=== PATIENT | male | born 1935 | race Caucasian/White ===

== ENCOUNTER → 2017-07-20 15:42 | Outpatient (CLI) | payer MEDICARE, SELFPAY ==
[2017-07-20 17:22] LABS: Hematocrit 43.8 % (40-54); Hemoglobin 13.9 g/dl (13.0-16.5); Mean Corp Hgb Conc 31.7 g/gl (32-36); Mean Corpuscular Hgb 28.8 pg (27.0-32.0); Mean Corpuscular Volume 90.9 fL (80-94); Mean Platelet Vol. 10.6 fl (6.2-12.0); Platelet Count 210 K/mm3 (150-450); RBC Distribution Width CV 18.5 % (11.6-14.6); RBC Distribution Width SD 59.8 fl (35.1-43.9); Red Blood Count 4.82 M/mm3 (4.6-6.2); White Blood Count 6.9 K/mm3 (4.4-11.0)
[2017-07-20 17:27] LABS: Scan Indicated on CBC? Y/N NO
[2017-07-20 17:28] LABS: Iron 32 ug/dL (65-175)
== END ==
PROVIDERS: Family Provider Family Medicine; PCP Family Medicine; Visit Provider Internal Medicine Gastroenterology
DX: D50.9 Iron deficiency anemia, unspecified (principal); K92.2 Gastrointestinal hemorrhage, unspecified
CPT/HCPCS: 36415; 83540; 85027

== ENCOUNTER 2017-07-30 10:55 | Day surgery (SDC) | payer MEDICARE, SELFPAY ==
--- NOTE | 2017-07-24 07:27 | EKG12_ITS ---
Test Reason : PRE-OP Blood Pressure : / mmHG Vent. Rate : 077 BPM Atrial Rate : 077 BPM P-R Int : 186 ms QRS Dur : 112 ms QT Int : 402 ms P-R-T Axes : 021 -12 004 degrees QTc Int : 454 ms Sinus rhythm with Premature atrial complexes Confirmed by THAIS STEPHENS, CHRISTINA ([id number]), editorial specialist ALEX CARPENTER ([id number]) on 07/25/2017 2:28:57 PM Referred By: Memo Rivero Confirmed By:CHRISTINA PLASCENCIA MD
[2017-07-24 08:14] LABS: Hemoglobin 13.9 g/dl (13.0-16.5); Mean Corp Hgb Conc 31.6 g/gl (32-36); Mean Corpuscular Hgb 28.8 pg (27.0-32.0); Mean Corpuscular Volume 91.1 fL (80-94); Mean Platelet Vol. 10.3 fl (6.2-12.0); Platelet Count 201 K/mm3 (150-450); RBC Distribution Width CV 17.8 % (11.6-14.6); RBC Distribution Width SD 59.4 fl (35.1-43.9); Red Blood Count 4.83 M/mm3 (4.6-6.2); Scan Indicated on CBC? Y/N NO
[2017-07-24 08:40] LABS: AST(SGOT) 17 U/L (15-37); Alanine Aminotransfer ALT/SGPT 20 U/L (16-61); Albumin, Serum 3.5 g/dL (3.2-5.0); Alkaline Phosphatase 77 U/L (45-117); Globulin 3.2 g/dL (2.2-4.2); Protein, Total 6.7 g/dL (6.4-8.2)
[2017-07-24 08:54] LABS: International Normalized Ratio 1.1; Prothrombin Time (Protime)PT. 13.6 SECONDS (11.7-14.9)
[2017-07-30] VITALS (8 sets, daily range): BP systolic 124–153; BP diastolic 89–101; PULSE 79–112; RESP 16–18; TEMP 36.3–36.4; O2SAT 98–100; BMI 33.0
--- NOTE | 2017-07-30 | MISC_PTH ---
PATIENT: BAO LUGO LOC: [facility] [place] U#:[id number] AGE/SX: 81/M ROOM: RE07/30/[address]: Dr. Memo Rivero MD : [id number] BED: DIS: 07/30/2017 SPEC #: [id number] RECD: 07/30/17 15:11 STATUS: STONEFalguni KAYLEIGH #: [id number] JANEE: 07/30/17 00:[address]: Memo Rivero DEPT: SURGICAL PATHOLOGY RECD BY: Zeeshan Martínez ENTERED: 07/30/17 15:25 SP TYPE: MISC SEVEN DR: Dr. Pranav Castaneda, DO Tissues: Adipose tissue Procedures: Surgery Specimen Level III HEADER OPERATION: Hernia, inguinal wish mesh PRE-OP DIAGNOSIS: Left inguinal hernia TISSUE SUBMITTED: Preperineal fat MICROSCOPIC DIAGNOSIS Preperineal fat, excision: Mature adipose tissue. AM:matilda 07/31/17 COMMENT The lesion may represent a lipoma. Clinical correlation is suggested. MICROSCOPIC DESCRIPTION Slides are reviewed. GROSS DESCRIPTION Received in fixative is one container labeled with the patient's name and designated preperineal fat. The specimen consists of an irregular fragment of yellow fatty tissue measuring 23 x 11 x 3.5 cm. Sections reveal homogenous yellow cut surfaces without areas of cyst formation, necrosis or myxoid change. [place] sections are submitted in one cassette. / AM:matilda 07/30/17 TC:1 CPT: 71417
[2017-07-30] MEDS: Cefazolin 2 GM in 0.9% Normal Saline 100 ML IV (12:27)
[2017-07-30] MEDS: Bupivacaine 0.25% 30 ML Vial (13:00)
--- NOTE | 2017-07-30 14:10 | PCM.OPRPT ---
Report of Operation Date of Procedure: 07/30/17 Pre-Operative Diagnosis: left inguinal hernia Post-Operative Diagnosis: left inguinal hernia - indirect with large preperitoneal fat Surgery/Procedure Performed:: left inguinal hernia with mesh plug - Large enlisted advisor: Arnold Ag Type of Anesthesia:: Local MAC Anesthesiologist: Mono Gonzalez - ASA2 Specimen's removed: preperitoneal fat Estimated Blood Loss (mL): 20 Fluids Replaced: 1500 Description of Procedure: The patient was brought to the operating suite. Sign in was performed verifying patient, site, procedure, position, and DVT prophylaxis with SCDs. Patient received 2 g Ancef antibiotic prophylaxis. Following induction of IV sedation, the patients left inguinal region was prepped and draped in the usual fashion. Timeout was performed verifying patient, site, position. Local anesthetic was injected at the site of the anterior superior iliac spine for a regional block. The 50-50 mixture of lidocaine and Marcaine was then injected along the planned course of the skin incision. A linear incision was made and dissection carried down to the external oblique aponeurosis. Traversing veins ligated with 3-0 Vicryl ties and divided. Local anesthetic was then injected into the inguinal canal. A clean scalpel blade was used to open the lower canal in the direction of the fibers and a Metzenbaum scissor was used to further dissect and open the canal. Care was taken to avoid injury to the ilioinguinal nerve. Following this, the spermatic cord was surrounded at the level of the pubic tubercle and brought up in the operative field with a [place] drain. a large amount of preperitoneal fat was contained in a very thin sac which continued out the external inguinal ring and into this hemiscrotum. This was reproduced. Dissection was continued up to the internal ring clearing the cremasteric fibers. The patient was noted to have a weak floor but no true direct inguinal hernia. Dissection of the cord was undertaken which demonstrated a large amount of preperitoneal fat and what seemed to be a smaller indirect hernia. Dissection of this large amount of fat with a mushroom shaped area which was not able to be fully reduced, was sequentially dissected, divided and ligated with 3-0 Vicryl ties. At this point. This preperitoneal fat was able to reduced and was felt to be a smaller hernia defect was also reduced. There was no true sac which was opened. This again seen. The preperitoneal and did not seem to enter the abdominal cavity with digital insertion. A large mesh plug was then placed into the internal ring and secured with interrupted 0 Prolene sutures. [place] mesh was secured using a Bard keyhole shaped mesh secured at the level of the pubic tubercle and run from [place]opers ligament transitioning to the ilioinguinal ligament inferiorly using an 0 Prolene suture. Next an 0 Prolene suture was used to secure the mesh to the transversus arch. The tails of the mesh were placed around the spermatic cord to create a new internal ring and the tails closed with a running 0 Prolene suture. The spermatic cord and the ilioinguinal nerve returned to its anatomic position. The external oblique was closed with a running 3-0 Vicryl suture. Subcutaneous fat was closed with interrupted 3-0 Vicryl suture. Skin was closed with a running 4-0 Monocryl subcuticular sutures. Steri-Strips and bandages were applied. The patient was brought to recovery room in stable condition. Grafts/Implants Used: Bard Mesh Perfix Large - [id number] Lot [id number] - exp 12/13/2021 - Admit VTE Documentation VTE Present on Admission: No VTE Mechan Device Prophylaxis: SCD's VTE Pharm Prophylaxis ordered?: No
--- NOTE | 2017-07-30 14:18 | PCM.DC.HER ---
Discharge Diet: Light diet - advance as tolerated Discharge Activity: Return to Normal Activity, May Drive - when you are no longer taking narcotic pain medications., May Shower - with the bandage in place 1-2 days after surgery. Lifting Restrictions: 20 pounds for 8 weeks. Additional Activity Instructions:: Climbing stairs is fine, walking is encouraged. Sitting in bed may be uncomfortable. Sitting up using your lateral muscles (sitting up sideways) is usually more comfortable. Do not drive, work heavy equipment of sign legal documents for 24 hours. If your hernia repair was an ingunial repair, you may have scrotal swelling, an ice pack and/or athletic support can provide more comfort. Pain medications may cause nausea, you should typically eat light foods as you take your pain medications. Pain medications may also cause constipation. If you have difficulty with this, discuss with your doctor. Call your doctor if your incision/area has: Continuous Slow Oozing, Sudden Increased Bleeding, Increased Pain/ Swelling, Increased Redness, Foul Smelling Discharge Call your doctor if you observe: Fever of 101 or Higher Suture Line Care: Avoid Pulling/Pushing, Avoid Pinching/Bending Additional Dressing/Incision Instructions:: Leave the operative bandage on for 2-3 days. When you remove the bandage, leave the steri-strips on place until your follow up appointment or they fall off. Allergies/Adverse Reactions: Allergies iodine Allergy (Verified 07/23/17 14:12) Anaphylaxis shellfish derived Allergy (Verified 07/23/17 14:13) Anaphylaxis Medications to take at Discharge Lovastatin [Mevacor] 40 mg PO QHS 12/30/13 Cholecalciferol (Vitamin D3) [Vitamin D3] 1,000 unit PO QHS 05/28/17 Cyanocobalamin (Vitamin B-12) [Vitamin B12] 1,000 mcg PO QHS 05/28/17 Omeprazole [Prilosec] 20 mg PO QHS 05/28/17 Ascorbic Acid [Vitamin C] 500 mg PO DAILY 07/23/17 Cetirizine HCl [Zyrtec] 10 mg PO DAILY 07/23/17 Fluticasone 0.05% [Flonase Nasal [place]] 1 spray NASAL DAILY 07/23/17 Ferrous Sulfate 325 mg PO DAILY 07/30/17 Oxycodone [Oxyir] 5 mg PO Q6H PRN PRN 7 Days #14 tab 07/30/17 The following prescriptions were given: Oxycodone [Oxyir] 5 mg PO Q6H PRN PRN 7 Days #14 tab PRN Reason: Mod-Severe Pain (-03/27) Primary Care Physician: Pranav Castaneda DO [Primary Care Provider] - Please Follow Up With: Memo Rivero MD - [phone] When: Plan to have a follow up appointment in 7 days. Call to schedule.
== END 2017-07-30 16:00 | disposition home or self-care (01) ==
LOC: SDC 10:56 → AC 10:57
PROVIDERS: Family Provider Family Medicine; PCP Family Medicine; Visit Provider Surgery
PROC: (CPT 49505; principal; 2017-07-30 12:15)
DX: K40.90 Unilateral inguinal hernia, without obstruction or gangrene, not specified as recurrent (principal); K21.9 Gastro-esophageal reflux disease without esophagitis; E78.5 Hyperlipidemia, unspecified; I10 Essential (primary) hypertension; Z85.46 Personal history of malignant neoplasm of prostate; Z86.73 Personal history of transient ischemic attack (TIA), and cerebral infarction without residual deficits; Z87.442 Personal history of urinary calculi; Z79.899 Other long term (current) drug therapy; Z87.891 Personal history of nicotine dependence; Z86.718 Personal history of other venous thrombosis and embolism
CPT/HCPCS: 49505; 36415; 80076; 85027; 85610; 85730; 88304; J7120; C1781; J2405

== ENCOUNTER 2017-08-06 15:46 | Emergency (ER) | payer MEDICARE, SELFPAY ==
[2017-08-06 15:48] VITALS: BP 138/69; PULSE 104; RESP 16; TEMP 36.6; O2SAT 99; BMI 32.8
--- NOTE | 2017-08-06 16:35 | ED.DCSUM_ITS ---
- ER Visit Summary Date of Service: 08/06/17 Chief Complaint: Patient venous duplex positive for gastrocnemius DVT History of Present Illness: The patient is a 81 M who recently had left inguinal hernia repair by Dr. Myers on July 30. He presents because he had an outpatient venous duplex study that reveals a gastrocnemius clot that is 3 cm in length. He was diagnosed with a GI bleed July 20. He was told by Dr. Beatty that he should not take aspirin or any anticoagulant. He denies fever, chills night sweats. He denies shortness of breath, chest discomfort or hemoptysis. He has no other complaints. Past medical history of CVA ?3, diabetes, hypertension, hypercholesterolemia and GERD. He has a remote history of prostate cancer, 20 years ago. He also had stent placed for abdominal aortic aneurysm that measured 4.7 cm. Physical Examination: Signs are unremarkable. Heart rate on my exam was 90. Examination of the left lower extremity reveals pain palpation mid calf. There is no neurovascular compromise. Heart is regular without murmur, gallop or rub. Lungs clear to auscultation. Test Results: Reviewed dictated notes regarding outpatient venous duplex study Emergency Department Course and Treatment: Patient was told that a recent significant GI bleed anticoagulation is contraindicated. Since this clot is below the popliteal patient will have outpatient follow-up ultrasound on August 09, , August 20 and September 03. I did speak with the nurse practitioner who sent him to the emergency room. She was told the plan. Furthermore she was told if the clot propagates into the popliteal or femoral system he will need a Elias filter. Treatment Plan: Serial outpatient venous duplex studies Disposition: Discharge to home with outpatient venous duplex studies Impression: DVT left gastrocnemius pain This note was generated with [employer] dictation software. It may contain incorrect words, spelling, and punctuation that were not noted in review of the chart prior to signing ED Disposition - Plan for ED Patient: Disposition: Home or Assisted Living Chief Complaint: Lower Extremity Injury Instructions: ED DVT Referrals: Pranav Castaneda DO [Primary Care Provider] -
== END 2017-08-06 17:09 | disposition home or self-care (01) ==
PROVIDERS: Emergency Provider Emergency Medicine; Family Provider Family Medicine; PCP Family Medicine
DX: I82.4Z2 Acute embolism and thrombosis of unspecified deep veins of left distal lower extremity (principal); Z98.890 Other specified postprocedural states; Z86.73 Personal history of transient ischemic attack (TIA), and cerebral infarction without residual deficits; Z85.46 Personal history of malignant neoplasm of prostate; Z95.9 Presence of cardiac and vascular implant and graft, unspecified
CPT/HCPCS: 99282

== ENCOUNTER → 2017-08-09 13:12 | Outpatient (CLI) | payer MEDICARE, SELFPAY ==
--- NOTE | 2017-08-09 13:25 | VDLE_ITS ---
RIGHT LEFT CFV is compressible, spontaneous, phasic, GSV is normal. competent and demonstrates normal CFV is compressible, spontaneous, phasic, augmentation. competent, and demonstrates normal Procedure augmentation. Exam performed in department. FV is compressible, spontaneous, phasic, The exam was diagnostic. competent and demonstrates normal A preliminary report was called and/or faxed augmentation. to Dr. Castaneda's office. POP V is compressible, spontaneous, phasic, competent and demonstrates normal augmentation. T/P Trunk is compressible. PTV is compressible. LT PerV is compressible. Gastroc V and Soleus V are dilated and noncompressible. Interpretation Summary Acute deep vein thrombosis is noted in the left gastrocnemius vein. Acute deep vein thrombosis is noted in the left soleus vein. The remainder of the left lower extremity deep venous system is patent and compressible. Valvular competence appears intact within the proximal deep venous system on the left . The left greater saphenous vein appears patent and compressible segmentally. Ordering Physician: Himanshu Garcia Referring Physician: Pranav Castaneda / Dr. Rivero Performed By: Daniel Ramos, RVT
== END ==
PROVIDERS: Family Provider Family Medicine; PCP Family Medicine; Visit Provider Emergency Medicine
DX: I82.4Z2 Acute embolism and thrombosis of unspecified deep veins of left distal lower extremity (principal)
CPT/HCPCS: 93971

== ENCOUNTER → 2017-08-13 10:50 | Outpatient (CLI) | payer MEDICARE, SELFPAY ==
--- NOTE | 2017-08-13 10:56 | VDLE_ITS ---
Reason For Study: F/U LLE DVT RIGHT LEFT CFV is compressible, spontaneous, phasic, GSV is normal. competent and demonstrates normal CFV is compressible, spontaneous, phasic, augmentation. competent, and demonstrates normal Procedure augmentation. Exam performed in department. FV is compressible, spontaneous, phasic, A preliminary report was called and/or faxed competent and demonstrates normal to Dr. Castaneda. augmentation. POP V is compressible, spontaneous, phasic, competent and demonstrates normal augmentation. T/P Trunk is compressible. PTV is compressible. LT PerV is compressible. Gastroc veins and Soleus vein are dilated and non-compressible. No change from previous exam. Interpretation Summary Acute deep vein thrombosis is noted in the left gastrocnemius vein. Acute deep vein thrombosis is noted in the left soleus vein. The remainder of the left lower extremity deep venous system is patent and compressible. Valvular competence appears intact within the proximal deep venous system on the left . The left greater saphenous vein appears patent and compressible segmentally. There has been no change since a prior study on 08/09/2017. Ordering Physician: Himanshu Garcia Referring Physician: Pranav Castaneda Performed By: Angi Esquivel RVT
== END ==
PROVIDERS: Family Provider Family Medicine; PCP Family Medicine; Visit Provider Emergency Medicine
DX: I82.4Z2 Acute embolism and thrombosis of unspecified deep veins of left distal lower extremity (principal)
CPT/HCPCS: 93971

== ENCOUNTER → 2017-08-20 10:58 | Outpatient (CLI) | payer MEDICARE, SELFPAY ==
--- NOTE | 2017-08-20 11:02 | VDLE_ITS ---
Reason For Study: F/U DVT Procedure LEFT Exam performed in department. GSV is normal. The study was technically difficult. FV is compressible, spontaneous, phasic, PT unable to tolerate compressions in left competent and demonstrates normal groin due to left inguinal hernia repair augmentation. (07/30/17). POP V is compressible, spontaneous, phasic, A preliminary report was called and/or faxed competent and demonstrates normal to DR. Castaneda @ 11:40 am. augmentation. T/P Trunk is compressible. PTV is compressible. LT PerV is compressible. CFV is spontaneous, phasic, competent and demonstrates normal augmentation. PT unable to tolerate compression of groin due to recent surgery. Gastrocnemius V & Soleus V are dilated and non compressible, No significant change from previous exam 08/13/17. Interpretation Summary Acute deep vein thrombosis is noted in the left gastrocnemius vein. Acute deep vein thrombosis is noted in the left soleus vein. The remainder of the left lower extremity deep venous system is patent and compressible. Valvular competence appears intact within the proximal deep venous system on the left . The left greater saphenous vein appears patent and compressible segmentally. There has been no significant change since a prior study on 08/13/2017. Ordering Physician: Himanshu Garcia Referring Physician: Pranav Castaneda Performed By: Leanne Trimble, RDCS, RVT
== END ==
PROVIDERS: Family Provider Family Medicine; PCP Family Medicine; Visit Provider Emergency Medicine
DX: I82.4Z2 Acute embolism and thrombosis of unspecified deep veins of left distal lower extremity (principal); R60.0 Localized edema
CPT/HCPCS: 93971

== ENCOUNTER → 2017-09-03 10:46 | Outpatient (CLI) | payer MEDICARE, SELFPAY ==
--- NOTE | 2017-09-03 10:57 | VDLE_ITS ---
Reason For Study: F/U DVT RIGHT LEFT CFV is compressible, spontaneous, phasic, GSV is normal. competent and demonstrates normal CFV is compressible, spontaneous, phasic, augmentation. competent, and demonstrates normal Procedure augmentation. Exam performed in department. FV is compressible, spontaneous, phasic, A preliminary report was called and/or faxed competent and demonstrates normal to Dr. Castaneda. augmentation. POP V is compressible, spontaneous, phasic, competent and demonstrates normal augmentation. T/P Trunk is compressible. PTV is compressible. LT PerV is compressible. Lt GastrocV and Lt SoleusV are dilated and non compressible, no significant change from previous study done on 08/20/2017. Interpretation Summary Acute deep vein thrombosis is noted in the left gastrocnemius vein. Acute deep vein thrombosis is noted in the left soleus vein. The remainder of the left lower extremity deep venous system is patent and compressible. Valvular competence appears intact within the proximal deep venous system on the left . The left greater saphenous vein appears patent and compressible segmentally. There has been no significant change since a prior study on 08/20/2017. Ordering Physician: Himanshu Garcia Referring Physician: Pranav Castaneda Performed By: Dea Foreman RDCS, RVT
== END ==
PROVIDERS: Family Provider Family Medicine; PCP Family Medicine; Visit Provider Emergency Medicine
DX: I82.4Z2 Acute embolism and thrombosis of unspecified deep veins of left distal lower extremity (principal)
CPT/HCPCS: 93971

== ENCOUNTER → 2017-10-01 10:55 | Outpatient (CLI) | payer MEDICARE, SELFPAY ==
--- NOTE | 2017-10-01 10:57 | VDLE_ITS ---
Reason For Study: Follow Up LLE DVT RIGHT LEFT CFV is compressible, spontaneous, phasic, GSV is normal. competent and demonstrates normal CFV is compressible, spontaneous, phasic, augmentation. competent, and demonstrates normal Procedure augmentation. Exam performed in department. FV is compressible, spontaneous, phasic, A preliminary report was called and/or faxed competent and demonstrates normal to Dr. Castaneda. augmentation. POP V is compressible, spontaneous, phasic, competent and demonstrates normal augmentation. T/P Trunk is compressible. PTV is compressible. LT PerV is compressible. Lt GastrocV is partially compressible; improvement from previous study Lt SoleusV is dilated and non compressible; no change from previous study Hypoechoic, non vascular structure noted Lt Pop Fossa measuring 0.84cm x 2.97cm. Interpretation Summary Acute deep vein thrombosis is noted in the left gastrocnemius vein. Acute deep vein thrombosis is noted in the left soleus vein. The remainder of the left lower extremity deep venous system is patent and compressible. Valvular competence appears intact within the proximal deep venous system on the left . The left greater saphenous vein appears patent and compressible segmentally. There has been improvement in the acute deep vein thrombosis in the left gastrocnemius vein, which is now partially compressible. A non-vascular, hypoechoic structure is noted in the left popliteal space, measuring 0.84 cm x 2.97 cm. This probably represents a popliteal cyst. Clinical correlation is advised. Ordering Physician: Pranav Castaneda Referring Physician: Pranav Castaneda Performed By: Dea Foreman, YESI, RVT
== END ==
PROVIDERS: Family Provider Family Medicine; PCP Family Medicine; Visit Provider Family Medicine
DX: I82.492 Acute embolism and thrombosis of other specified deep vein of left lower extremity (principal)
CPT/HCPCS: 93971

== ENCOUNTER → 2018-07-10 08:26 | Outpatient (CLI) | payer MEDICARE, SELFPAY ==
[2017-08-15 08:48] VITALS: BMI 33.0
[2018-07-10 08:46] LABS: Bacteria 0 SEEN /hpf (None Seen); Mucous, Urine 0 SEEN /hpf (<or=2+); Squamous Epithelial Cells - UA 0 SEEN /hpf (0-5)
[2018-07-10 08:56] LABS: Absolute Lymphocyte Count 1.64 X10^3/ul (0.83-4.51); Absolute Neutrophil Count 4.6 X10^3/uL (2.0-7.7); Basophil# 0.04 X10^3/uL; Basophil% 0.6 % (0-1); Eosinophils% 2.9 % (0-5); Hematocrit 46.1 % (40-54); Hemoglobin 15.3 g/dl (13.0-16.5); Lymphocyte # 1.64 X10^3/ul (4.0); Lymphocyte % 23.5 % (19-41); Mean Corp Hgb Conc 33.2 g/gl (32-36); Mean Corpuscular Volume 96.4 fL (80-94); Mean Platelet Vol. 10.2 fl (6.2-12.0); Monocyte# 0.51 X10^3/uL; Monocyte% 7.3 % (0-10); Neutrophil # 4.56 X10^3/uL (2.7-7.7); Neutrophil % 65.4 % (47-70); Platelet Count 214 K/mm3 (150-450); RBC Distribution Width CV 13.7 % (11.6-14.6); RBC Distribution Width SD 47.5 fl (35.1-43.9); Red Blood Count 4.78 M/mm3 (4.6-6.2)
[2018-07-10 08:58] LABS: POSITIVE COUNT NO; POSITIVE DIFFERENTIAL NO; POSITIVE MORPHOLOGY NO
[2018-07-10 09:03] LABS: Color, Urine Yellow (Yellow); Glucose, Dipstick Normal (Normal); Ketone-Dipstick Negative (Negative); Leukocyte Esterase-Dipstick 25 /ul (Negative); Nitrite-Dipstick Negative (Negative); Occult Blood-Urine 150 /ul (Negative); Protein-Dipstick 15 mg/dl (Negative); Specific Gravity, Urine 1.015 (1.002-1.030); Urine Bilirubin Dipstick Negative (Negative); Urine Clarity Clear (Clear); Urine Urobilinogen Normal (Normal)
[2018-07-10 09:15] LABS: ALB/GLOB Ratio 1.1 RATIO (0.9-2.4); AST(SGOT) 15 U/L (15-37); Alanine Aminotransfer ALT/SGPT 23 U/L (16-61); Albumin, Serum 3.7 g/dL (3.2-5.0); Alkaline Phosphatase 76 U/L (45-117); Anion Gap 7 (5-15); BUN 24 mg/dL (7-18); BUN/Creat Ratio 25.2 RATIO (10-20); Calcium,Total 9.1 mg/dL (8.5-10.1); Chloride 111 mmol/L (98-107); Cholesterol 154 mg/dL (200); Creatinine, Serum 0.95 mg/dL (0.70-1.30); EST Glomerular Filtration Rate 81 mL/min (>60); Est Glom Filt Rate - Afr Amer 98 mL/min (>60); Ferritin 45 ng/mL (26-388); Globulin 3.5 g/dL (2.2-4.2); Glucose 90 mg/dL (74-106); High Density Lipoprotein 57 mg/dL; Iron 108 ug/dL (65-175); Potassium 3.9 mmol/L (3.5-5.1); Protein, Total 7.2 g/dL (6.4-8.2); Sodium Level 145 mmol/L (136-145); Triglycerides 94 mg/dL; Very Low Density Lipoprotein 19 mg/dL (5-40)
[2018-07-10 09:17] LABS: Red Blood Cells-Urine 0-5 SEEN /hpf (0-5); White Blood Cells 5-10 SEEN /hpf (0-5)
--- OUTSIDE RECORDS SUMMARY | 2018-09-11 03:08 | XMS RPT_ITS ---
:1935 Author Organization OHIP Support Name Relationship Address Phone JJ LUGO Unavailable [id number] + [place] [address] R Unavailable Unavailable Unavailable PARISH JJ Unavailable [id number] [place] [address] RD + [place] [address] R Unavailable Unavailable Unavailable MARIELENA LUGOCA Unavailable [address] + [place] [address] R Unavailable Unavailable Unavailable PARISH JJ Unavailable [address] + [place] [address] R Unavailable Unavailable Unavailable PARISH JJ Unavailable [address] + [place] [address] R Unavailable Unavailable Unavailable PARISH JJ Unavailable [address] [phone] [place] [address] R Unavailable Unavailable Unavailable PARISH JJ Unavailable [address] [phone] [place] [address] R Unavailable Unavailable Unavailable PARISH JJ Unavailable [address] [phone] [place] [address] R Unavailable Unavailable Unavailable PARISH JJ Unavailable [address] [phone] [place] [address] R Unavailable Unavailable Unavailable MARIELENA LUGOCA Unavailable [address] [phone] [place] [address] R Unavailable Unavailable Unavailable PARISH JJ Unavailable [address] [phone] [place] [address] R Unavailable Unavailable Unavailable PARISH, JJ Unavailable [address] + [place] [address] R Unavailable Unavailable Unavailable PARISH, JJ Unavailable [address] [phone] [place] [address] R Unavailable Unavailable Unavailable Care Team Providers Name Role Phone MEMO RILEY Attending Unavailable RACHEL HICKS ([place]) Attending Unavailable RACHEL HICKS ([place]) Referring Unavailable LeonelPranav Attending Unavailable Leonel, Pranav Referring Unavailable Leonel, Pranav Primary Care Unavailable Jeff Beatty Attending Unavailable Jeff Beatty Referring Unavailable Leonel, Pranav Primary Care Unavailable Memo Riley Attending Unavailable Leonel, Pranav Primary Care Unavailable Memo Riley Referring Unavailable Leonel, Pranav Primary Care Unavailable Garcia, Himanshu Attending Unavailable Garcia, Himanshu Attending Unavailable Garcia, Himanshu Referring Unavailable Leonel, Pranav Primary Care Unavailable Garcia, Himanshu Attending Unavailable Garcia, Himanshu Referring Unavailable Leonel, Pranav Primary Care Unavailable Memo Riley Consulting Unavailable Sammi Chin Attending Unavailable Sammi Chin Attending Unavailable Tristin, John Attending Unavailable Leonel, Pranav Referring Unavailable Leonel, Pranav Primary Care Unavailable Garcia, Himanshu Attending Unavailable Garcia, Himanshu Referring Unavailable Leonel, Pranav Primary Care Unavailable Garcia, Himanshu Attending Unavailable Garcia, Himanshu Referring Unavailable Leonel, Pranav Primary Care Unavailable Gareth Plascencia Attending Unavailable Memo Riley Referring Unavailable Pranav Castaneda Attending Unavailable Leonel, Pranav Referring Unavailable Leonel, Pranav Primary Care Unavailable PROBLEMS PROBLEMS DATE TYPE CONDITION / CODE ATTENDING STATUS SOURCE 08/15/2017 Unknown I34.0 - [place], [place] Active [facility] (valve) [facility] insufficiency / Repository I34.0(ICD-10) 08/15/2017 Unknown I36.1 - [place], [place] Active [place] [facility] tricuspid (valve) Hospital insufficiency / Repository I36.1(ICD-10) 08/15/2017 Unknown I10 - Essential Tristin, John Active [place] (primary) Community hypertension / Hospital I10(ICD-10) Repository 08/15/2017 Unknown I82.4Z2 - Acute Tristin, John Active [facility] embolism and Community thrombosis of Hospital unspecified deep Repository veins of left distal lower extremity / I82.4Z2(ICD-10) 08/06/2017 Active Other specified NA Active [facility] soft tissue [place] disorders / Repository M79.89(ICD-10) 08/06/2017 Active Personal history of NA Active [facility] other venous [place] thrombosis and Repository embolism / Z86.718(ICD-10) 07/31/2017 Unknown K40.90 - Unilateral Mat, Active [facility] inguinal hernia, Memo Community without obstruction Hospital or gangrene, not Repository specified as recurrent / K40.90(ICD-10) PROCEDURES PROCEDURES No Procedure Records FoundRESULTS RESULTS CBC W/DIFF, AUTOMATED Collected: 07/10/2018 Status: F Source: [place] 8:40 AM [facility] REPOSITORY TYPE CODE TESTS RESULT OUT OF RANGE REFERENCE UNITS LAB L100.1000 4.4-11.0 K/mm3 Normal WBC 7.0 LAB L100.1200 4.6-6.2 M/mm3 Normal RBC 4.78 LAB L100.1300 13.0-16.5 g/dl Normal HGB 15.3 LAB L100.1400 40-54 % Normal HCT 46.1 LAB L100.1500 80-94 fL High MCV 96.4 LAB L100.1600 27.0-32.0 pg Normal MCH 32.0 LAB L100.1700 32-36 g/gl Normal MCHC 33.2 LAB L100.1810 11.6-14.6 % Normal RDW CV 13.7 LAB L100.1820 35.1-43.9 fl High RDW SD 47.5 LAB L100.1900 150-450 K/mm3 Normal PLT 214 LAB L100.2000 6.2-12.0 fl Normal MPV 10.2 LAB L100.2100 47-70 % Normal NEUT% 65.4 LAB L100.2200 19-41 % Normal LY% 23.5 LAB L100.2300 0-10 % Normal MONO% 7.3 LAB L100.2400 0-5 % Normal EO% 2.9 LAB L100.2500 0-1 % Normal BASO% 0.6 LAB L100.2550 0.0-0.9 % Normal IM GRAN % 0.300 Result Comment: IG% - Immature Granulocytes (promyelocytes, myelocytes and metamyelocytes) > 1% indicates that a LEFT SHIFT is Present. LAB L100.2620 2.0-7.7 X10 3/uL Normal Absolute Neut 4.6 LAB L100.2720 0.83-4.51 X10 3/ul Normal Absolute Lymph 1.64 Performed By: #### L100.0100 #### [facility] [address] [place], [address] URINALYSIS, COMPLETE Collected: 07/10/2018 Status: F Source: [place] 8:40 AM [facility] REPOSITORY Order Comment: REFLEX TO CULTURE IF NEEDED PER ORDER How was Urine Obtained? CLEAN CATCH TYPE CODE TESTS RESULT OUT OF RANGE REFERENCE UNITS LAB L400.3000 Yellow COLOR Normal Yellow LAB L400.3050 Clear Normal CLARITY Clear LAB L400.3200 Normal mg/dl Normal GLUCOSE, UR Normal LAB L400.3300 Negative mg/dL Normal BILIRUBIN URINE Negative LAB L400.3400 Negative mg/dl Normal KETONE UR Negative LAB L400.3465 1.002-1.030 Normal SP.GR. DIPSTX 1.015 LAB L400.3550 5.0 - 8.0 pH UR Normal 5.0 LAB L400.3600 Negative mg/dl High PROT 15 DIPSTX LAB L400.3700 Normal mg/dl Normal UROBILI Normal LAB L400.3750 Negative Normal NITRITE UR Negative LAB L400.3780 Negative /ul High OCCULT BLOOD-UR 150 LAB L400.3800 Negative /ul High LEUK 25 ESTERASE LAB L400.4050 0-5 /hpf WBC Normal 5-10 SEEN LAB L400.4100 0-5 /hpf Normal RBC-UA 0-5 SEEN LAB L400.4150 0-5 /hpf SQUAM 0 Normal EPI SEEN LAB L400.4300 None Seen /hpf 0 Normal BACTERIA SEEN LAB L400.4350 <or=2+ /hpf 0 Normal MUCUS, URINE SEEN Performed By: #### L400.0001 #### [facility] [address] [place], [place], [address] COMPREHENSIVE METABOLIC Collected: 07/10/2018 Status: F Source: [facility] 8:40 AM [facility] REPOSITORY TYPE CODE TESTS RESULT OUT OF RANGE REFERENCE UNITS LAB L501.0100 74-106 mg/dL Normal GLU 90 Result Comment: Please note revised GLUCOSE reference range effective 2017. LAB L501.1000 7-18 mg/dL High BUN 24 LAB L501.1100 0.70-1.30 mg/dL Normal CREAT,SERUM 0.95 Result Comment: The validity of the calculated GFR AND GFRAA in patients over 70 years has not been determined. Clinical correlation is essential. LAB L501.1110 >60 mL/min Normal EST GFR 81 Result Comment: Non- GFR Calc LAB L501.1115 >60 mL/min Normal EST GFR - AA 98 Result Comment: GFR Calc LAB L501.1300 10-20 RATIO High BUN/CRE 25.2 LAB L501.1500 6.4-8.2 g/dL T Normal PROT 7.2 LAB L501.1800 3.2-5.0 g/dL Normal ALB 3.7 LAB L501.1950 2.2-4.2 g/dL Normal GLOB 3.5 LAB L501.2000 0.9-2.4 RATIO Normal A/G 1.1 LAB L501.2200 8.5-10.1 mg/dL CA Normal 9.1 LAB L501.4100 15-37 U/L Normal AST 15 LAB L501.4305 45-117 U/L Normal ALK P 76 LAB L501.4405 16-61 U/L Normal ALT 23 LAB L501.4600 0.20-1.00 mg/dL T Normal BILI 0.60 LAB L501.5300 136-145 mmol/L NA Normal 145 LAB L501.5600 3.5-5.1 mmol/L K Normal 3.9 LAB L501.5900 98-107 mmol/L High CL 111 LAB L501.6100 21.0-32.0 mmol/L Normal CO2 27.0 LAB L501.6200 5-15 Normal GAP 7 Performed By: #### L500.4050, L500.4100, L503.6150, L503.6550 #### [facility] [address] [place], [address] LIPID PROFILE Collected: 07/10/2018 Status: F Source: [place] 8:40 AM [facility] REPOSITORY TYPE CODE TESTS RESULT OUT OF RANGE REFERENCE UNITS LAB L501.4900 200 mg/dL Normal CHOL 154 Result Comment: <200 mg/dL Desirable 200-240 mg/dL Borderline >240 mg/dL High Risk LAB L501.5000 mg/dL Normal TRIG 94 Result Comment: The drugs N-Acetylcysteine and Metamizole may falsely depress this assay. Serum Triglycerides Reference Interval Normal <150 mg/dL Borderline high 150 - 199 mg/dL High 200 - 499 mg/dL Very High > or = 500 mg/dL LAB L501.6400 mg/dL Normal HDL 57 Result Comment: The drugs N-Acetylcysteine and Metamizole may falsely depress this assay. Reference Range HDL <40 mg/dL Low HDL Cholesterol HDL >or= 60 mg/dL High HDL Cholesterol LAB L501.6500 0-130 mg/dL Normal LDL 78 LAB L501.6600 5-40 mg/dL Normal VLDL 19 Performed By: #### L500.4050, L500.4100, L503.6150, L503.6550 #### [facility] [address] [place], [place], [address] IRON Collected: 07/10/2018 Status: F Source: [place] 8:40 AM [facility] REPOSITORY TYPE CODE TESTS RESULT OUT OF RANGE REFERENCE UNITS LAB L503.6150 65-175 ug/dL Normal IRON 108 Performed By: #### L500.4050, L500.4100, L503.6150, L503.6550 #### [facility] [address] [place], [place], [address] FERRITIN Collected: 07/10/2018 Status: F Source: [place] 8:40 AM [facility] [place] REPOSITORY TYPE CODE TESTS RESULT OUT OF RANGE REFERENCE UNITS LAB L503.6550 26-388 ng/mL Normal FERRITIN 45 Performed By: #### L500.4050, L500.4100, L503.6150, L503.6550 #### [facility] [address] [place], [place], [address] Observed: 07/10/2018 Status: F Source: [place] CULTURE, URINE 8:40 AM [facility] REPOSITORY Urine Culture Below infection level. ORGANISM 1: Streptococcus group B Tate Count <1000 Performed By: #### M100.0650 #### [facility] [address] [place], [address] VENOUS DUPLEX LOWER Observed: 10/01/2017 Status: F Source: [place] EXTREMITY 6:27 PM [facility] REPOSITORY [facility] Cardiovascular Services [address] [place] [address] Venous Duplex US, Unilateral 10/01/17 1059 MR#: [id number] Acct: [id number] Name: BAO LUGO Rep #: [id number] : 1935 81 From: Alberto Lewis MD Attending Dr: Pranav Castaneda DO Status: REG CLI Ordering Dr: Pranav Castaneda DO Date: 10/01/17 Location: [facility] Sex: M C Admitted: Reason For Study: Follow Up LLE DVT RIGHT LEFT CFV is compressible, spontaneous, phasic, GSV is normal. competent and demonstrates normal CFV is compressible, spontaneous, phasic, augmentation. competent, and demonstrates normal Procedure augmentation. Exam performed in department. FV is compressible, spontaneous, phasic, A preliminary report was called and/or faxed competent and demonstrates normal to Dr. Castaneda. augmentation. POP V is compressible, spontaneous, phasic, competent and demonstrates normal augmentation. T/P Trunk is compressible. PTV is compressible. LT PerV is compressible. Lt GastrocV is partially compressible; improvement from previous study Lt SoleusV is dilated and non compressible; no change from previous study Hypoechoic, non vascular structure noted Lt Pop Fossa measuring 0.84cm x 2.97cm. Interpretation Summary Acute deep vein thrombosis is noted in the left gastrocnemius vein. Acute deep vein thrombosis is noted in the left soleus vein. The remainder of the left lower extremity deep venous system is patent and compressible. Valvular competence appears intact within the proximal deep venous system on the left . The left greater saphenous vein appears patent and compressible segmentally. There has been improvement in the acute deep vein thrombosis in the left gastrocnemius vein, which is now partially compressible. A non-vascular, hypoechoic structure is noted in the left popliteal space, measuring 0.84 cm x 2.97 cm. This probably represents a popliteal cyst. Clinical correlation is advised. Ordering Physician: Pranav Castaneda Referring Physician: Pranav Castaneda Performed By: Dea Foreman, RDCS, RVT 10/01/171826 Date Alberto Lewis MD CC: Pranav Castaneda DO Date Dictated: 10/01/17 1059 Date Transcribed: 10/01/171826 Bell Cleaner: Signed VENOUS DUPLEX LOWER Observed: 09/03/2017 Status: F Source: [facility] 5:35 PM [facility] [place] REPOSITORY [facility] Cardiovascular Services [address] [place] [address] Venous Duplex US, Unilateral 09/03/17 105 MR#: [id number] Acct: [id number] Name: BAO LUGO Rep #: [id number] : 1935 81 From: Alberto Lewis MD Attending Dr: Himanshu Garcai MD Status: REG CLI Ordering Dr: Himanshu Garcia MD Date: 09/03/17 Location: [facility] Sex: M C Admitted: Reason For Study: F/U DVT RIGHT LEFT CFV is compressible, spontaneous, phasic, GSV is normal. competent and demonstrates normal CFV is compressible, spontaneous, phasic, augmentation. competent, and demonstrates normal Procedure augmentation. Exam performed in department. FV is compressible, spontaneous, phasic, A preliminary report was called and/or faxed competent and demonstrates normal to Dr. Castaneda. augmentation. POP V is compressible, spontaneous, phasic, competent and demonstrates normal augmentation. T/P Trunk is compressible. PTV is compressible. LT PerV is compressible. Lt GastrocV and Lt SoleusV are dilated and non compressible, no significant change from previous study done on 08/20/2017. Interpretation Summary Acute deep vein thrombosis is noted in the left gastrocnemius vein. Acute deep vein thrombosis is noted in the left soleus vein. The remainder of the left lower extremity deep venous system is patent and compressible. Valvular competence appears intact within the proximal deep venous system on the left . The left greater saphenous vein appears patent and compressible segmentally. There has been no significant change since a prior study on 08/20/2017. Ordering Physician: Himanshu Garcia Referring Physician: Pranav Castaneda Performed By: Dea Foreman, YESI, RVT 09/03/17 173 Date Alberto Lewis MD CC: Pranav Castaneda DO; Himanshu Garcia MD Date Dictated: 09/03/17 1059 Date Transcribed: 09/03/171734 Bell Cleaner: Signed VENOUS DUPLEX LOWER Observed: 08/20/2017 Status: F Source: [place] EXTREMITY 9:07 PM [facility] [place] REPOSITORY [facility] Cardiovascular Services [address] [place] [address] Venous Duplex US, Unilateral 08/20/17 1107 MR#: [id number] Acct: [id number] Name: BAO LUGO Rep #: [id number] : 1935 81 From: Alberto Lewis MD Attending Dr: Himanshu Garcia MD Status: REG CLI Ordering Dr: Himanshu Garcia MD Date: 08/20/17 Location: [facility] Sex: M C Admitted: Reason For Study: F/U DVT Procedure LEFT Exam performed in department. GSV is normal. The study was technically difficult. FV is compressible, spontaneous, phasic, PT unable to tolerate compressions in left competent and demonstrates normal groin due to left inguinal hernia repair augmentation. (07/30/17). POP V is compressible, spontaneous, phasic, A preliminary report was called and/or faxed competent and demonstrates normal to DR. Castaneda @ 11:40 am. augmentation. T/P Trunk is compressible. PTV is compressible. LT PerV is compressible. CFV is spontaneous, phasic, competent and demonstrates normal augmentation. PT unable to tolerate compression of groin due to recent surgery. Gastrocnemius V AND Soleus V are dilated and non compressible, No significant change from previous exam 08/13/17. Interpretation Summary Acute deep vein thrombosis is noted in the left gastrocnemius vein. Acute deep vein thrombosis is noted in the left soleus vein. The remainder of the left lower extremity deep venous system is patent and compressible. Valvular competence appears intact within the proximal deep venous system on the left . The left greater saphenous vein appears patent and compressible segmentally. There has been no significant change since a prior study on 08/13/2017. Ordering Physician: Himanshu Garcia Referring Physician: Pranav Castaneda Performed By: Leanne Trimble, YESI, RVT 08/20/17 2107 Date Alberto Lewis MD CC: Pranav Castaneda DO; Himanshu Garcia MD Date Dictated: 08/20/17 1107 Date Transcribed: 08/20/172106 Bell Cleaner: Signed CARDIOLOGY VISIT Observed: 08/15/2017 Status: F Source: [place] REPORT 9:31 AM [facility] REPOSITORY [facility] [address] [place] [address] OFFICE VISIT Date of Service: 08/15/17 MR#: [id number] Acct: [id number] Name: BAO LUGO Rep #: [id number] : 1935 Provider: John Crow MD Age/Sex: 81/M Location: [facility] [place] [facility] Status: Signed HPI HPI Chief Complaint: Initial visit. Details: BAO LUGO, is a 81 M who presents to the office today for an initial visit. He is a gentleman with no previously documented coronary artery disease but a history of hypertension hyperlipidemia and abdominal aortic aneurysm endovascular graft repair remotely. He recently was diagnosed with an upper GI bleed when he was on aspirin and NSAIDs and he did receive 2 units of packed red blood cells. He had been short of breath at that time was noted to have a cardiac murmur. He thinks that he may have had a whole emesis heart long ago. He has not had any undue shortness of breath he has had some dizziness but no verónica syncopal episodes. He did undergo an inguinal hernia repair in July 2017 and subsequently developed an acute deep vein thrombosis. It appears that this is below knee. He is not on anticoagulation due to his recent GI bleed. He says that this chronic dizziness has been going on for over 45 years. He previously was noted to be hypertensive on antihypertensive medications but he was taken off this. He otherwise continues to do well he has had no neck arm or jaw discomfort suggest angina and no claudication. He has had no pedal edema. His physical exam today demonstrates clear lung mo regular rate and rhythm a 3/6 holosystolic murmur noted at the apex radiating to the axilla. Intake Vital Signs08/15/17 Height 6 ft 3 in Intake Visit Reasons: Tricuspid/Mitral insufficiency, ref'd by PCP Allergies iodine Allergy (Verified 08/15/17 08:48) Anaphylaxis shellfish derived Allergy (Verified 08/15/17 08:48) Anaphylaxis Medications Lovastatin [Mevacor] 40 mg PO QHS 12/30/13 [History Confirmed 08/15/17] Cholecalciferol (Vitamin D3) [Vitamin D3] 1,000 unit PO QHS 05/28/17 [History Confirmed 08/15/17] Cyanocobalamin (Vitamin B-12) [Vitamin B12] 1,000 mcg PO QHS 05/28/17 [History Confirmed 08/15/17] Omeprazole [Prilosec] 20 mg PO QHS 05/28/17 [History Confirmed 08/15/17] Ascorbic Acid [Vitamin C] 500 mg PO DAILY 07/23/17 [History Confirmed 08/15/17] Cetirizine HCl [Zyrtec] 10 mg PO DAILY 07/23/17 [History Confirmed 08/15/17] Fluticasone 0.05% [Flonase Nasal [place]] 1 spray NASAL DAILY 07/23/17 [History Confirmed 08/15/17] Ferrous Sulfate 325 mg PO DAILY 07/30/17 [History Confirmed 08/15/17] ramipril 5 mg capsule 5 mg PO QDAY #90 cap 08/15/17 [Rx Confirmed 08/15/17] [facility] Medical History CVA (cerebral vascular accident) (Chronic) Deep vein thrombosis (DVT) of left lower extremity (Acute 08/13/17) GI bleed (Chronic) Nonrheumatic mitral (valve) insufficiency (Chronic) Non-rheumatic tricuspid valve insufficiency (Chronic) Hyperlipidemia (Chronic) Hypertension (Chronic) Dizziness (Chronic) GERD (gastroesophageal reflux disease) (Chronic) Obesity (Chronic) Prostate CA (Chronic) Right nephrolithiasis (Chronic) Surgical History H/O lithotripsy (Chronic 2013) Hx of cholecystectomy (Chronic) H/O left inguinal hernia repair (Resolved 07/30/17) History of AAA (abdominal aortic aneurysm) repair (Resolved 2009) Family History Mother CAD (coronary artery disease) Father Colon cancer Social History Smoking Status: Former smoker ROS Const Const: Positive for other (C/O chronic dizziness); negative for fatigue, weakness, difficulty sleeping, frequent falls, headache(s) or excessive sweating Eyes Eyes: Positive for blurry vision; negative for loss of peripheral vision, transient loss of vision or double vision ENT ENT: Positive for dizziness; negative for headache(s), Nosebleed/epistaxis or balance problems Cardio Chest Pain: No Edema: Left Muscle aches with walking: None Resp Respiratory: Positive for SOB with activity (Climbing stairs); negative for SOB at rest, SOB orthopnea\SOB lying down or paroxysmal nocturnal dyspnea GI GI: Positive for other; negative nausea, heartburn or black,tarry stools : Negative for hematuria Musc Musc: Negative for muscle aches/ myalgia, muscle weakness, joint pain or balance problems Skin Skin: Negative non-healing lesions, unusual bruising or rash Neuro Neuro: Positive for blurry vision, dizziness, lightheadedness and other (Chronic bilateral hand numbness and facial numbness); negative for weakness, frequent falls, headache(s), orthostatic symptoms or double vision [place] Hematologic/Lymphatic: Negative for easy bruising Endo Endo: Negative for fatigue, excessive sweating or increased thirst/drinking Psych Psych: Negative for anxiety or depression Allergy Allergy/Immunology: Negative for hives, Negative for rash Cardiology Exam Const Appearance: cooperative, healthy appearing, well developed, well groomed and no acute distress Nutritional Appearance: well nourished and average body habitus Orientation: alert, awake and oriented x3 Head Head: normal to inspection, normocephalic and atraumatic Ears: hearing grossly normal bilaterally and external ears normal Nose: external nose normal, nasal mucous membranes and turbinates normal, nares normal, septum normal, no nasal discharge Face and Sinus: face symmetric Mouth: oral mucosae normal, tongue normal, oropharynx normal and moist mucous membranes Teeth and gingiva: dentition normal Throat: posterior oropharynx normal, tonsils normal and uvula midline Eyes General: appearance normal, both eyes and all related structures Eyelids: eyelids normal Conjunctivae: conjunctivae normal Pupils: PERRL, normal by confrontation and accommodation normal EOM: EOM intact bilaterally Neck Neck: normal visual inspection, trachea midline and no JVD JVD: +5 Carotids: normal carotid upstroke and bounding pulses Chest Chest inspection: normal inspection of the chest, symmetric chest movement and normal respiratory effort Auscultation: Bilateral: Clear to Auscultation Cardio Palpation: normal PMI Rate: regular rate Rhythm: regular rhythm Heart sounds: S1 normal and S2 normal Murmur: Grade 3/6, loud, holosystolic, apex and axilla GI GI: normal to inspection, soft, no hepatosplenomegaly and bowel sounds present Neuro General: alert, awake, oriented x3, no focal sensory deficit, gait normal and moves all extremities Skin Skin: no rashes or lesions noted Extremities Pulses: Normal: Right Femoral Pulse, Left Femoral Pulse, Right Dorsalis Pedis Pulse, Left Dorsalis Pedis Pulse, Right Posterior Tibial Pulse, Left Posterior Tibial Pulse, Right Radial Pulse, Left Radial Pulse Lower Extremity Edema: None: Bilateral Musculoskel Musculoskeletal: No joint tenderness Psych Psychological: normal affect Assessment AND Plan 1. Nonrheumatic mitral (valve) insufficiency I34.0 Plan He does have a cardiac murmur consistent with mitral regurgitation as echocardiographic findings which are corroborating the above. He has 2+ echo mitral regurgitation on his echocardiogram with preserved ejection fraction and 2+ tricuspid regurgitation. His pulmonary artery systolic pressures approximately 38 mmHg. At this time I will suggest that we continue to observe him. He may need an JUANA inhibitor when he is more stable from the GI standpoint. I would recommend serial yearly echoes to evaluate the above. Certainly if he gets more short of breath or dizzy he should not hesitate to let us know. 2. Non-rheumatic tricuspid valve insufficiency I36.1 Plan He does have evidence of mild tricuspid regurgitation with mildly elevated pulmonary pressures. I would not recommend any diuretics at this time as he is minimally symptomatic and will continue to observe him. 3. Essential hypertension I10 Plan He does have a previous diagnosis of hypertension but his blood pressure here appears to be [facility] minimally elevated only. I may recommend us to start low-dose JUANA inhibitor for his blood pressure. I would like to start him on ramipril 5 mg once a day. 4. Acute deep vein thrombosis (DVT) of distal vein of left lower extremity I82.4Z2 Plan He does have a history of deep vein thrombosis but to my understanding it is being managed conservatively due to his previous GI bleed and you are following up on the above. Thank you for allowing me to participate in his care. 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) Coding Level of Care Code Off vis,new,level 4 Diagnoses Nonrheumatic mitral (valve) insufficiency I34.0 Non-rheumatic tricuspid valve insufficiency I36.1 Essential hypertension I10 Hypertension type: essential hypertension Acute deep vein thrombosis (DVT) of distal vein of left lower extremity I82.4Z2 Affected thrombotic vein of extremity: unspecified lower extremity distal vein Chronicity: acute Coding Level of Care Code Off vis,new,level 4 Diagnoses Nonrheumatic mitral (valve) insufficiency I34.0 Non-rheumatic tricuspid valve insufficiency I36.1 Essential hypertension I10 Hypertension type: essential hypertension Acute deep vein thrombosis (DVT) of distal vein of left lower extremity I82.4Z2 Affected thrombotic vein of extremity: unspecified lower extremity distal vein Chronicity: acute 08/15/17 0931 <Electronically signed by John Crow MD> Date John Crow MD Cosigner Signature: Date (if applicable) CC: Pranav Castaneda DO VENOUS DUPLEX LOWER Observed: 08/13/2017 Status: F Source: [place] 10:52 PM [facility] [place] REPOSITORY [facility] Cardiovascular Services [address] [place] [address] Venous Duplex US, Unilateral 08/13/17 1058 MR#: [id number] Acct: [id number] Name: BAO LUGO Rep #: [id number] : 1935 81 From: Alberto Lewis MD Attending Dr: Himanshu Garcia MD Status: REG CLI Ordering Dr: Himanshu Garcia MD Date: 08/13/17 Location: CVS Sex: M C Admitted: Reason For Study: F/U LLE DVT RIGHT LEFT CFV is compressible, spontaneous, phasic, GSV is normal. competent and demonstrates normal CFV is compressible, spontaneous, phasic, augmentation. competent, and demonstrates normal Procedure augmentation. Exam performed in department. FV is compressible, spontaneous, phasic, A preliminary report was called and/or faxed competent and demonstrates normal to Dr. Castaneda. augmentation. POP V is compressible, spontaneous, phasic, competent and demonstrates normal augmentation. T/P Trunk is compressible. PTV is compressible. LT PerV is compressible. Gastroc veins and Soleus vein are dilated and non-compressible. No change from previous exam. Interpretation Summary Acute deep vein thrombosis is noted in the left gastrocnemius vein. Acute deep vein thrombosis is noted in the left soleus vein. The remainder of the left lower extremity deep venous system is patent and compressible. Valvular competence appears intact within the proximal deep venous system on the left . The left greater saphenous vein appears patent and compressible segmentally. There has been no change since a prior study on 08/09/2017. Ordering Physician: Himanshu Garcia Referring Physician: Pranav Castaneda Performed By: Angi Esquivel RVT 08/13/172 Date Alberto Lewis MD CC: Pranav Castaneda DO; Himanshu Garcia MD Date Dictated: 08/13/17 1058 Date Transcribed: 08/13/172251 Bell Cleaner: Signed VENOUS DUPLEX LOWER Observed: 08/09/2017 Status: F Source: [place] 9:46 PM [facility] [place] REPOSITORY [facility] Cardiovascular Services [address] [place] [address] Venous Duplex US, Unilateral 08/09/17 1330 MR#: [id number] Acct: [id number] Name: BAO LUGO Rep #: [id number] : 1935 81 From: Alberto Lewis MD Attending Dr: Himanshu Garcia MD Status: REG CLI Ordering Dr: Himanshu Garcia MD Date: 08/09/17 Location: CVS Sex: M C Admitted: RIGHT LEFT CFV is compressible, spontaneous, phasic, GSV is normal. competent and demonstrates normal CFV is compressible, spontaneous, phasic, augmentation. competent, and demonstrates normal Procedure augmentation. Exam performed in department. FV is compressible, spontaneous, phasic, The exam was diagnostic. competent and demonstrates normal A preliminary report was called and/or faxed augmentation. to Dr. Castaneda's office. POP V is compressible, spontaneous, phasic, competent and demonstrates normal augmentation. T/P Trunk is compressible. PTV is compressible. LT PerV is compressible. Gastroc V and Soleus V are dilated and noncompressible. Interpretation Summary Acute deep vein thrombosis is noted in the left gastrocnemius vein. Acute deep vein thrombosis is noted in the left soleus vein. The remainder of the left lower extremity deep venous system is patent and compressible. Valvular competence appears intact within the proximal deep venous system on the left . The left greater saphenous vein appears patent and compressible segmentally. Ordering Physician: Himanshu Garcia Referring Physician: Pranav Castaneda / Dr. Riley Performed By: Daniel Ramos, RVT 08/09/172145 Date Alberto Lewis MD CC: Pranav Castaneda DO; Himanshu Garcia MD Date Dictated: 08/09/17 1330 Date Transcribed: 08/09/172145 Bell Cleaner: Signed PROGRESS Observed: 08/09/2017 Status: COMPLETED Source: [place] 4:51 PM [facility] HNO ID: [id number] Author: Rachel Hicks (Pa) Service: (none) Author Type: Physician Reconsignment Clerk Type: Progress Notes Filed: 08/10/2017 10:50 AM Note Text: FOLLOW UP VISIT - HERNIA NAME: Bao Lugo [facility] NO.: [id number] DATE OF SERVICE: 08/06/2017 : 1935 REFERRING PHYSICIAN: Pranav Castaneda DO Bao is a patient I am following with Dr. Riley for a left inguinal hernia. Dr. Riley performed an open left inguinal hernia repair with mesh on 07/30/17. The patient currently notes no problems. His appetite has been good. He denies fever, chills or abdominal pain. He does note some mild incisional discomfort. He notes no bulges at the operative site. Patient's concerned as she has noted some swelling of patient's legs since surgery. She notes patient has had a DVT in the past. Patient denies any calf pain or other complaints and states he has not really noticed the swelling himself. Upon further questioning patient's notes that when patient had DVT in the past he had no pain, only some mild foot swelling at that time. VITALS: There were no vitals taken for this visit. On examination, the abdomen is benign. The incision is healing well without signs of infection or inflammation. There are no signs of recurrent hernia formation. +mild bilateral pitting edema, more pronounced on left lower extremity than right. Negative Vero's sign, no calf pain or palpable cords Assessment IMPRESSION: status post open left inguinal hernia repair with mesh. Leg swelling, history of DVT PLAN: If the patient notes any problems, he should contact me immediately. he may return to his regular activities as tolerated, with the exception of no lifting greater than 20 pounds for the next 7 weeks. Due to patient's history of DVT and new leg swelling reported following surgery, stat lower extremity doppler was ordered with the following results: Lower Extremity Venous Duplex Bilateral/Complete Date of service/time: 08/06/2017 2:44:46 PM Name: MR. BAO LUGO Date of : 1935 Age: 81 years Gender: M ? Clinical Indication Lower extremity swelling and post surgical procedure. ? TECHNIQUE -------- A venous duplex ultrasound examination was performed, including grayscale imaging with compression maneuvers and color Doppler and spectral Doppler examination with ?augmentation maneuvers and response to respiration of the below mentioned veins. ? FINDINGS -------- RIGHT SIDE Distal external iliac vein Doppler: normal flow. Compression: normal. Common femoral vein Doppler: normal flow. Compression: normal. Femoral vein Doppler: normal flow. Compression: normal. Popliteal vein Doppler: normal flow. Compression: normal. Posterior tibial veins Compression: normal. Peroneal veins Compression: normal. Great saphenous vein Compression: normal. Small saphenous vein Compression: normal. LEFT SIDE Distal external iliac vein Doppler: normal flow. Compression: normal. Common femoral vein Doppler: normal flow. Compression: normal. Femoral vein Doppler: normal flow. Compression: normal. Popliteal vein Doppler: normal flow. Compression: normal. Posterior tibial veins Compression: normal. Peroneal veins Compression: normal. Great saphenous vein Compression: normal. Small saphenous vein Compression: normal. Gastrocnemius vein Compression: abnormal. ? IMPRESSION Rachel Hicks's office notified at 15:00 on 08/06/2017 ? RIGHT SIDE - DEEP VEINS Negative for acute deep vein thrombosis. ? RIGHT SIDE - SUPERFICIAL VEINS Negative for superficial thrombophlebitis in the great saphenous vein and small saphenous vein. ? LEFT SIDE - DEEP VEINS Acute calf deep vein thrombosis in the gastrocnemius veins from proximal to mid. Positive for thrombus in two sets of gastroc veins which is approximately 3cm from ?the popliteal junction. ? LEFT SIDE - SUPERFICIAL VEINS Negative for superficial thrombophlebitis in the small saphenous vein and great saphenous vein. ? Technologist: Shama Valdez BA, RVT Ordering physician: Rachel Hicks (Pa) ? Interpreting physician: Laci Vasquez MD, RVT ? The patient was informed of the results. His notes patient had a relatively recent GI bleed and was treated by Dr. Beatty for this, records not available for review. Patient was sent to ED for management of acute DVT, ED notified. Dr. Garcia called from ED after evaluating patient in emergency department, was able to review records of GI bleed which was significant and anticoagulation contraindicated at this time. Based upon patient's history and location of clot, Dr. Garcia recommended monitoring with serial ultrasounds at day 3,7,14 and 28. If any propagation of clot noted on imaging would plan for admission for IVC filter placement. Patient aware of plan and has ultrasounds scheduled. Diagnoses: (M79.89) Leg swelling (primary encounter diagnosis) (Z86.718) History of blood clots (I82.402) Deep vein thrombosis (DVT) of left lower extremity, unspecified chronicity, unspecified vein (HCC) Rachel Hicks PA-C EMERGENCY DEPARTMENT Observed: 08/06/2017 Status: F Source: [place] 4:35 PM [facility] [place] REPOSITORY [facility] Medical Records Department [address] [place] [address] Emergency Department Summary 08/06/17 1629 MR#: [id number] Acct: [id number] Name: BAO LUGO Rep #: [id number] : 1935 81 From: Himanshu Garcia MD PCP: Pranav Castaneda DO Status: REG ER - ER Visit Summary Date of Service: 08/06/17 Chief Complaint: Patient venous duplex positive for gastrocnemius DVT History of Present Illness: The patient is a 81 M who recently had left inguinal hernia repair by Dr. Myers on July 30. He presents because he had an outpatient venous duplex study that reveals a gastrocnemius clot that is 3 cm in length. He was diagnosed with a GI bleed July 20. He was told by Dr. Beatty that he should not take aspirin or any anticoagulant. He denies fever, chills night sweats. He denies shortness of breath, chest discomfort or hemoptysis. He has no other complaints. Past medical history of CVA 3, diabetes, hypertension, hypercholesterolemia and GERD. He has a remote history of prostate cancer, 20 years ago. He also had stent placed for abdominal aortic aneurysm that measured 4.7 cm. Physical Examination: Signs are unremarkable. Heart rate on my exam was 90. Examination of the left lower extremity reveals pain palpation mid calf. There is no neurovascular compromise. Heart is regular without murmur, gallop or rub. Lungs clear to auscultation. Test Results: Reviewed dictated notes regarding outpatient venous duplex study Emergency Department Course and Treatment: Patient was told that a recent significant GI bleed anticoagulation is contraindicated. Since this clot is below the popliteal patient will have outpatient follow-up ultrasound on August 09, , August 20 and September 03. I did speak with the nurse practitioner who sent him to the emergency room. She was told the plan. Furthermore she was told if the clot propagates into the popliteal or femoral system he will need a Eastern filter. Treatment Plan: Serial outpatient venous duplex studies Disposition: Discharge to home with outpatient venous duplex studies Impression: DVT left gastrocnemius pain This note was generated with [employer] dictation software. It may contain incorrect words, spelling, and punctuation that were not noted in review of the chart prior to signing ED Disposition - Plan for ED Patient: Disposition: Home or Assisted Living Chief Complaint: Lower Extremity Injury Instructions: ED DVT Referrals: Pranav Castaneda DO [Primary Care Provider] - What to do if you have Problems For any increased pain, shortness of breath, bleeding, nausea or vomiting, chest pain, or any unexpected problems, contact your Primary Care Provider. Call [facility] ([phone]) or report to the closest Emergency Room. Call 911 if necessary. 08/06/17 3915 <Electronically signed by Himanshu Garcia MD> Date Himanshu Garcia MD Cosigner Signature (If Indicated): Date CC: Pranav Castaneda DO; Memo Riley MD PROGRESS Observed: 08/02/2017 Status: COMPLETED Source: [place] 9:01 PM [facility] REPOSITORY O ID: [id number] Author: Memo Riley Service: (none) Author Type: Physician Type: Progress Notes Filed: 08/02/2017 9:04 PM Note Text: OPERATIVE NOTATION FOR [facility] SURGICAL PROCEDURE. July 30, 2017 Bao Lugo 1935 [id number] male PROCEDURE: open left inguinal hernia repair with mesh - 88285-106 SURGEON: Enrique Riley M.D. FACS RENTAL REPRESENTATIVE: None DEPT: WQ PROVIDER: [id number] Riley MD POS: [id number] DIAGNOSIS: (K40.90) Left inguinal hernia (primary encounter diagnosis) ASA CLASS: 2 - mild FINDINGS: COMPLICATIONS: None PMHx - PAST MEDICAL HISTORY Diagnosis Date - Acid reflux - DM (diabetes mellitus) (HCC) - Hernia of unspecified site of abdominal cavity without mention of obstruction or gangrene - Hyperlipidemia - Hypertension - Kidney stones - PMH - PAST MEDICAL HISTORY OF Aortic anurysm 4.7. - Prostate CA (HCC) - Stroke (HCC) x3 mild, two induced during heart cath. COMORBIDITIES - None Post Op Occurrences - None Wound Classification - Clean Operative note dictated in the [facility] dictation system. Memo Riley MD OPERATIVE REPORT Observed: 07/30/2017 Status: F Source: [place] 7:52 PM [facility] [place] REPOSITORY [facility] Medical Records Department [address] [place] [address] Operative Report 07/30/17 1410 MR#: [id number] Acct: [id number] Name: BAO LUGO Rep #: [id number] : 1935 81 From: Memo Riley MD PCP: Pranav Castaneda DO Status: [facility] Location: [facility] Report of Operation Date of Procedure: 07/30/17 Pre-Operative Diagnosis: left inguinal hernia Post-Operative Diagnosis: left inguinal hernia - indirect with large preperitoneal fat Surgery/Procedure Performed:: left inguinal hernia with mesh plug - Large director sports: Arnold Ag Type of Anesthesia:: Local MAC Anesthesiologist: Mono Gonzalez - ASA2 Specimen's removed: preperitoneal fat Estimated Blood Loss (mL): 20 Fluids Replaced: 1500 Description of Procedure: The patient was brought to the operating suite. Sign in was performed verifying patient, site, procedure, position, and DVT prophylaxis with SCDs. Patient received 2 g Ancef antibiotic prophylaxis. Following induction of IV sedation, the patient s left inguinal region was prepped and draped in the usual fashion. Timeout was performed verifying patient, site, position. Local anesthetic was injected at the site of the anterior superior iliac spine for a regional block. The 50-50 mixture of lidocaine and Marcaine was then injected along the planned course of the skin incision. A linear incision was made and dissection carried down to the external oblique aponeurosis. Traversing veins ligated with 3-0 Vicryl ties and divided. Local anesthetic was then injected into the inguinal canal. A clean scalpel blade was used to open the lower canal in the direction of the fibers and a Metzenbaum scissor was used to further dissect and open the canal. Care was taken to avoid injury to the ilioinguinal nerve. Following this, the spermatic cord was surrounded at the level of the pubic tubercle and brought up in the operative field with a Carol drain. a large amount of preperitoneal fat was contained in a very thin sac which continued out the external inguinal ring and into this hemiscrotum. This was reproduced. Dissection was continued up to the internal ring clearing the cremasteric fibers. The patient was noted to have a weak floor but no true direct inguinal hernia. Dissection of the cord was undertaken which demonstrated a large amount of preperitoneal fat and what seemed to be a smaller indirect hernia. Dissection of this large amount of fat with a mushroom shaped area which was not able to be fully reduced, was sequentially dissected, divided and ligated with 3-0 Vicryl ties. At this point. This preperitoneal fat was able to reduced and was felt to be a smaller hernia defect was also reduced. There was no true sac which was opened. This again seen. The preperitoneal and did not seem to enter the abdominal cavity with digital insertion. A large mesh plug was then placed into the internal ring and secured with interrupted 0 Prolene sutures. Onlay mesh was secured using a Bard keyhole shaped mesh secured at the level of the pubic tubercle and run from Gustavo s ligament transitioning to the ilioinguinal ligament inferiorly using an 0 Prolene suture. Next an 0 Prolene suture was used to secure the mesh to the transversus arch. The tails of the mesh were placed around the spermatic cord to create a new internal ring and the tails closed with a running 0 Prolene suture. The spermatic cord and the ilioinguinal nerve returned to its anatomic position. The external oblique was closed with a running 3-0 Vicryl suture. Subcutaneous fat was closed with interrupted 3-0 Vicryl suture. Skin was closed with a running 4-0 Monocryl subcuticular sutures. Steri-Strips and bandages were applied. The patient was brought to recovery room in stable condition. Grafts/Implants Used: Bard Mesh Perfix Large - [id number] - exp 12/13/2021 - Admit VTE Documentation VTE Present on Admission: No VTE Mechan Device Prophylaxis: SCD's VTE Pharm Prophylaxis ordered?: No 07/30/171951 <Electronically signed by Memo Riley MD> Date Memo Riley MD CC: Pranav Castaneda DO; Memo Riley MD Signed DISCHARGE INSTRUCTION Observed: 07/30/2017 Status: F Source: [place] 2:18 PM [facility] [place] REPOSITORY [facility] Medical Records Department [address] [place] [address] Instructions for Home/Discharge Instructions 07/30/17 1418 MR#: [id number] Acct: [id number] Name: BAO LUGO Rep #: [id number] : 1935 81 From: Memo Riley MD PCP: Pranav Castaneda DO Status: REG UTC Discharge Diet: Light diet - advance as tolerated Discharge Activity: Return to Normal Activity, May Drive - when you are no longer taking narcotic pain medications., May Shower - with the bandage in place 1-2 days after surgery. Lifting Restrictions: 20 pounds for 8 weeks. Additional Activity Instructions:: Climbing stairs is fine, walking is encouraged. Sitting in bed may be uncomfortable. Sitting up using your lateral muscles (sitting up sideways) is usually more comfortable. Do not drive, work heavy equipment of sign legal documents for 24 hours. If your hernia repair was an ingunial repair, you may have scrotal swelling, an ice pack and/or athletic support can provide more comfort. Pain medications may cause nausea, you should typically eat light foods as you take your pain medications. Pain medications may also cause constipation. If you have difficulty with this, discuss with your doctor. Call your doctor if your incision/area has: Continuous Slow Oozing, Sudden Increased Bleeding, Increased Pain/ Swelling, Increased Redness, Foul Smelling Discharge Call your doctor if you observe: Fever of 101 or Higher Suture Line Care: Avoid Pulling/Pushing, Avoid Pinching/Bending Additional Dressing/Incision Instructions:: Leave the operative bandage on for 2-3 days. When you remove the bandage, leave the steri-strips on place until your follow up appointment or they fall off. Allergies/Adverse Reactions: Allergies iodine Allergy (Verified 07/23/17 14:12) Anaphylaxis shellfish derived Allergy (Verified 07/23/17 14:13) Anaphylaxis Medications to take at Discharge Lovastatin [Mevacor] 40 mg PO QHS 12/30/13 Cholecalciferol (Vitamin D3) [Vitamin D3] 1,000 unit PO QHS 05/28/17 Cyanocobalamin (Vitamin B-12) [Vitamin B12] 1,000 mcg PO QHS 05/28/17 Omeprazole [Prilosec] 20 mg PO QHS 05/28/17 Ascorbic Acid [Vitamin C] 500 mg PO DAILY 07/23/17 Cetirizine HCl [Zyrtec] 10 mg PO DAILY 07/23/17 Fluticasone 0.05% [Flonase Nasal [place]] 1 spray NASAL DAILY 07/23/17 Ferrous Sulfate 325 mg PO DAILY 07/30/17 Oxycodone [Oxyir] 5 mg PO Q6H PRN PRN 7 Days #14 tab 07/30/17 The following prescriptions were given: Oxycodone [Oxyir] 5 mg PO Q6H PRN PRN 7 Days #14 tab PRN Reason: Mod-Severe Pain (4-10) Primary Care Physician: Pranav Castaneda DO [Primary Care Provider] - Please Follow Up With: Memo Riley MD - [phone] When: Plan to have a follow up appointment in 7 days. Call to schedule. 07/30/17 2649 <Electronically signed by Memo Riley MD> Date Memo Riley MD CC: Pranav Castaneda CNOP Observed: 07/30/2017 Status: COMPLETED Source: [place] 12:00 AM [facility] REPOSITORY Operative Note (Enc) (GENSWS) Progress Notes: Memo Riley MD 08/02/2017 9:04 PM Signed OPERATIVE NOTATION FOR [facility] SURGICAL PROCEDURE. July 30, 2017 Bao Lugo 1935 [id number] male PROCEDURE: open left inguinal hernia repair with mesh - 87120-613 SURGEON: Enrique Riley M.D. FACS RENTAL REPRESENTATIVE: None DEPT: PROVIDER: [id number] Riley MD POS: [id number] DIAGNOSIS: (K40.90) Left inguinal hernia (primary encounter diagnosis) ASA CLASS: 2 - mild FINDINGS: COMPLICATIONS: None PMHx - PAST MEDICAL HISTORY Diagnosis Date - Acid reflux - DM (diabetes mellitus) (HCC) - Hernia of unspecified site of abdominal cavity without mention of obstruction or gangrene - Hyperlipidemia - Hypertension - Kidney stones - PMH - PAST MEDICAL HISTORY OF Aortic anurysm 4.7. - Prostate CA (HCC) - Stroke (HCC) x3 mild, two induced during heart cath. COMORBIDITIES - None Post Op Occurrences - None Wound Classification - Clean Operative note dictated in the [facility] dictation system. Memo Riley MD Encounter Status:Closed by MEMO RILEY MD on 08/02/17 MISCELLANEOUS SPECIMEN Observed: 07/30/2017 Status: F Source: [place] 12:00 [facility] Patient: BAO LUGO : 1935 (81/M) Acct Num: [id number] Phys: Memo Riley MD Unit Num: [id number] Loc: [facility] Specimen: [id number] Received: 07/30/171510 Spec Type: MISC TISSUES TISSUES: Adipose tissue COMMENT The lesion may represent a lipoma. Clinical correlation is suggested. GROSS DESCRIPTION Received in fixative is one container labeled with the patient's name and designated preperineal fat. The specimen consists of an irregular fragment of yellow fatty tissue measuring 23 x 11 x 3.5 cm. Sections reveal homogenous yellow cut surfaces without areas of cyst formation, necrosis or myxoid change. Director Of Convention Services sections are submitted in one cassette. / AM:matilda 07/30/17 TC:1 CPT: 67408 HEADER OPERATION: Hernia, inguinal wish mesh PRE-OP DIAGNOSIS: Left inguinal hernia TISSUE SUBMITTED: Preperineal fat MICROSCOPIC DESCRIPTION Slides are reviewed. MICROSCOPIC DIAGNOSIS Preperineal fat, excision: Mature adipose tissue. AM:matilda 07/31/17 Signed Devin Rony 07/31/17 <signature on file> Performed By: #### PMISC #### [facility] [address] [place], [address] 12 LEAD ELECTROCARDIOGRAM Observed: 07/25/2017 Status: F Source: BATH 2:29 PM [facility] REPOSITORY [facility] Cardiovascular Services [address] [place] [address] 12 Lead EKG 07/24/17 0737 MR#: [id number] Acct: [id number] Name: BAO LUGO Rep #: [id number] : 1935 81 From: Gareth Plascencia MD Attending Dr: Memo Riley MD Status: PRE [facility] Ordering Dr: Memo Riley MD Date: 07/24/17 Location: [facility] Sex: M C Admitted: Test Reason : PRE-OP Blood Pressure : / mmHG Vent. Rate : 077 BPM Atrial Rate : 077 BPM P-R Int : 186 ms QRS Dur : 112 ms QT Int : 402 ms P-R-T Axes : 021 -12 004 degrees QTc Int : 454 ms Sinus rhythm with Premature atrial complexes Confirmed by THAIS STEPHENS, GARETH ([id number]), health editor ALEX CARPENTER ([id number]) on 07/25/2017 2:28:57 PM Referred By: Memo Riley Confirmed By:GARETH PLASCENCIA MD 07/25/17 142 Date Gareth Plascencia MD CC: Pranav VarmaLeoneltarik ZAYAS; Memo Riley MD Signed CBC-COMPLETE BLOOD CNT Collected: 07/24/2017 Status: F Source: [place] NO DIFF 7:20 AM [facility] REPOSITORY TYPE CODE TESTS RESULT OUT OF RANGE REFERENCE UNITS LAB L100.1000 4.4-11.0 K/mm3 Normal WBC 7.0 LAB L100.1200 4.6-6.2 M/mm3 Normal RBC 4.83 LAB L100.1300 13.0-16.5 g/dl Normal HGB 13.9 LAB L100.1400 40-54 % Normal HCT 44.0 LAB L100.1500 80-94 fL Normal MCV 91.1 LAB L100.1600 27.0-32.0 pg Normal MCH 28.8 LAB L100.1700 32-36 g/gl Low MCHC 31.6 LAB L100.1810 11.6-14.6 % High RDW CV 17.8 LAB L100.1820 35.1-43.9 fl High RDW SD 59.4 LAB L100.1900 150-450 K/mm3 Normal PLT 201 LAB L100.2000 6.2-12.0 fl Normal MPV 10.3 Performed By: #### L100.0500 #### [facility] [address], [place], [address] LIVER PROFILE Collected: 07/24/2017 Status: F Source: [place] 7:20 AM [facility] REPOSITORY TYPE CODE TESTS RESULT OUT OF RANGE REFERENCE UNITS LAB L501.1500 6.4-8.2 g/dL Normal T PROT 6.7 LAB L501.1800 3.2-5.0 g/dL Normal ALB 3.5 LAB L501.1950 2.2-4.2 g/dL Normal GLOB 3.2 LAB L501.4100 15-37 U/L Normal AST 17 LAB L501.4305 45-117 U/L Normal ALK P 77 LAB L501.4405 16-61 U/L Normal ALT 20 Result Comment: Please note revised ALT reference range effective 2017. LAB L501.4600 0.20-1.00 mg/dL Normal T BILI 0.50 LAB L501.4700 0.00-0.30 mg/dL Normal D BILI 0.10 Performed By: #### L500.3400 #### [facility] [address] [place], [address] PROTHROMBIN TIME W/INR Collected: 07/24/2017 Status: F Source: BATH 7:20 AM [facility] REPOSITORY TYPE CODE TESTS RESULT OUT OF RANGE REFERENCE UNITS LAB L300.4150 11.7-14.9 SECONDS Normal PROTIME 13.6 LAB L300.4200 Normal INR 1.1 Performed By: #### L300.3900, L300.4310 #### [facility] [address] [place], [address] PARTIAL THROMBOPLAST Collected: 07/24/2017 Status: F Source: BATH TIME 7:20 AM [facility] REPOSITORY TYPE CODE TESTS RESULT OUT OF RANGE REFERENCE UNITS LAB L300.4310 24.1-36.2 Seconds Normal PTT 29.0 Performed By: #### L300.3900, L300.4310 #### [facility] [address] [place], [address] PROGRESS Observed: 07/21/2017 Status: COMPLETED Source: [place] 9:08 AM [facility] REPOSITORY HNO ID: [id number] Author: Memo Riley Service: (none) Author Type: Physician Type: Progress Notes Filed: 07/21/2017 9:15 AM Note Text: HISTORY AND PHYSICAL Bao Lugo 1935 REFERRING PHYSICIAN: Self CHIEF COMPLAINT: Consult (Consult Hernia) - Left inguinal hernia HPI: Bao is a 81 year old male with a complaint of a bulge and discomfort in his left inguinal region. The patient notes discomfort in this area with lifting, coughing and moving. The symptoms have increased, over the past few years. The patient notes no symptoms of bowel obstruction and denies nausea or vomiting. He had been seen in the past by Dr. Valadez for consideration of left inguinal hernia repair in 2009 The patient was requesting a laparoscopic repair. The patient undergone a previous laparoscopic cholecystectomy, which was complicated by a bile duct leak. Patient also has a history of prostate cancer. He has had an endovascular repair of an abdominal aortic aneurysm in 2011 He was admitted to [facility] in February 2017 with syncopal issues. He is currently referred to Dr. Crow at [facility] for evaluation and workup of these syncopal type issues. His office visit is scheduled for August 15. Bao presents for evaluation and treatment. PAST MEDICAL HISTORY Diagnosis Date - Acid reflux - DM (diabetes mellitus) (HCC) - Hernia of unspecified site of abdominal cavity without mention of obstruction or gangrene - Hyperlipidemia - Hypertension - Kidney stones - PMH - PAST MEDICAL HISTORY OF Aortic anurysm 4.7. - Prostate CA (HCC) - Stroke (HCC) x3 mild, two induced during heart cath. PAST SURGICAL HISTORY Procedure Laterality Date - LAPAROSCOPIC CHOLEYCYSTECTOMY Cholecystectomy, lap (5 years ago) - PAST SURGICAL HISTORY OF AAA stent - REPAIR ING HERNIA,5+Y/O,REDUCIBL Hernia repair, inguinal(12 years ago) Current Outpatient Prescriptions: ferrous sulfate 325 mg (65 mg iron) tablet omeprazole (PRILOSEC) 20 mg capsule cyanocobalamin (VITAMIN B-12) 1,000 mcg tab Take 1,000 mcg by mouth once daily. ascorbic acid, vitamin C, (VITAMIN C) 500 mg tablet Take 500 mg by mouth once daily. cholecalciferol (VITAMIN D) 1,000 unit tab tablet Take 1,000 Units by mouth once daily. fluticasone (FLONASE) 50 mcg/actuation nasal spray Use 1 [place] in each nostril once daily. Lovastatin 40 mg ORAL tablet Take 40 mg by mouth every morning. VITAMIN E, DL,TOCOPHERYL ACET, (VITAMIN E, DL, ACETATE,) 1,000 unit cap Take 1,000 Units by mouth every evening. cetirizine HCl 10 mg chewable tablet Take 10 mg by mouth once daily. No current facility-administered medications for this visit. ALLERGIES: Iodine [Contrast Dye]; Shellfish Derived PERSONAL HISTORY: Social History Marital status: Spouse name: Years of education: Number of children: Social History Main Topics Smoking status: Former Smoker Packs/day: 1.50 Years: 40.00 Types: Cigarettes Quit date: 06/18/1997 Smokeless status: Never Used Alcohol use: No Drug use: No Sexual activity: No FAMILY HISTORY: FAMILY HISTORY Problem Relation Age of Onset - Colon Cancer Father polyps - AAA [OTHER] Father - Cancer Maternal Grandmother unknown - Other [OTHER] Daughter HICUM REVIEW OF SYMPTOMS: The review of systems data was entered by the nurse and reviewed by me Nursing Notes: Brandon Willingham LPN 07/19/2017 3:14 PM Signed REVIEW OF SYSTEMS: General: The patient NOTES fatigue, denies weight loss, denies weight gain, denies feeling hot, and denies feelings of cold. Eyes: The patient denies glaucoma, denies eye injury/surgery, wears glasses or contacts. Ear/Nose/Throat: The patient denies allergies, denies hayfever, denies ear infections, and denies bloody noses. Cardiovascular: The patient denies chest pain, denies heart disease, NOTES high blood pressure,denies cardiac stent, denies prior heart attack, denies irregular heart beat, denies high cholesterol, denies poor circulation, denies heart failure, other cardiac issues, denies claudication, denies cold feet, denies peripheral arterial stent. Respiratory: The patient denies tuberculosis, denies pneumonia, denies frequent cough, denies pulmonary embolism, NOTES shortness of breath, and denies coughing up blood. Gastrointestinal: The patient denies difficulty swallowing, NOTES acid reflux, denies ulcers, denies vomiting, denies jaundice/hepatitis, NOTES gallbladder problems, NOTES black or tarry stools, NOTES hemorrhoids, denies bleeding from rectum, denies diverticulitis, denies constipation, denies diarrhea, denies loss of stool control, and NOTES hernias. Kidney/Bladder: The patient NOTES kidney stones, denies urine infections, and denies bloody urine. Skin: The patient denies a history of skin cancer, denies bleeding/changing moles, and denies a history of skin rash. Neurologic: The patient denies a history of epilepsy/convulsions, denies headaches, denies head/spinal injuries, and NOTES stroke/TIA. Psychiatric: The patient denies psychiatric medications, denies depression, and denies voices, denies substance abuse. Endocrine: The patient denies thyroid disorders, denies diabetes, and denies hormonal problems. Hematologic: The patient denies a history of bruising, denies bleeding, and denies anemia, denies blood clots. Infections: The patient NOTES a history of measles and mumps, denies rheumatic fever, and NOTES sexually transmitted diseases. Musculoskeletal: The patient NOTES back pain/injury, denies back problems, NOTES sciatica, denies knee/foot trouble, denies arthritis, or denies gout. When was patient's last Mammogram screening? N/A Last Colonoscopy: 2012 [facility] PHYSICAL EXAMINATION: General: The patient is 81 year old male, well nourished, well hydrated in no acute distress. The patient is oriented to time, place, and person. VITALS: There were no vitals taken for this visit. There is no height or weight on file to calculate BMI. HEENT: Normal cephalic, ataumatic, pupils are equally round, sclera are anicteric, mucous membranes are moist, oropharynx is clear. Neck has no masses, asymmetry or lymphadenopathy. Thyroid is unremarkable. Respiratory: Clear to auscultation and percussion. Normal respiratory excursion and pattern. Cardiac: Examination is regular rate and rhythm. Abdominal exam: Soft, nontender, with no palpable masses. No hepatosplenomegaly. A moderate reducible left inguinal hernia, no right inguinal or umbilical hernias are noted Rectal exam: exam deferred Extremities: no clubbing, cyanosis or edema. No adenopathy. Other: LABORATORY VALUES: As Noted RADIOLOGIC STUDIES: As Noted Assessment IMPRESSION: left inguinal hernia PLAN: My plan is to perform a open left inguinal hernia repair with mesh. The planned surgical procedure was discussed extensively with the patient. The risks, benefits, anticipated outcomes and possible complications were mentioned. Bao hong that all hernia repair surgery has a chance of recurrence and/or chronic post operative pain. My staff has also explained the procedure in understandable terms and the patient was given the option to take printed material concerning the planned procedure. The patient had the opportunity to ask questions concerning the planned procedure. The patient freely consents to the planned procedure. We will attempt to see if he can be evaluated by Dr. Crwo earlier this month as he would like to proceed with his hernia surgery relatively promptly so he can be active by the start of Golf season. A letter was sent to Dr. Pranav Castaneda DO indicating the above finding for this patient. Diagnoses: (K40.90) Left inguinal hernia (primary encounter diagnosis) Anticipated CPT Code: open left inguinal hernia repair with mesh - 70430-629 Anticipated Anesthetic: MAC with local Patient weight: There were no vitals taken for this visit. BMI: There is no height or weight on file to calculate BMI. 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 Memo Riley MD CBC-COMPLETE BLOOD CNT Collected: 07/20/2017 Status: F Source: BATH NO DIFF 3:48 PM [facility] REPOSITORY TYPE CODE TESTS RESULT OUT OF RANGE REFERENCE UNITS LAB L100.1000 4.4-11.0 K/mm3 Normal WBC 6.9 LAB L100.1200 4.6-6.2 M/mm3 Normal RBC 4.82 LAB L100.1300 13.0-16.5 g/dl Normal HGB 13.9 LAB L100.1400 40-54 % Normal HCT 43.8 LAB L100.1500 80-94 fL Normal MCV 90.9 LAB L100.1600 27.0-32.0 pg Normal MCH 28.8 LAB L100.1700 32-36 g/gl Low MCHC 31.7 LAB L100.1810 11.6-14.6 % High RDW CV 18.5 LAB L100.1820 35.1-43.9 fl High RDW SD 59.8 LAB L100.1900 150-450 K/mm3 Normal PLT 210 LAB L100.2000 6.2-12.0 fl Normal MPV 10.6 Performed By: #### L100.0500 #### [facility] [address] [place], [place], [address] IRON Collected: 07/20/2017 Status: F Source: [place] 3:48 PM [facility] REPOSITORY TYPE CODE TESTS RESULT OUT OF RANGE REFERENCE UNITS LAB L503.6150 65-175 ug/dL Low IRON 32 Performed By: #### L503.6150 #### [facility] [address] [place], [address] ALLERGIES ALLERGIES DATE TYPE / CODE NAME / CODE REACTION SEVERITY SOURCE 08/15/2017 Drug iodine/[id number] Anaphylaxis Unknown [place] Allergy/416 2(RXNORM) Community 325177([facility] ED CT) Repository 08/15/2017 Drug shellfish Anaphylaxis Unknown [place] Allergy/416 derived/[id number] Community 616946([place] [address] Repository 02/26/2017 DRUG SHELLFISH SHORTNESS OF [facility] INGREDI/419 DERIV[address] [place] 867756(SN Repository ED CT) 09/04/2011 DRUG CONTRAST DYE SHORTNESS OF High [facility] INGREDI/419 [address] [place] 806675([facility] Repository ED CT) ENCOUNTERS ENCOUNTERS ADMIT/DISCHARGE ACCOUNT ADMITTING ENCOUNTER LOCATION SOURCE NUMBER CLASS 07/10/2018 [id number] Ambulatory [facility] ing:LAB Repository 10/01/2017 [id number] Ambulatory [facility] Hospital ing:CVS Repository 09/03/2017 [id number] Ambulatory [facility] Hospital ing:CVS Repository 08/20/2017 [id number] Ambulatory [facility] Hospital ing:CVS Repository 08/15/2017/08/15/19 [id number] Ambulatory BMSBuilding:B [place] [address] [place] [address] Repository 08/14/2017 [id number] Ambulatory BMSBuilding:B [place] [facility] Repository 08/14/2017 [id number] Ambulatory BMSBuilding:B [place] Repository 08/13/2017 [id number] Ambulatory [facility] Hospital ing:CVS Repository 08/09/2017 [id number] Ambulatory [facility] Hospital ing:CVS Repository 08/06/2017/08/06/19 [id number] Emergency [address] ing:ED Repository 08/06/2017/08/08/19 [id number] Ambulatory [address] Repository 08/06/2017/08/10/19 [id number] Ambulatory [address] Repository 07/30/2017/07/30/19 [id number] Ambulatory [address] ing:SDC Repository 07/24/2017 [id number] Ambulatory BMSBuilding:W [facility] Repository 07/20/2017 [id number] Ambulatory [facility] ing:MTLAB Repository 07/19/2017/07/19/19 [id number] Ambulatory [address] Repository PAYERS PAYERS ENCOUNTER GUARANTOR PAYER SUBSCRIBER SOURCE 07/10/2018 BAO Hernandez Primary BAO Fields [id number] W Insurance:PRABHA HERSHEYDOB: [id number] Number: Repository manny BRODY [id number]: (330) Date:0504-13-32SO [phone] ([place]) [address], [place] [address]XI: 07/10/2018 Secondary NOT GIVENUNK [place] Insurance:SELF PAY [facility] Number: Effective Repository Date:2018-07-10 10/01/2017 BAO Hernandez Primary BAO Fields [id number] W Insurance:PRABHA HERSHEYDOB: [facility] [id number] [facility] Number: Repository manny BRODY [id number]: Date:6012-57-77YI [phone] [address], [place] ([place]) [address]RF: 10/01/2017 Secondary NOT GIVENUNK [place] Insurance:SELF PAY [facility] Number: Effective Repository Date:2017-09-13 09/03/2017 BAO Hernandez Primary BAO Fields [id number] W Insurance:PRABHA HERSYDOB: [facility] [id number] [facility] Number: Repository RDWELZBIETA [place] [id number]: Date:0123-85-68FD [phone] [address], [place] ([place]) [address]GA: 09/03/2017 Secondary NOT GIVENUNK [place] Insurance:SELF PAY [facility] Number: Effective Repository Date:2017-08-09 08/20/2017 BAO Hernandez Primary BAO [id number] W Insurance:[facility]HA [facility] [id number] Eye Institute Number: Repository [place] [id number]: Date:2259-72-16RT [phone] [address], [place] ([place]) [address]WB: 08/20/2017 Secondary NOT GIVENUNK [place] Insurance:SELF PAY [facility] Number: Effective Repository Date:2017-08-09 08/15/2017 BAO [id number] W Insurance:PRABHA [facility] [id number] Eye Institute Number: Repository RDWELZBIETA sc [id number]: Date:2302-11-41ZA [phone] [address], [place] ([place]) [phone]: 08/15/2017 Secondary NOT GIVENUNK [place] Insurance:SELF PAY [facility] Number: Effective Repository Date:2017-07-19 08/14/2017 Bao Henrandez Primary Bao Fields [id number] W Insurance:PRABHA HersyDOB: [facility] [id number] Eye Institute Number: Repository RDWOORUDDY sc [id number]: Date:3852-85-19UC [phone] [address], [place] ([place]) [address]FS: 08/14/2017 Secondary NOT GIVENUNK [place] Insurance:SELF PAY [facility] Number: Effective Repository Date:2017-08-14 08/14/2017 Bao Hernandez Primary Bao [id number] Insurance:PRABHA HersyDOB: [facility] [id number] Eye Institute Number: Repository RDDIAMOND [place] [id number]: Date:5954-42-10ZY [phone] [address], [place] ([place]) [address]HE: 08/14/2017 Secondary NOT GIVENUNK [place] Insurance:SELF PAY [facility] Number: Effective Repository Date:2017-08-14 08/13/2017 Bao Hernandez Primary Bao Fields [id number] W Insurance:PRABHA HersyDOB: [facility] [id number] Eye Institute Number: Repository RDDIAMOND [place] [id number]: Date:9249-44-80DD [phone] [address], [place] () [address]XK: 08/13/2017 Secondary NOT GIVENUNK [place] Insurance:SELF PAY [facility] Number: Effective Repository Date:2017-08-09 08/09/2017 Bao Hernandez Primary Bao Fields [id number] W Insurance:PRABHA HersyDOB: [facility] [id number] Eye Institute Number: Repository RADHAWELZBIETA sc [id number]: Date:4325-08-94WR [phone] [address], [place] ([place]) [address]RS: 08/09/2017 Secondary NOT GIVENUNK [place] Insurance:SELF PAY [facility] Number: Effective Repository Date:2017-08-07 08/06/2017 Bao Hernandez Primary Bao [id number] [address] Insurance:PRABHA HersheyDOB: [facility] [id number] Eye Institute Number: Repository RDDIAM[place] [id number]: Date:5989-75-94FG [phone] [address], [place] ([place]) [address]XE: 08/06/2017 Secondary NOT GIVENUNK [place] Insurance:SELF PAY [facility] Number: Effective Repository Date:2017-08-06 07/30/2017 Bao Hernandez Primary Bao [id number] W Insurance:PRABHA HersyDOB: [facility] [id number] Eye Institute Number: Repository [place] [id number]: Date:0150-30-70XF [phone] [address], [place] ([place]) [address]OJ: 07/30/2017 Secondary NOT GIVENUNK [place] Insurance:SELF PAY [facility] Number: Effective Repository Date:2017-07-19 07/24/2017 BAO Hernandez Primary BAO Fields [id number] W Insurance:PRABHA HERSHEYDOB: [facility] [id number] Eye Institute Number: Repository manny BRODY [id number]: Date:6293-40-33DX [phone] [address], [place] ([place]) [address]OR: 07/24/2017 Secondary NOT GIVENUNK [place] Insurance:SELF PAY [facility] Number: Effective Repository Date:2017-07-24 07/20/2017 Bao L Primary Bao Fields [id number] W Insurance:PRABHA HersheyDOB: [facility] [id number] Eye Institute Number: Repository [place] [id number]: Date:1450-61-15QM [phone] [address], [place] ([place]) [address]DK: 07/20/2017 Secondary NOT GIVENUNK [place] Insurance:SELF PAY [facility] Number: Effective Repository Date:2017-07-20
== END ==
PROVIDERS: Family Provider Family Medicine; PCP Family Medicine; Referring Provider Family Medicine; Visit Provider Family Medicine
DX: I10 Essential (primary) hypertension (principal); D50.9 Iron deficiency anemia, unspecified; R30.0 Dysuria; E78.5 Hyperlipidemia, unspecified
CPT/HCPCS: 36415; 80053; 80061; 81001; 82728; 83540; 85025; 87086; 87088

== ENCOUNTER → 2018-07-26 07:52 | Outpatient (CLI) | payer MEDICARE, SELFPAY ==
--- NOTE | 2018-07-26 07:58 | CDU_ITS ---
Reason For Study: Bruit Rt. Velocities/BP Lt. Velocities/BP Prox CCA 86.7/21.0 cm/sec. Prox CCA 86.8/15.8 cm/sec. Mid CCA 104.0/21.1 cm/sec. Mid CCA 75.6/18.8 cm/sec. Dist CCA 75.0/18.2 cm/sec. Dist CCA 63.3/17.0 cm/sec. Prox ICA 47.5/17.6 cm/sec. Prox ICA 52.8/19.9 cm/sec. Mid ICA 65.7/24.6 cm/sec. Mid ICA 50.9/19.9 cm/sec. Dist ICA 51.7/18.6 cm/sec. Dist ICA 47.9/16.2 cm/sec. Rt. ICA/CCA = .63. Lt. ICA/CCA = .70. Prox ECA 93.2/18.8 cm/sec. Prox ECA 62.7/12.3 cm/sec. Rt. Vert. 42.8/14.1 cm/sec. Lt. Vert. 42.8/13.5 cm/sec. Right Extracranial There is intimal thickening but no significant atherosclerotic plaque noted in the right common carotid artery. There is heterogeneous, irregular atherosclerotic plaque noted in the right internal carotid artery. There is heterogeneous, irregular atherosclerotic plaque noted in the right external carotid artery. Antegrade flow is noted in the right vertebral artery. Left Extracranial There is intimal thickening but no significant atherosclerotic plaque noted in the left common carotid artery. There is heterogeneous, irregular atherosclerotic plaque noted in the left internal carotid artery. There is no significant atherosclerotic plaque noted in the left external carotid artery. Antegrade flow is noted in the left vertebral artery. Procedure Carotid Duplex [id number]. Exam performed in department. Interpretation Summary Mild (<50%) stenosis right extracranial internal carotid. Mild (<50%) stenosis left extracranial internal carotid. Flow within the vertebral arteries is antegrade bilaterally. Ordering Physician: Pranav Castaneda Referring Physician: Pranav Castaneda Performed By: Angi Esquivel RVT
== END ==
PROVIDERS: Family Provider Family Medicine; PCP Family Medicine; Referring Provider Family Medicine; Visit Provider Family Medicine
DX: R42 Dizziness and giddiness (principal); I10 Essential (primary) hypertension; E78.5 Hyperlipidemia, unspecified; R09.89 Other specified symptoms and signs involving the circulatory and respiratory systems
CPT/HCPCS: 93880

== ENCOUNTER → 2019-07-29 08:09 | Outpatient (CLI) | payer MEDICARE, SELFPAY ==
[2019-07-29 13:04] LABS: Absolute Lymphocyte Count 2.08 X10^3/uL (0.83-4.51); Absolute Neutrophil Count 4.1 X10^3/uL (2.0-7.7); Basophil# 0.05 X10^3/uL; Basophil% 0.7 % (0-1); Eosinophil# 0.24 X10^3/uL; Eosinophils% 3.4 % (0-5); Hematocrit 43.8 % (40-54); Hemoglobin 13.8 g/dL (13.0-16.5); Lymphocyte # 2.08 X10^3/ul (4.0); Lymphocyte % 29.6 % (19-41); Mean Corp Hgb Conc 31.5 g/dL (32-36); Mean Corpuscular Hgb 30.9 pg (27.0-32.0); Mean Corpuscular Volume 98.2 fL (80-94); Mean Platelet Vol. 10.4 fl (6.2-12.0); Monocyte# 0.55 X10^3/uL; Monocyte% 7.8 % (0-10); NRBC Flagged by Analyzer 0 % (0-5); Neutrophil # 4.07 X10^3/uL (2.7-7.7); Neutrophil % 57.9 % (47-70); Platelet Count 287 K/mm3 (150-450); RBC Distribution Width CV 13.5 % (11.6-14.6); RBC Distribution Width SD 47.8 fl (35.1-43.9); Red Blood Count 4.46 M/mm3 (4.6-6.2)
[2019-07-29 13:37] LABS: ALB/GLOB Ratio 0.9 RATIO (0.9-2.4); AST(SGOT) 21 U/L (15-37); Alanine Aminotransfer ALT/SGPT 19 U/L (16-61); Albumin, Serum 3.3 g/dL (3.2-5.0); Alkaline Phosphatase 74 U/L (45-117); Anion Gap 6 (5-15); BUN 23 mg/dL (7-18); BUN/Creat Ratio 23.2 RATIO (10-20); Calcium,Total 9.1 mg/dL (8.5-10.1); Chloride 111 mmol/L (98-107); Cholesterol 146 mg/dL (200); Creatinine, Serum 0.99 mg/dL (0.70-1.30); EST Glomerular Filtration Rate 77 mL/min (>60); Est Glom Filt Rate - Afr Amer 93 mL/min (>60); Ferritin 59 ng/mL (26-388); Globulin 3.8 g/dL (2.2-4.2); Glucose 75 mg/dL (74-106); High Density Lipoprotein 47 mg/dL; Iron 111 ug/dL (65-175); Potassium 4.5 mmol/L (3.5-5.1); Protein, Total 7.1 g/dL (6.4-8.2); Sodium Level 141 mmol/L (136-145); Triglycerides 120 mg/dL; Very Low Density Lipoprotein 24 mg/dL (5-40)
== END ==
LOC: LAB.FUTURE 08:09 → BFHLAB 08:50
PROVIDERS: PCP Family Medicine; Visit Provider Family Medicine
DX: I10 Essential (primary) hypertension (principal); E78.5 Hyperlipidemia, unspecified; D50.9 Iron deficiency anemia, unspecified
CPT/HCPCS: 36415; 80053; 80061; 82728; 83540; 85025

== ENCOUNTER → 2019-08-19 14:04 | Outpatient (CLI) | payer MEDICARE, SELFPAY ==
--- NOTE | 2019-08-19 | TISS_PTH ---
PATIENT: BAO LUGO LOC: [facility] U#:[id number] AGE/SX: 89/M ROOM: RE08/19/[address]: Dr. Pranav Castaneda DO : 1935 BED: DIS: SPEC #: [id number] RECD: 08/19/19 17:18 STATUS: CARLITO KAYLEIGH #: [id number] JANEE: 08/19/19 00:[address]: Pranav Castaneda DEPT: SURGICAL PATHOLOGY RECD BY: Tracey Patel Tissues: Skin of upper extremity and shoulder Procedures: Surgery Specimen Level IV HEADER OPERATION: Punch biopsy left shoulder PRE-OP DIAGNOSIS: Rule out melanoma, ? varicocele TISSUE SUBMITTED: 4 mm punch biopsy left upper arm MICROSCOPIC DIAGNOSIS Left upper arm, punch biopsy: Consistent with malignant melanoma in situ. See comment. CHANDLER:matilda 08/21/19 COMMENT Invasive melanoma is not seen in the submitted specimen. Excision of the lesion is suggested for definite diagnosis of invasive malignant melanoma. Dermal melanophages are also noted. Immunohistochemistry ([id number]) supports the above diagnosis. MICROSCOPIC DESCRIPTION Slides are reviewed. GROSS DESCRIPTION Received is one container labeled with the patient's name and not further designated. The specimen consists of a punch biopsy of valle-brown skin measuring 0.4 cm in diameter and 0.2 cm in length. The entire specimen is submitted in one cassette. / SJ:matilda 08/19/29 TC:0 CPT: 28160 ADDENDUM ADDENDUM ADDENDUM ADDENDUM ADDENDUM ADDENDUM 09/15/2019 10:01 ADDENDUM 09/15/2019 10:01 ADDENDUM 09/15/2019 10:01 ADDENDUM 09/15/2019 10:01 ADDENDUM 09/15/2019 10:01 Left upper arm punch biopsy: Malignant melanoma in situ. The specimen was sent to [facility] for expert opinion and reviewed by Dr. Grayson and [place] diagnosis is rendered. The complete report is viewable in patient's EMR.
--- NOTE | 2019-08-19 | IMM_PTH ---
PATIENT: BAO LUGO LOC: [facility] U#:[id number] AGE/SX: 89/M ROOM: RE08/19/[address]: Dr. Pranav Castaneda DO : 1935 BED: DIS: SPEC #: [id number] RECD: 08/21/19 12:31 STATUS: CARLITO REZheng #: [id number] JANEE: 08/19/19 00:[address]: Pranav Castaneda DEPT: IMMUNOHISTOCHEMISTRY RECD BY: Brooke Swift Tissues: Skin of upper extremity and shoulder Procedures: CK8 (add) MART1 (add) Pankeratin (add) Vimentin (initial) S-100 (add) PHYSICIAN & INSTITUTION [place] [id number] SPECIMEN INFORMATION: Tissue Source: Left upper arm Clinical Info: Rule out melanoma, ? varicocele Specimen Number: [id number] CPT code: 28268, 66138 x4 METHODOLOGY: Deparaffinized sections of prefer/formalin-fixed tissue or PAP/DQ stained slides are incubated with monoclonal/polyclonal antibodies/oligonucleotide probes. Localization is made via biotin free immunoperoxidase method. Appropriate controls are performed and reacted as expected. Results on target cell population are indicated in the following table: RESULTS: ANTIBODY / CLONE RESULT Vimentin (V9) positive S-100 (4C4.9) positive AE1-3 (AE1/AE3/PCK26) negative CK8 ([id number]) negative MART-1 (A-103) positive These tests were developed and their performance characteristics determined by [facility]. They may not have been cleared or approved by the U.S. Food and Drug Administration. The FDA has determined that such clearance or approval is not necessary. The above immunohistochemical/dualISH markers are ordered and reviewed by the Pathologist. INTERPRETATION: Left upper arm, punch biopsy: Consistent with malignant melanoma in situ. SJ:matilda 08/21/19
== END ==
PROVIDERS: PCP Family Medicine; Visit Provider Family Medicine
DX: I86.1 Scrotal varices (principal)
CPT/HCPCS: 88305; 88341; 88342

== ENCOUNTER 2019-09-01 09:42 | Day surgery (SDC) | payer MEDICARE, SELFPAY ==
[2019-08-29 13:52] VITALS: BMI 32.1
--- NOTE | 2019-08-31 23:12 | HP.PCM_ITS ---
History and Physical Date of Admission: 09/01/19 HISTORY OF PRESENT ILLNESS 83 year old man presents with an enlarging pigmented lesion left lateral arm that was punch biopsied on 08/21/19. It showed a melanoma in situ. He also has concerns about a lesion on his right upper sternum by neck and right arm because they are discolored. He denies fever. He denies trauma. He denies recent infection. He denies any bleeding. He has a history of prostate cancer that was treated with radiation therapy 20 years ago. He presents at this time for further evaluation and treatment. 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 CVA (cerebral vascular accident) Deep vein thrombosis (DVT) of left lower extremity GI bleed Nonrheumatic mitral (valve) insufficiency Non-rheumatic tricuspid valve insufficiency Hyperlipidemia Hypertension Back problem Bone fracture Diabetes Hepatitis Hives Kidney stones Dizziness GERD (gastroesophageal reflux disease) Obesity Prostate CA Right nephrolithiasis PAST SURGICAL HISTORY lithotripsy cholecystectomy left inguinal hernia repair AAA (abdominal aortic aneurysm) repair ALLERGIES iodine shellfish MEDICATIONS Lovastatin [Mevacor] Cholecalciferol (Vitamin D3) [Vitamin D3] Cyanocobalamin (Vitamin B-12) [Vitamin B12] Omeprazole [Prilosec] Ascorbic Acid [Vitamin C] Cetirizine HCl [Zyrtec] Fluticasone 0.05% [Flonase Nasal [place]] Ferrous Sulfate ramipril FAMILY HISTORY Mother - CAD (coronary artery disease), Arthritis Father - Colon cancer SOCIAL HISTORY Smoking Status: Former smoker alcohol intake: never substance use type: does not use REVIEW OF SYSTEMS General - Denies fever, fatigue, and weight loss. Eyes - Denies cataracts and glaucoma. ENT - Denies nasal congestion and sore throat. Endocrine - Denies excessive thirst and urination. Skin - Has pigmented lesion left lateral arm that was punch biopsied on 08/21/19 and it showed a melanoma in situ. He has discolored lesions right upper sternum by neck and right arm. Has family history of skin cancer. Musculoskeletal - Denies joint pain, joint stiffness, weakness of muscles and joints, and arthritis. Has back pain. Neuro - Denies headaches. Has lightheadedness. Cardiovascular - Denies chest pain, fatigue, and shortness of breath with exertion. Psych - Denies anxiety and depression. Respiratory - Denies chronic cough and shortness of breath. Gastrointestinal - Denies nausea, vomiting, diarrhea, and constipation. Hematologic - Denies abnormal bruising and bleeding. Genitourinary - Denies hematuria and urinary frequency. Has history of prostate cancer treated with radiation therapy. PHYSICAL EXAMINATION General - Alert and Oriented. HEENT - PERRL. EOMI. Throat is clear. No suspicious lesions noted. Neck - Supple and nontender. No cervical adenopathy. No suspicious lesions noted. Chest wall - On the right upper sternum by neck is a lesion that measures 6 mm. It has darkened color and is clinically consistent with a benign keratosis. Has regular borders. No ulceration. Lesion is nontender. Lungs - Clear to auscultation. Heart - Regular rate and rhythm. Abdomen - Soft and nondistended. Extremities - FROM. No axillary adenopathy. Radial pulses are palpable. On the left lateral arm is a pigmented lesion that measures 1.1 cm. Has irregular borders. There is a healing scar in the central aspect where the punch biopsy was done. No ulceration. Lesion is nontender. On the right arm is a small erythematous lesion that is consistent with a hemangioma. Measures 3 mm. Has regular borders. No ulceration. Lesion is nontender. No history of bleeding. Neuro - CN II-XII grossly intact. Psych - Normal mood and affect. ASSESSMENT 1. 1.1 cm melanoma in situ left lateral arm, punch biopsied. 2. 6 mm benign keratosis right upper sternum by neck. 3. 3 mm hemangioma right arm. 4. Family history of skin cancer. 5. Former smoker. PLAN Pathology report reviewed. The biopsy was a punch biopsy in the central aspect. Will need to proceed with a completion excision into the subcutaneous tissue in order to make sure there is not a deeper focus of melanoma present that would affect the definitive treatment. The definitive treatment involves wide excision down to the muscular fascia with a margin in all directions. A melanoma in situ needs a 5 mm margin. A thin melanoma which has a thickness less than 1 mm needs a 1 cm margin. An intermediate thickness melanoma which has a thickness between 1 and 4 mm needs a 2 cm margin. Intermediate thickness melanomas also need to address the lymph nodes with a sentinel lymph node biopsy. A thick melanoma which has a thickness greater than 4 mm needs a 2-3 cm margin. A melanoma in situ does have a propensity to spread horizontally. So peripheral margins are important. Additional excision may be necessary if there is positive margins peripherally. Can proceed with a completion excision next week which can be done on an outpat ient basis under local anesthesia and IV sedation. Will excise into the superficial subcutaneous tissue. The wound would be left open and Silver dressing applied. Will instruct the patient and family how to do the Silver dressing changes daily or every other day until the final pathology is available at which time a second procedure would be done on an outpatient basis under general anesthesia which is wide excision of the melanoma down to muscular fascia with skin flap or skin graft reconstruction. Patient was informed of the risks and complications of the procedure including alternatives to surgery. These were discussed with the patient personally. Patient voices understanding and wishes to proceed. Some of the risks and complications were included in a form from the [employer] [place] [employer]. After treatment of the melanoma, he will need TBSE every 3-6 months. He states his PCP may do the TBSE. Once a year he will need a CXR as well as lab work with LFT's which includes LDH and fractionation of Alkaline Phosphatase.
[2019-09-01] VITALS (7 sets, daily range): BP systolic 124–144; BP diastolic 74–99; PULSE 68–95; RESP 16–18; TEMP 36.7–36.9; O2SAT 96–100; BMI 31.8
--- NOTE | 2019-09-01 | IMM_PTH ---
PATIENT: BAO LUGO LOC: [facility] [place] U#:[id number] AGE/SX: 83/M ROOM: RE09/01/[address]: Dr. Elmo Nava MD : 1935 BED: DIS: 09/01/2019 SPEC #: [id number] RECD: 09/02/19 10:36 STATUS: CARLITO REQ #: [id number] JANEE: 09/01/19 00:[address]: Elmo Nava DEPT: IMMUNOHISTOCHEMISTRY RECD BY: Brooke Swift ENTERED: 09/02/19 10:37 SP TYPE: IMMUNO OTHR DR: Dr. Pranav Castaneda DO Tissues: Skin of arm Procedures: [place]-1 (initial) S-100 (add) PHYSICIAN & [place] [id number] SPECIMEN INFORMATION: Tissue Source: Melanoma in situ left lateral arm Clinical Info: Melanoma in situ left lateral arm Specimen Number: [id number] CPT code: 26189, 16177 METHODOLOGY: Deparaffinized sections of prefer/formalin-fixed tissue or PAP/DQ stained slides are incubated with monoclonal/polyclonal antibodies/oligonucleotide probes. Localization is made via biotin free immunoperoxidase method. Appropriate controls are performed and reacted as expected. Results on target cell population are indicated in the following table: RESULTS: ANTIBODY / CLONE RESULT S-100 (4C4.9) positive MART-1 (A-103) positive These tests were developed and their performance characteristics determined by [facility]. They may not have been cleared or approved by the U.S. Food and Drug Administration. The FDA has determined that such clearance or approval is not necessary. The above immunohistochemical/dualISH markers are ordered and reviewed by the Pathologist. INTERPRETATION: Melanoma in situ left lateral arm, excision: Invasive malignant melanoma. SJ:matilda 09/15/19 This case is sent to [facility] for expert opinion and reviewed by Dr. Grayson and above diagnosis is rendered. Case has been reviewed in consultation with Dr. Uribe who concurs with the above diagnosis. IDC:AM
--- NOTE | 2019-09-01 | LES_PTH ---
PATIENT: BAO LUGO LOC: [facility] [place] U#:[id number] AGE/SX: 83/M ROOM: RE09/01/[address]: Dr. Elmo Nava MD : 1935 BED: DIS: 09/01/2019 SPEC #: [id number] RECD: 09/01/19 13:16 STATUS: CARLITO KAYLEIGH #: [id number] JANEE: 09/01/19 00:[address]: Elmo Nava DEPT: SURGICAL PATHOLOGY RECD BY: Zeeshan Martínez ENTERED: 09/01/19 13:17 SP TYPE: Lesion OTHR DR: Dr. Pranav Castaneda, DO Tissues: Skin of arm Procedures: Surgery Specimen Level IV HEADER OPERATION: Completion excision melanoma in situ, lateral arm PRE-OP DIAGNOSIS: Melanoma in situ left lateral arm TISSUE SUBMITTED: Melanoma in situ left lateral arm MICROSCOPIC DIAGNOSIS Left lateral arm, excisional biopsy: Invasive malignant melanoma. See cancer summary below. See comment. Histologic Type: Superficial spreading type Level of Invasion: Jamey level III Tumor Thickness: 1.0 mm Mitotic Rate: No mitoses identified Ulceration: Not identified Regression: Not identified Tumor Infiltrating Lymphocytes: Present, non-brisk Lymphovascular Invasion: Not identified Perineural Invasion: Not Identified Microsatellitosis: Not identified Peripheral Margin: Negative Deep Margin (base of specimen): Negative Primary Tumor / Pathologic Stage (Pt): Pt1a (1.0 mm or less, no ulceration) CHANDLER:matilda 09/15/19 COMMENT Immunohistochemistry ([id number]) supports the above diagnosis. The specimen was sent to [facility] for expert opinion and reviewed by Dr. Grayson and above diagnosis is rendered. SOX-10, Melan-A immunostains and multiple level sections have been examined. The provided MART-1 and S100 stains are reviewed. The complete report is viewable in patient's EMR. Please make reference to previous specimen ([id number]) left upper arm, punch biopsy with diagnosis of consistent with malignant melanoma in situ. Case has been reviewed in consultation with Dr. Uribe who concurs with the above diagnosis. IDC:AM MICROSCOPIC DESCRIPTION Slides are reviewed. GROSS DESCRIPTION Received in fixative is one container labeled with the patient's name and designated melanoma in situ left arm, suture at 12 o'clock. The specimen consists of an ovoid piece of valle-white skin with underlying tissue measuring 1.5 x 1.1 cm and up to 0.4 cm in thickness. The specimen is inked as follows: 12 to 3 o'clock - black, 3 to 6 o'clock - blue, 6 to 9 o'clock - green and 9 to 12 o'clock - yellow. The specimen is serially sectioned and submitted entirely in one cassette. / SJ:matilda 09/01/19 TC:0 CPT: 09191
[2019-09-01] MEDS: Lactated Ringers 1,000 ML 100 ML IV (10:43)
[2019-09-01] MEDS: Cefazolin 2 GM in 0.9% Normal Saline 100 ML IV (11:32)
--- NOTE | 2019-09-01 11:49 | OP.PCM_ITS ---
Report of Operation Date of Procedure: 09/01/19 Pre-Operative Diagnosis: 1. 1.1 cm melanoma in situ left lateral arm, punch biopsied. 2. Family history of skin cancer. 3. Former smoker. Post-Operative Diagnosis: Same. Surgery/Procedure Performed:: Completion excision 1.1 cm melanoma in situ left lateral arm. Description of Surgical Findings:: 83 year old man presents with an enlarging pigmented lesion left lateral arm that was punch biopsied on 08/21/19. It showed a melanoma in situ. He also has concerns about a lesion on his right upper sternum by neck and right arm because they are discolored. He denies fever. He denies trauma. He denies recent infection. He denies any bleeding. He has a history of prostate cancer that was treated with radiation therapy 20 years ago. Patient was informed of the risks and complications of the procedure including alternatives to surgery. These were discussed with the patient personally. Patient voices understanding and wishes to proceed. Some of the risks and complications were included in a form from the [place] [employer]. Size of defect left lateral arm - 1.5 x 1.9 x 0.4 cm. thermal cutter helper: None Type of Anesthesia:: Local MAC - xylocaine with epinephrine and IV sedation. Specimen's removed: Melanoma in situ left lateral arm to Pathology. Drains: None. Estimated Blood Loss (mL): 2 ml. Description of Procedure: Patient was taken to OR in supine position and was given IV sedation. His left arm was prepped and draped in the usual fashion. SCD's were placed for DVT prophylaxis. Perioperative antibiotics were given intravenously. The melanoma in situ lesion on the left lateral arm was infiltrated with xylocaine and epinephrine. After waiting 5 minutes for the anesthetic to take effect, the melanoma in situ lesion left lateral arm was excised in a circular fashion into the superficial subcutaneous tissue for a completion excision to establish a diagnosis. The lesion was excised with a 2 mm margin in all directions thus making it a 1.5 cm excision. A suture was marked at 12 oclock position for pathology orientation. The lesion was sent to Pathology for analysis to rule out any residual melanoma. Hemostasis was obtained with electrocautery. The size of the defect after completion excision of the melanoma in situ was 1.5 x 1.9 x 0.4 cm. The wound was then packed with Silver dressing followed by a 4-0 Nylon tie over stent suture dressing followed by 4x4 gauze and a compression keyana wrap. Patient tolerated the procedure well and was sent to PACU in satisfactory condition. Patient will be sent home on antibiotics and pain medication. He will keep his right arm elevated during the initial postoperative period. Patient will followup in a couple of days for removal of the Silver dressings and a wound check and for discussion of the pathology report, if available. Once the pathology report is available, will then need definitive wide excision of the melanoma in situ lesion with a margin down to the muscular fascia followed by skin graft or skin flap reconstruction. Grafts/Implants Used: None. - Complications None. - Admit VTE Documentation VTE Present on Admission: No VTE Mechan Device Prophylaxis: SCD's VTE Pharm Prophylaxis ordered?: No Surgery Charges CPT - 27186 ICD-10 - D03.62, Z80.8, Z87.891
--- NOTE | 2019-09-01 11:59 | DCINST_ITS ---
You will use the following diet at home:: No restrictions, Other - encourage nutritional supplementation with protein to help the healing process. Discharge Activity: May Shower - wear plastic bag over left arm when showering., - - keep left arm elevated. no heavy lifting. May shower in (days): 1 - wear plastic bag over left arm when showering. May resume sexual activity in: No Restrictions Weight Bearing Status: Weight bearing as tolerated Lifting Restrictions: 20 lbs. Keep extremity elevated above heart level: Left Arm Call your doctor if your incision/area has: Continuous Slow Oozing, Sudden Increased Bleeding, Increased Pain/ Swelling, Increased Redness, Foul Smelling Discharge, Swelling at the incision site Call your doctor if you observe: Fever of 101 or Higher, Coldness, Increased Pain, Shortness of breath, Chest pain, Calf discomfort, Uncontrolled pain Suture Line Care: - - after operative dressing removed in office, then daily Silver dressing changes. Change Dressing in (Days):: 2 - will remove dressing in office. Cleanse incision/area with: - - wear plastic bag over left arm when showering. Allergies/Adverse Reactions: Allergies iodine Allergy (Verified 08/29/19 13:51) Anaphylaxis shellfish derived Allergy (Verified 08/29/19 13:51) Anaphylaxis Medications to take at Discharge Lovastatin [Mevacor] 40 mg PO QHS 12/30/13 Omeprazole [Prilosec] 20 mg PO QHS 05/28/17 Cetirizine HCl [Zyrtec] 10 mg PO DAILY 07/23/17 Fluticasone 0.05% [Flonase Nasal [place]] 1 spray NASAL DAILY 07/23/17 Ferrous Sulfate 325 mg PO DAILY 07/30/17 ramipril 5 mg capsule 5 mg PO QDAY #90 cap 08/15/17 Cefadroxil [Duricef] 500 mg PO BID #10 cap 09/01/19 Lactobacillus Acidophilus/Fos [Acidophilus Probiotic Tablet] 1 ea PO BID #10 tab 09/01/19 Oxycodone HCl/Acetaminophen [Percocet 5/325] 1 tab PO Q6H PRN PRN 7 Days #28 tab 09/01/19 The following prescriptions were given: Lactobacillus Acidophilus/Fos [Acidophilus Probiotic Tablet] 1 ea PO BID #10 tab Transmission Status: Sent to [facility] Cefadroxil [Duricef] 500 mg PO BID #10 cap Transmission Status: Sent to [facility] Oxycodone HCl/Acetaminophen [Percocet 5/325] 1 tab PO Q6H PRN PRN 7 Days #28 tab PRN Reason: Pain Score 4-5/10 Transmission Status: Sent to [facility] Primary Care Physician: Pranav Castaneda DO [Primary Care Provider] - Test Results: Test results from this visit will be discussed in further detail at your follow- up appointment, if applicable. Please Follow Up With: Elmo Nava MD When: sunday09/02/19. call [phone] for appt. Proposed Discharge Date: 09/01/19
== END 2019-09-01 12:51 | disposition home or self-care (01) ==
LOC: SDC 09:46 → AC 10:03
PROVIDERS: PCP Family Medicine; Referring Provider Surgery; Visit Provider Surgery
PROC: (CPT 11602; principal; 2019-09-01 11:15)
DX: D03.62 Melanoma in situ of left upper limb, including shoulder (principal); E78.5 Hyperlipidemia, unspecified; I10 Essential (primary) hypertension; K21.9 Gastro-esophageal reflux disease without esophagitis; E11.9 Type 2 diabetes mellitus without complications; E66.9 Obesity, unspecified; Z68.31 Body mass index [BMI] 31.0-31.9, adult; Z85.46 Personal history of malignant neoplasm of prostate; Z80.8 Family history of malignant neoplasm of other organs or systems; Z87.891 Personal history of nicotine dependence; Z86.718 Personal history of other venous thrombosis and embolism; Z86.19 Personal history of other infectious and parasitic diseases; Z79.899 Other long term (current) drug therapy; Z79.51 Long term (current) use of inhaled steroids; Z92.3 Personal history of irradiation
CPT/HCPCS: 11602; 88305; 88341; 88342; J7120

== ENCOUNTER 2019-09-22 05:53 | Day surgery (SDC) | payer MEDICARE, SELFPAY ==
[2019-09-12 09:03] VITALS: BMI 31.8
[2019-09-19 09:03] VITALS: BMI 31.8
--- NOTE | 2019-09-21 18:25 | PCM.HP.BLA ---
History and Physical Date of Admission: 09/22/19 History and Physical Date of Admission: 09/01/19 HISTORY OF PRESENT ILLNESS 83 year old man presents with an enlarging pigmented lesion left lateral arm that was punch biopsied on 08/21/19. It showed a melanoma in situ. He also has concerns about a lesion on his right upper sternum by neck and right arm because they are discolored. He denies fever. He denies trauma. He denies recent infection. He denies any bleeding. He has a history of prostate cancer that was treated with radiation therapy 20 years ago. He presents at this time for further evaluation and treatment. 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 CVA (cerebral vascular accident) Deep vein thrombosis (DVT) of left lower extremity GI bleed Nonrheumatic mitral (valve) insufficiency Non-rheumatic tricuspid valve insufficiency Hyperlipidemia Hypertension Back problem Bone fracture Diabetes Hepatitis Hives Kidney stones Dizziness GERD (gastroesophageal reflux disease) Obesity Prostate CA Right nephrolithiasis PAST SURGICAL HISTORY lithotripsy cholecystectomy left inguinal hernia repair AAA (abdominal aortic aneurysm) repair ALLERGIES iodine shellfish MEDICATIONS Lovastatin [Mevacor] Cholecalciferol (Vitamin D3) [Vitamin D3] Cyanocobalamin (Vitamin B-12) [Vitamin B12] Omeprazole [Prilosec] Ascorbic Acid [Vitamin C] Cetirizine HCl [Zyrtec] Fluticasone 0.05% [Flonase Nasal [place]] Ferrous Sulfate ramipril FAMILY HISTORY Mother - CAD (coronary artery disease), Arthritis Father - Colon cancer SOCIAL HISTORY Smoking Status: Former smoker alcohol intake: never substance use type: does not use REVIEW OF SYSTEMS General - Denies fever, fatigue, and weight loss. Eyes - Denies cataracts and glaucoma. ENT - Denies nasal congestion and sore throat. Endocrine - Denies excessive thirst and urination. Skin - Has pigmented lesion left lateral arm that was punch biopsied on 08/21/19 and it showed a melanoma in situ. He has discolored lesions right upper sternum by neck and right arm. Has family history of skin cancer. Musculoskeletal - Denies joint pain, joint stiffness, weakness of muscles and joints, and arthritis. Has back pain. Neuro - Denies headaches. Has lightheadedness. Cardiovascular - Denies chest pain, fatigue, and shortness of breath with exertion. Psych - Denies anxiety and depression. Respiratory - Denies chronic cough and shortness of breath. Gastrointestinal - Denies nausea, vomiting, diarrhea, and constipation. Hematologic - Denies abnormal bruising and bleeding. Genitourinary - Denies hematuria and urinary frequency. Has history of prostate cancer treated with radiation therapy. PHYSICAL EXAMINATION General - Alert and Oriented. HEENT - PERRL. EOMI. Throat is clear. No suspicious lesions noted. Neck - Supple and nontender. No cervical adenopathy. No suspicious lesions noted. Chest wall - On the right upper sternum by neck is a lesion that measures 6 mm. It has darkened color and is clinically consistent with a benign keratosis. Has regular borders. No ulceration. Lesion is nontender. Lungs - Clear to auscultation. Heart - Regular rate and rhythm. Abdomen - Soft and nondistended. Extremities - FROM. No axillary adenopathy. Radial pulses are palpable. On the left lateral arm is a pigmented lesion that measures 1.1 cm. Has irregular borders. There is a healing scar in the central aspect where the punch biopsy was done. No ulceration. Lesion is nontender. On the right arm is a small erythematous lesion that is consistent with a hemangioma. Measures 3 mm. Has regular borders. No ulceration. Lesion is nontender. No history of bleeding. Neuro - CN II-XII grossly intact. Psych - Normal mood and affect. ASSESSMENT 1. 1.1 cm melanoma in situ left lateral arm, punch biopsied. 2. 6 mm benign keratosis right upper sternum by neck. 3. 3 mm hemangioma right arm. 4. Family history of skin cancer. 5. Former smoker. PLAN Pathology report reviewed. The biopsy was a punch biopsy in the central aspect. Will need to proceed with a completion excision into the subcutaneous tissue in order to make sure there is not a deeper focus of melanoma present that would affect the definitive treatment. The definitive treatment involves wide excision down to the muscular fascia with a margin in all directions. A melanoma in situ needs a 5 mm margin. A thin melanoma which has a thickness less than 1 mm needs a 1 cm margin. An intermediate thickness melanoma which has a thickness between 1 and 4 mm needs a 2 cm margin. Intermediate thickness melanomas also need to address the lymph nodes with a sentinel lymph node biopsy. A thick melanoma which has a thickness greater than 4 mm needs a 2-3 cm margin. A melanoma in situ does have a propensity to spread horizontally. So peripheral margins are important. Additional excision may be necessary if there is positive margins peripherally. Can proceed with a completion excision next week which can be done on an outpatient basis under local anesthesia and IV sedation. Will excise into the superficial subcutaneous tissue. The wound would be left open and Silver dressing applied. Will instruct the patient and family how to do the Silver dressing changes daily or every other day until the final pathology is available at which time a second procedure would be done on an outpatient basis under general anesthesia which is wide excision of the melanoma down to muscular fascia with skin flap or skin graft reconstruction. Patient was informed of the risks and complications of the procedure including alternatives to surgery. These were discussed with the patient personally. Patient voices understanding and wishes to proceed. Some of the risks and complications were included in a form from the [employer]. After treatment of the melanoma, he will need TBSE every 3-6 months. He states his PCP may do the TBSE. Once a year he will need a CXR as well as lab work with LFT's which includes LDH and fractionation of Alkaline Phosphatase. Essential Procedure Criteria Procedure Essential: Yes Criteria Note: On 09/02/2019 the [place] Department of Health ([facility]) Public Order signed by [facility] Director Jenny Shahid M.D., regarding the Management of Non-Essential Surgeries and Procedures for the purpose of preserving Personal Protective Equipment (PPE) and critical hospital capacity and resources within [place] went into effect as of 09/03/2019 at 5:00PM. According to the [facility] Public Order: This action will remain in full force and effect until the State of Emergency declared by the Governor no longer exists or the Director of the [facility] rescinds or modifies this Order.. This [facility] order stated all non-essential or elective surgeries and procedures that utilize PPE should be delayed unless there is undue risk to the current or future health of a patient. After reviewing the aforementioned [facility] Public Order and the patients clinical case, I have determined that the scheduled procedure meets the criteria to go forward. Risk to Patient if Procedure Delayed: Risk of metastasis or progression of staging - Has superfical spreading melanoma left lateral arm.
--- NOTE | 2019-09-22 | IMM_PTH ---
PATIENT: BAO LUGO LOC: [facility] [place] U#:[id number] AGE/SX: 83/M ROOM: RE09/22/[address]: Dr. Elmo Nava MD : 1935 BED: DIS: 09/22/2019 SPEC #: [id number] RECD: 09/25/19 10:59 STATUS: CARLITO REQ #: [id number] JANEE: 09/22/19 00:[address]: Elmo Nava DEPT: IMMUNOHISTOCHEMISTRY RECD BY: Brooke Swift ENTERED: 09/25/19 11:01 SP TYPE: IMMUNO OTHR DR: Dr. 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 Localization is made via biotin free immunoperoxidase method. Appropriate controls are performed and reacted as expected. Results on target cell population are indicated in the following table: RESULTS: ANTIBODY / CLONE RESULT Block 2 S-100 (4C4.9) negative Melan A (A103) negative Macro (HAM-56) positive Block 3 S-100 (4C4.9) negative Melan A (A103) positive, focal Macro (HAM-56) positive Block 4 S-100 (4C4.9) negative Melan A (A103) negative Macro (HAM-56) positive Block 5 S-100 (4C4.9) negative Melan A (A103) negative Macro (HAM-56) positive Block 6 S-100 4C4.9) negative Melan A (A103) negative Macro (HAM-56) positive Block 7 S-100 (4C4.9) negative Melan A (A103) negative Macro (HAM-56) positive Block 8 S-100 (4C4.9) negative Melan A (A103) negative Macro (HAM-56) positive Block 9 S-100 (4C4.9) negative Melan A (A103) negative Macro (HAM-56) positive These tests were developed and their performance characteristics determined by [facility]. They may not have been cleared or approved by the U.S. Food and Drug Administration. The FDA has determined that such clearance or approval is not necessary. The above immunohistochemical/dualISH markers are ordered and reviewed by the Pathologist. INTERPRETATION: Skin and soft tissue of left lateral arm, re-excision: Focal mild melanocytic hyperplasia. No evidence of residual melanoma. AM:matilda 09/26/19 Case has been reviewed in consultation with Dr. Power who concurs with the above diagnosis. IDC:SJ
[2019-09-22 06:11] VITALS: BP 136/79; PULSE 68; RESP 16; TEMP 36.5; O2SAT 95; BMI 31.9
[2019-09-22] MEDS: Lactated Ringers 1,000 ML 100 ML IV (06:21)
--- NOTE | 2019-09-22 07:30 | LES_PTH ---
PATIENT: BAO LUOG LOC: [facility] [place] U#:[id number] AGE/SX: 83/M ROOM: RE09/22/[address]: Dr. Elmo Nava MD : 1935 BED: DIS: 09/22/2019 SPEC #: [id number] RECD: 09/23/19 08:00 STATUS: CARLITO REZheng #: [id number] JANEE: 09/22/19 07:[address]: Elmo Nava DEPT: SURGICAL PATHOLOGY RECD BY: Zeeshan Martínez ENTERED: 09/23/19 10:19 SP TYPE: Lesion OTHR DR: Dr. 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 Cicatrix and changes of previous biopsy. Focal mild melanocytic hyperplasia. No evidence of residual melanoma. See comment. AM:matilda 09/25/19 COMMENT Immunohistochemistry ([id number]) supports the above diagnosis. Reference is made to the patient's left upper arm, punch biopsy from 08/21/19 ([id number]) in which malignant melanoma in situ was identified. Case has been reviewed in consultation with Dr. Power who concurs with the above diagnosis. IDC:SJ MICROSCOPIC DESCRIPTION Slides are reviewed. GROSS DESCRIPTION Received in fixative is one container labeled with the patient's name and designated left lateral arm melanoma, suture at 12 o'clock. The specimen consists of a piece of skin with underlying tissue measuring 4.5 x 3 cm and up to 2.2 cm in thickness. The specimen is oriented by a suture at 12 o'clock. The specimen is inked as follows: 12 to 3 o'clock - black, 3 to 6 o'clock - blue, 6 to 9 o'clock - green, 9 to 12 o'clock - yellow and deep resection margin - red. The skin surface shows a focal area of ulceration measuring 1 x 1 cm consistent with previous biopsy site. Mail Handler Sorter sections are submitted in nine cassettes as follows: 1-4 - resection margin including 12, 3, 6 and 9 o'clock margin, 5-7 - ulcerated area, entirely submitted, 8 & 9 - area adjacent to the ulcerated area. Sections are submitted after overnight fixation. / CHANDLER:matilda 09/23/19 TC:2 CPT: 61398
[2019-09-22] MEDS: Cefazolin 2 GM in 0.9% Normal Saline 100 ML IV (07:32)
[2019-09-22] MEDS: Mupirocin Ointment 22gm Tube 1 APPLIC (08:56)
[2019-09-22 09:21] VITALS: BP 136/79; BP 98/76; PULSE 77; RESP 16; TEMP 36.2; O2SAT 100
--- NOTE | 2019-09-22 09:21 | OP.PCM_ITS ---
Report of Operation Date of Procedure: 09/22/19 Pre-Operative Diagnosis: 1. 1.5 cm surgical superficial spreading melanoma wound (thickness 1 mm) left lateral arm. 2. Melanoma in situ left lateral arm. 3. Family history of skin cancer. 4. Former smoker. Post-Operative Diagnosis: Same. Surgery/Procedure Performed:: Wide excision 1.5 cm surgical superficial spreading melanoma wound (thickness 1 mm) left lateral arm with STSG reconstruction from left flank (12.25 cm2) and placement AmnioFill placental connective tissue graft (250 mg). Description of Surgical Findings:: Patient went to surgery on 09/01/19 where he underwent completion excision 1.1 cm melanoma in situ left lateral arm. Postop wound care was done with Silver dressing changes daily. Pathology report showed an additional invasive superficial spreading melanoma with a thickness on 1 mm. There was no ulceration. The mitotic index showed no mitoses seen. This is a thin melanoma as it is less than or equal to 1 mm. If there were ulceration or mitoses present, then evaluation of the lymph nodes with a sentinel node biopsy would be needed. The next stage is wide excision of the melanoma with a 1 cm margin in all directions down to the muscular fascia. Reconstruction will be with a skin flap or a skin graft. Surgery will be done under general anesthesia on an outpatient basis. Patient was informed of the risks and complications of the procedure including alternatives to surgery. These were discussed with the patient personally. Patient voices understanding and wishes to proceed. Some of the risks and complications were included in a form from the [employer] [employer]. Size of skin graft left lateral arm - 3.5 x 3.5 cm. I used AmnioFill Placental Connective Tissue Graft, (250 mg). Catalog Number - [id number]. Lot Number - [id number]. Expiration - February. sales clerk food: Radha Sheth. Type of Anesthesia:: Local MAC - xylocaine with epinephrine and IV sedation. Specimen's removed: Superficial spreading melanoma wound left lateral arm to Pathology. Drains: None. Estimated Blood Loss (mL): 20 ml. Description of Procedure: Patient was taken to OR in supine position and was given IV sedation. The melanoma wound left lateral arm and the left flank area were prepped and draped in the usual fashion. SCD's were placed for DVT prophylaxis. Perioperative antibiotics were given intravenously. The melanoma wound left lateral arm and the left flank area were infiltrated with xylocaine and epinephrine. After waiting 5 minutes for the anesthetic to take effect, an elliptical incision was made in the left flank into the subcutaneous tissue. The subcutaneous tissue and the deeper dermis were removed thus fashioning a thick split thickness skin graft. The skin graft was placed on stretch and meshed with a size 15 scalpel. The skin graft was placed in saline. Excess subcutaneous tissue was excised to aid in wound closure. Hemostasis was obtained with electrocautery. The donor incision was closed in multiple layers with 2-0 Vicryl interrupted sutures for Jasmin's fascia. The deep dermis and subcutaneous tissue was approximated with 3-0 Monocryl interrupted sutures. The skin was approximated with 3-0 V lock unidirectional barbed running subcuticular suture. This was followed by Histoacryl skin tissue adhesive and Kerlix gauze dressing. I then proceeded with a wide excision of the superficial spreading melanoma wound left lateral arm with a thickness of 1 mm. The wide excision involved a 1 cm margin in all directions down to the muscular fascia thus making it a 3.5 cm excision. A suture was placed at 12 oclock position for pathology orientation. The lesion was sent to Pathology for analysis to rule out carcinoma at the margins. The size of the defect after the wide excision was 3.5 x 3.5 cm or 12.25 cm2. Prior to placement of the skin graft, I placed AmnioFill placental connective tissue powder on the wound bed to aid in healing of the skin graft. I used 250 mg. The split thickness skin graft was placed on the wound defect and secured to the wound edges with 4-0 Chromic simple interrupted sutures. 4-0 Chromic sutures were also used for central quilting stabilization. Antibiotic ointment was applied to the skin graft followed by Xeroform gauze and cotton balls soaked in saline and secured to the skin edge with 3-0 Nylon tie over stent suture dressing. Dry gauze was applied over the stent suture dressing. A compression JUANA wrap was not done because of a rash from his previous surgery. Patient tolerated the procedure well and was sent to PACU in satisfactory condition. Patient will be sent home on antibiotics. He stated he had enough pain medication at home. He will keep his left arm elevated during the initial postoperative period. Patient will followup in the office later this week on 09/26/19, for takedown of the skin graft dressing and wound check and for discussion of the pathology report. Grafts/Implants Used: AmnioFill Placental Connective Tissue Powder. - Complications None. - Admit VTE Documentation VTE Present on Admission: No VTE Mechan Device Prophylaxis: SCD's VTE Pharm Prophylaxis ordered?: No Surgery Charges CPT - 45150-90 ICD-10 - C43.62, D03.62, S41.102A, Z80.8, Z87.891 81924 C43.62, D03.62, S41.102A, Z80.8, Z87.891
[2019-09-22 09:26] VITALS: BP 127/89; PULSE 75; RESP 16; O2SAT 100
[2019-09-22 09:31] VITALS: BP 138/99; PULSE 75; RESP 16; O2SAT 100
--- NOTE | 2019-09-22 09:33 | PCM.DC ---
You will use the following diet at home:: No restrictions Discharge Activity: May Shower - in two days. place plastic bag over left arm when showering., - - elevate left arm. no heavy lifting., May shower in (days): 2 - wear plastic bag over left arm when showering. May resume sexual activity in: No Restrictions Weight Bearing Status: Weight bearing as tolerated Lifting Restrictions: 20 lbs. Keep extremity elevated above heart level: Left Arm Call your doctor if your incision/area has: Continuous Slow Oozing, Sudden Increased Bleeding, Increased Pain/ Swelling, Increased Redness, Foul Smelling Discharge, Swelling at the incision site Call your doctor if you observe: Fever of 101 or Higher, Coldness, Increased Pain, Shortness of breath, Chest pain, Calf discomfort, Uncontrolled pain Remove Dressing in (days):: 2 - left flank incision only. Cleanse incision/area with: - - may get the left flank incision wet in the shower in two days. place plastic bag over left arm when showering. Allergies/Adverse Reactions: Allergies iodine Allergy (Verified 09/22/19 06:11) Anaphylaxis shellfish derived Allergy (Verified 09/22/19 06:11) Anaphylaxis Medications to take at Discharge Lovastatin [Mevacor] 40 mg PO QHS 12/30/13 Omeprazole [Prilosec] 20 mg PO QHS 05/28/17 Ferrous Sulfate 325 mg PO DAILY 07/30/17 ramipril 5 mg capsule 5 mg PO QDAY #90 cap 08/15/17 Cefadroxil [Duricef] 500 mg PO BID #10 cap 09/22/19 Lactobacillus Acidophilus/Fos [Acidophilus Probiotic Tablet] 1 ea PO BID #15 tab 09/22/19 The following prescriptions were given: Lactobacillus Acidophilus/Fos [Acidophilus Probiotic Tablet] 1 ea PO BID #15 tab Transmission Status: Pending to [facility]30 Cefadroxil [Duricef] 500 mg PO BID #10 cap Transmission Status: Pending to [facility] Primary Care Physician: Pranav Castaneda DO [Primary Care Provider] - Test Results: Test results from this visit will be discussed in further detail at your follow-up appointment, if applicable. Please Follow Up With: Elmo Nava MD When: sunday09/26/19. call [phone] for appt. Proposed Discharge Date: 09/22/19
[2019-09-22 09:36] VITALS: BP 136/79; BP 151/89; PULSE 76; RESP 16; TEMP 37.3; O2SAT 99
[2019-09-22 10:01] VITALS: BP 136/79
== END 2019-09-22 10:09 | disposition home or self-care (01) ==
LOC: SDC 05:53 → AC 05:54
PROVIDERS: PCP Family Medicine; Referring Provider Surgery; Visit Provider Surgery
PROC: (CPT 11604; principal; 2019-09-22 07:15)
DX: C43.62 Malignant melanoma of left upper limb, including shoulder (principal); E78.5 Hyperlipidemia, unspecified; K21.9 Gastro-esophageal reflux disease without esophagitis; I10 Essential (primary) hypertension; E66.9 Obesity, unspecified; L57.0 Actinic keratosis; Z80.8 Family history of malignant neoplasm of other organs or systems; Z87.891 Personal history of nicotine dependence; Z92.3 Personal history of irradiation; Z85.46 Personal history of malignant neoplasm of prostate; Z86.718 Personal history of other venous thrombosis and embolism; Z79.899 Other long term (current) drug therapy
CPT/HCPCS: 11604; 15100; 88305; 88341; 88342; J7120; J2405

== ENCOUNTER → 2019-10-23 14:48 | Outpatient (CLI) | payer MEDICARE, SELFPAY ==
[2019-10-23 09:02] VITALS: BMI 31.9
== END ==
PROVIDERS: PCP Family Medicine; Referring Provider Surgery; Visit Provider Surgery
DX: C43.62 Malignant melanoma of left upper limb, including shoulder (principal); T86.828 Other complications of skin graft (allograft) (autograft); Z80.8 Family history of malignant neoplasm of other organs or systems
CPT/HCPCS: 87070; 87075; 87205

== ENCOUNTER → 2019-10-30 15:54 | Outpatient (CLI) | payer MEDICARE, SELFPAY ==
[2019-10-30 09:28] VITALS: BMI 31.9
[2019-10-30 18:12] LABS: Absolute Lymphocyte Count 1.86 X10^3/uL (0.83-4.51); Absolute Neutrophil Count 4.5 X10^3/uL (2.0-7.7); Basophil# 0.04 X10^3/uL; Basophil% 0.6 % (0-1); Eosinophil# 0.22 X10^3/uL; Hematocrit 41.7 % (40-54); Hemoglobin 13.8 g/dL (13.0-16.5); Lymphocyte # 1.86 X10^3/ul (4.0); Lymphocyte % 25.7 % (19-41); Mean Corp Hgb Conc 33.1 g/dL (32-36); Mean Corpuscular Hgb 31.4 pg (27.0-32.0); Mean Platelet Vol. 10.7 fl (6.2-12.0); Monocyte# 0.62 X10^3/uL; Monocyte% 8.6 % (0-10); NRBC Flagged by Analyzer 0 % (0-5); Neutrophil # 4.49 X10^3/uL (2.7-7.7); Neutrophil % 61.8 % (47-70); Platelet Count 191 K/mm3 (150-450); RBC Distribution Width CV 14.1 % (11.6-14.6); RBC Distribution Width SD 47.6 fl (35.1-43.9); Red Blood Count 4.39 M/mm3 (4.6-6.2); White Blood Count 7.3 K/mm3 (4.4-11.0)
[2019-10-30 18:32] LABS: ALB/GLOB Ratio 1.1 RATIO (0.9-2.4); AST(SGOT) 17 U/L (15-37); Alanine Aminotransfer ALT/SGPT 24 U/L (16-61); Albumin, Serum 3.4 g/dL (3.2-5.0); Alkaline Phosphatase 71 U/L (45-117); Anion Gap 7 (5-15); BUN 24 mg/dL (7-18); BUN/Creat Ratio 24.2 RATIO (10-20); CRP < 2.90 mg/L (0.0-3.0); Calcium,Total 9.1 mg/dL (8.5-10.1); Chloride 112 mmol/L (98-107); Creatinine, Serum 0.99 mg/dL (0.70-1.30); EST Glomerular Filtration Rate 77 mL/min (>60); Est Glom Filt Rate - Afr Amer 93 mL/min (>60); Ferritin 45 ng/mL (26-388); Globulin 3.2 g/dL (2.2-4.2); Glucose 106 mg/dL (74-106); Iron 39 ug/dL (65-175); Potassium 4.2 mmol/L (3.5-5.1); Protein, Total 6.6 g/dL (6.4-8.2); Sodium Level 144 mmol/L (136-145)
== END ==
PROVIDERS: PCP Family Medicine; Visit Provider Family Medicine
DX: R53.83 Other fatigue (principal); R42 Dizziness and giddiness; D50.9 Iron deficiency anemia, unspecified
CPT/HCPCS: 36415; 80053; 82728; 83540; 85025; 86140

== ENCOUNTER → 2020-08-05 09:29 | Outpatient (CLI) | payer MEDICARE, SELFPAY ==
[2019-11-27 09:42] VITALS: BMI 31.9
[2020-08-05 12:14] LABS: Absolute Lymphocyte Count 1.83 X10^3/uL (0.83-4.51); Absolute Neutrophil Count 4.8 X10^3/uL (2.0-7.7); Basophil# 0.04 X10^3/uL; Basophil% 0.5 % (0-1); Eosinophil# 0.28 X10^3/uL; Eosinophils% 3.7 % (0-5); Hematocrit 46.3 % (40-54); Hemoglobin 14.6 g/dL (13.0-16.5); Lymphocyte # 1.83 X10^3/ul (4.0); Mean Corp Hgb Conc 31.5 g/dL (32-36); Mean Corpuscular Hgb 29.3 pg (27.0-32.0); Monocyte# 0.59 X10^3/uL; Monocyte% 7.8 % (0-10); NRBC Flagged by Analyzer 0 % (0-5); Neutrophil # 4.84 X10^3/uL (2.7-7.7); Neutrophil % 63.6 % (47-70); Platelet Count 228 K/mm3 (150-450); RBC Distribution Width CV 13.8 % (11.6-14.6); RBC Distribution Width SD 46.8 fl (35.1-43.9); Red Blood Count 4.98 M/mm3 (4.6-6.2); White Blood Count 7.6 K/mm3 (4.4-11.0)
[2020-08-05 12:41] LABS: ALB/GLOB Ratio 0.9 RATIO (0.9-2.4); AST(SGOT) 13 U/L (15-37); Alanine Aminotransfer ALT/SGPT 20 U/L (16-61); Albumin, Serum 3.5 g/dL (3.2-5.0); Alkaline Phosphatase 95 U/L (45-117); Anion Gap 3 (5-15); BUN 19 mg/dL (7-18); BUN/Creat Ratio 18.8 RATIO (10-20); Calcium,Total 9.5 mg/dL (8.5-10.1); Chloride 108 mmol/L (98-107); Cholesterol 165 mg/dL (200); Creatinine, Serum 1.01 mg/dL (0.70-1.30); EST Glomerular Filtration Rate 75 mL/min (>60); Est Glom Filt Rate - Afr Amer 91 mL/min (>60); Ferritin 52 ng/mL (26-388); Globulin 3.9 g/dL (2.2-4.2); Glucose 82 mg/dL (74-106); High Density Lipoprotein 54 mg/dL; Iron 86 ug/dL (65-175); PSA,Total - Annual Screen 1.67 ng/mL (0.00-4.00); Potassium 4.2 mmol/L (3.5-5.1); Protein, Total 7.4 g/dL (6.4-8.2); Sodium Level 142 mmol/L (136-145); Triglycerides 82 mg/dL; Very Low Density Lipoprotein 16 mg/dL (5-40)
== END ==
PROVIDERS: PCP Family Medicine; Visit Provider Family Medicine
DX: I10 Essential (primary) hypertension (principal); E78.5 Hyperlipidemia, unspecified; D50.9 Iron deficiency anemia, unspecified; Z12.5 Encounter for screening for malignant neoplasm of prostate
CPT/HCPCS: 36415; 80053; 80061; 82728; 83540; 84153; 85025; G0103

== ENCOUNTER → 2020-08-09 15:01 | Outpatient (CLI) | payer MEDICARE, SELFPAY ==
[2019-11-27 09:42] VITALS: BMI 31.9
--- NOTE | 2020-08-09 15:04 | RAD_ITS ---
STUDY: X-RAY CHEST REASON FOR EXAM: Male, 84 years old. Hx of melanoma TECHNIQUE: PA and lateral views of the chest. COMPARISON: Comparison is made with prior study dated 05/28/2017. FINDINGS: Stable elevation of the anterior aspect of the right hemidiaphragm. Hyperinflation. The lungs are clear. There is no demonstrated pleural abnormality. Normal size heart. Normal mediastinum and owen. Normal visualized pulmonary arteries. There is atherosclerotic calcification of the aortic arch with tortuosity. There is demineralization of the osseous structures. Normal visualized ribs, clavicles, and shoulders. Hiatal hernia. RAD/Chest PA and Lateral IMPRESSION: Hyperinflation. The lungs are clear. Electronically Signed: Christian Figueroa MD at 15:15 EST , Service support ,
== END ==
PROVIDERS: PCP Family Medicine; Referring Provider Family Medicine; Visit Provider Family Medicine
DX: Z85.820 Personal history of malignant melanoma of skin (principal)
CPT/HCPCS: 71046

== ENCOUNTER → 2021-03-31 08:47 | Outpatient (CLI) | payer MEDICARE, SELFPAY | PROVIDERS: PCP Family Medicine; Referring Provider Family Medicine; Visit Provider Family Medicine | DX: Z20.828 Contact with and (suspected) exposure to other viral communicable diseases (principal) | CPT/HCPCS: 87635; U0005; U0003 ==

== ENCOUNTER 2021-05-02 08:29 | Emergency (ER) | payer MEDICARE, SELFPAY ==
[2021-05-02 08:30] VITALS: BP 141/94; PULSE 86; RESP 16; TEMP 36.6; O2SAT 95; BMI 32.3
--- NOTE | 2021-05-02 08:34 | EKG12_ITS ---
Test Reason : SYNCOPE Blood Pressure : / mmHG Vent. Rate : 086 BPM Atrial Rate : 086 BPM P-R Int : 152 ms QRS Dur : 118 ms QT Int : 388 ms P-R-T Axes : 029 -28 000 degrees QTc Int : 464 ms Normal sinus rhythm Normal ECG Confirmed by THAIS STEPHENS, CHRISTINA ([id number]), assignment editor RACHEL GRAVES ([id number]) on 05/04/2021 9:44:36 AM Referred By: JEYSON Confirmed By:CHRISTINA PLASCENCIA MD
[2021-05-02 08:44] LABS: Absolute Lymphocyte Count 2.73 X10^3/uL (0.83-4.51); Absolute Neutrophil Count 6.7 X10^3/uL (2.0-7.7); Basophil# 0.07 X10^3/uL; Basophil% 0.7 % (0-1); Eosinophil# 0.28 X10^3/uL; Eosinophils% 2.6 % (0-5); Hematocrit 44.5 % (40-54); Hemoglobin 14.1 g/dL (13.0-16.5); Lymphocyte # 2.73 X10^3/ul (0.83-4.51); Lymphocyte % 25.7 % (19-41); Mean Corp Hgb Conc 31.7 g/dL (32-36); Mean Corpuscular Hgb 29.6 pg (27.0-32.0); Mean Corpuscular Volume 93.5 fL (80-94); Monocyte% 7.5 % (0-10); NRBC Flagged by Analyzer 0 % (0-5); Neutrophil # 6.67 X10^3/uL (2.7-7.7); Neutrophil % 62.9 % (47-70); Platelet Count 281 K/mm3 (150-450); RBC Distribution Width CV 13.8 % (11.6-14.6); RBC Distribution Width SD 46.9 fl (35.1-43.9); Red Blood Count 4.76 M/mm3 (4.6-6.2); White Blood Count 10.6 K/mm3 (4.4-11.0)
[2021-05-02 08:58] LABS: Anion Gap 3 (5-15); BUN 17 mg/dL (7-18); BUN/Creat Ratio 15.2 RATIO (10-20); Calcium,Total 9.1 mg/dL (8.5-10.1); Chloride 113 mmol/L (98-107); Creatinine, Serum 1.12 mg/dL (0.70-1.30); EST Glomerular Filtration Rate 66 mL/min (>60); Est Glom Filt Rate - Afr Amer 80 mL/min (>60); Estimated Creatinine Clearance 58.68 ml/min; Glucose 146 mg/dL (74-106); Potassium 3.8 mmol/L (3.5-5.1); Sodium Level 143 mmol/L (136-145)
--- NOTE | 2021-05-02 09:28 | EX.ED.DYSGE1 ---
HPI History of Present Illness Chief Complaint: Syncope Detail of Chief Complaint: Epistaxis from left nares and syncopal episode Informant: patient Onset/Context/Timing Onset: Today Context: Sudden Onset Timing: Lasts (Approximately 45 minutes) Quality: Weakness Location: Generalized Worsened by: Nothing Relieved by: Nothing Narrative Narrative: Patient presents with epistaxis and syncopal episode that began this morning. Patient states he was watching TV when he noted some bleeding going down the back of his throat. Patient got up and went to the bathroom and noted blood from his left nares. Patient states he started feeling weak. Patient called EMS. Patient states that he had a syncopal episode after the EMS arrived. Patient states he was out for approximately 1 minute. Patient admits to some lightheadedness with this. Patient denies any palpitations. Patient states his bleeding has stopped. Patient states he feels back to normal. [facility] Medical History (Updated 05/02/21 @ 12:[address] Gamaliel Martin DO) Back problem Bone fracture CVA (cerebral vascular accident) Deep vein thrombosis (DVT) of left lower extremity (~08/13/17) Diabetes Dizziness GERD (gastroesophageal reflux disease) GI bleed Hepatitis Hives Hyperlipidemia Hypertension Kidney stones Melanoma in situ of left upper arm Melanoma of left upper arm Non-rheumatic tricuspid valve insufficiency Nonrheumatic mitral (valve) insufficiency Obesity Prostate CA Right nephrolithiasis Home Medications lovastatin 40 mg PO QHS 12/30/13 [History Last Taken 09/21/19] omeprazole 20 mg PO QHS 05/28/17 [History Last Taken 09/21/19] ferrous sulfate 325 mg PO DAILY 07/30/17 [History Last Taken 09/21/19] cyanocobalamin (vitamin B-12) 1,000 mcg tablet 1,000 mcg PO DAILY 10/30/19 [History Last Taken Unknown] Allergy/AdvReac Type Severity Reaction Status Date / Time iodine Allergy Anaphylaxis Verified 11/27/19 09:41 shellfish derived Allergy Anaphylaxis Verified 11/27/19 09:41 Family History Mother CAD (coronary artery disease) Arthritis Father Colon cancer Surgical History H/O left inguinal hernia repair (~07/30/17) H/O lithotripsy (~2013) History of AAA (abdominal aortic aneurysm) repair (~2009) History of melanoma excision Hx of cholecystectomy Social History Smoking Status: Never smoker alcohol intake: never substance use type: does not use additional social history: DOES USE ASPIRIN DOES USE IBUPROFEN ROS ROS ED Constitutional Constitutional ED: Denies chills or fever(s) Eyes Eyes: Denies blurry vision or change in vision ENT ENT ED: Denies rhinorrhea or sore throat Cardiovascular Cardiovascular: Denies chest pain or palpitations Respiratory/Chest Respiratory/Chest: Denies cough or dyspnea Gastrointestinal Gastrointestinal: Denies nausea or vomiting Genitourinary Genitourinary ED: Denies dysuria or hematuria Musculoskeletal Musculoskeletal: Reports back pain; Denies neck pain Integumentary Denies abscess or rash Neurologic Neurologic: Denies headache(s) or weakness Allergic/Immunologic Allergic/Immunologic ED: Denies mouth swelling or urticaria EXAM Physical Exam Const Vital Signs: 05/02/21 08:30 05/02/21 08:43 05/02/21 10:35 Temperature 97.8 F Temperature Source Oral Pulse Rate 86 Respiratory Rate 16 Respiratory Effort Normal Non-Labored Respiratory Pattern Normal Blood Pressure 141/94 H 133/102 H Blood Pressure Mean 109 112 Pulse Ox 95 93 Oxygen Delivery Method Room Air Positive well nourished and well developed General Appearance ED: well developed HEENT Reports moist mucous membranes HEENT Narrative: There is some dried blood noted in the left nares. There is no active bleeding. Neck supple and no JVD Resp normal respiratory effort and clear to auscultation bilaterally Cardio regular rate, regular rhythm and no murmurs GI normal to inspection, nondistended, normoactive bowel sounds and non-tender Palpation: soft Extremity normal to inspection General Extremety ED: Negative for edema or tenderness General Extremity: Negative for edema Neuro oriented x3, CN's II-XII intact bilaterally and no sensory deficits noted Sensorium / Orientation: alert Motor Exam: strength 5/5 throughout Psych mental status grossly normal Skin no rashes or lesions noted MDM MDM MDM Narrative Medical decision making narrative: Patient presents with epistaxis and syncopal episode that began today. Patient had no further episodes of bleeding here in the emergency department. Patient feels better on reevaluation. EKG was obtained. On my interpretation, it showed a normal sinus rhythm with a rate of 86. MI interval, QRS interval, and QTc intervals were all normal. [place] was normal. There are no acute ST or T wave changes. CBC was within normal limits. Basic metabolic profile was normal. High-sensitivity troponin was normal. 2-hour repeat high-sensitivity troponin was normal. Patient was advised of his findings. Patient was instructed to follow-up with his primary care physician in 3 to 5 days. Patient understood and was agreeable with the plan. All questions were answered. Lab Data Attestation: I reviewed the patient's lab results. Labs: Laboratory Results - last 24 hr 05/02/21 05/02/21 05/02/21 08:33 08:33 08:33 WBC 10.6 RBC 4.76 Hgb 14.1 Hct 44.5 MCV 93.5 MCH 29.6 MCHC 31.7 L RDW Std Deviation 46.9 H RDW Coeff of Anthony 13.8 Plt Count 281 MPV 10.0 Immature Gran % (Auto) 0.600 Neut % (Auto) 62.9 Lymph % (Auto) 25.7 [place] % (Auto) 7.5 Eos % (Auto) 2.6 Baso % (Auto) 0.7 Absolute Neuts (auto) 6.7 Absolute Lymphs (auto) 2.73 Nucleated RBC % 0 Sodium 143 Potassium 3.8 Chloride 113 H Carbon Dioxide 27.0 Anion Gap 3 L BUN 17 Creatinine 1.12 Estim Creat Clear Calc 58.68 Est GFR (MDRD) Af Amer 80 Est GFR (MDRD) Non-Af 66 BUN/Creatinine Ratio 15.2 Glucose 146 H Calcium 9.1 Troponin I High Sens 11 05/02/21 10:59 WBC RBC Hgb Hct MCV MCH MCHC RDW Std Deviation RDW Coeff of Anthony Plt Count MPV Immature Gran % (Auto) Neut % (Auto) Lymph % (Auto) [place] % (Auto) Eos % (Auto) Baso % (Auto) Absolute Neuts (auto) Absolute Lymphs (auto) Nucleated RBC % Sodium Potassium Chloride Carbon Dioxide Anion Gap BUN Creatinine Estim Creat Clear Calc Est GFR (MDRD) Af Amer Est GFR (MDRD) Non-Af BUN/Creatinine Ratio Glucose Calcium Troponin I High Sens 10 EKG Initial EKG: Attestation: I personally reviewed and interpreted this EKG as follows: Interpretation: Sinus Rhythm (86) and No Acute Injury Pattern Prior EKG tracings: available for review Prior: Unchanged (07/24/2017) Discharge Plan Triage Chief Complaint: Syncope ED Provider: Gamaliel Martin Dx/Rx/DC Orders Clinical Impression: Syncope and collapse, Epistaxis Instructions: ED Epistaxis (Adult), ED Fainting, Uncertain Cause Prescriptions: No Action cyanocobalamin (vitamin B-12) [Vitamin B-12] 1,000 mcg tablet 1,000 mcg PO DAILY RF: 0 lovastatin 40 MG tablet 40 mg PO QHS RF: 0 omeprazole 20 MG capsule 20 mg PO QHS RF: 0 ferrous sulfate 325 MG tablet 325 mg PO DAILY RF: 0 Primary Care Provider: Pranav Castaneda Referrals: Pranav Castaneda DO [Primary Care Provider] - 3-5 Days Disposition Disposition: Home, Self Care
[2021-05-02 09:41] LABS: Troponin-I HS 11 pg/mL (3.0-78.0)
[2021-05-02 10:35] VITALS: BP 133/102; O2SAT 93
[2021-05-02 11:33] LABS: Troponin-I HS 10 pg/mL (3.0-78.0)
== END 2021-05-02 12:44 | disposition home or self-care (01) ==
PROVIDERS: Emergency Provider Emergency Medicine; PCP Family Medicine
DX: R55 Syncope and collapse (principal); R04.0 Epistaxis
CPT/HCPCS: 80048; 84484; 85025; 93005; 99285; J7030; A4216

== ENCOUNTER 2021-05-03 04:05 | Emergency (ER) | payer MEDICARE, SELFPAY ==
[2021-05-03 04:06] VITALS: BP 140/114; PULSE 91; RESP 14; TEMP 35.7; O2SAT 99; BMI 32.0
[2021-05-03] MEDS: Oxymetazoline 0.05% 1 SPRAY SPRAY.BTL 2 SPRAY NASAL (04:34)
[2021-05-03] MEDS: Tetracaine/Benzocaine/Butamben 1 APPLIC TOPICAL (04:35)
--- NOTE | 2021-05-03 05:00 | EDS_ITS ---
HPI History of Present Illness Chief Complaint: Nosebleed Informant: patient and EMS Onset/Context/Timing Onset: Today Current Severity: Moderate Maximum Severity: Severe Narrative Narrative: Patient presents secondary to left-sided epistaxis. Patient reportedly was seen in the ER yesterday morning after developing a nosebleed at home and having a syncopal episode after EMS arrived. He was evaluated in the emergency room and had no further nasal bleeding. Packing was not placed. Work-up was unremarkable and he was discharged to home. Patient states he felt well the rest of the day yesterday and woke this morning from sleep bleeding again. He denies recent facial trauma. He is not on anticoagulants. [facility] Medical History (Updated 05/03/21 @ 05:[address] Lesly Briscoe MD) Back problem Bone fracture CVA (cerebral vascular accident) Deep vein thrombosis (DVT) of left lower extremity (~08/13/17) Diabetes Dizziness GERD (gastroesophageal reflux disease) GI bleed Hepatitis Hives Hyperlipidemia Hypertension Kidney stones Melanoma in situ of left upper arm Melanoma of left upper arm Non-rheumatic tricuspid valve insufficiency Nonrheumatic mitral (valve) insufficiency Obesity Prostate CA Right nephrolithiasis Home Medications lovastatin 40 mg PO QHS 12/30/13 [History Last Taken 09/21/19] omeprazole 20 mg PO QHS 05/28/17 [History Last Taken 09/21/19] ferrous sulfate 325 mg PO DAILY 07/30/17 [History Last Taken 09/21/19] cyanocobalamin (vitamin B-12) 1,000 mcg tablet 1,000 mcg PO DAILY 10/30/19 [History Last Taken Unknown] cephalexin 500 mg PO BID 3 Days #6 cap 05/03/21 [Rx Last Taken Unknown] Allergy/AdvReac Type Severity Reaction Status Date / Time iodine Allergy Anaphylaxis Verified 05/03/21 04:11 shellfish derived Allergy Anaphylaxis Verified 05/03/21 04:11 Family History Mother CAD (coronary artery disease) Arthritis Father Colon cancer Surgical History H/O left inguinal hernia repair (~07/30/17) H/O lithotripsy (~2013) History of AAA (abdominal aortic aneurysm) repair (~2009) History of melanoma excision Hx of cholecystectomy Social History Smoking Status: Never smoker alcohol intake: never substance use type: does not use additional social history: DOES USE ASPIRIN DOES USE IBUPROFEN ROS ROS ED Constitutional Constitutional ED: Denies chills or fever(s) Eyes Eyes: Denies blurry vision ENT ENT ED: Reports other Details: Epistaxis left nare Cardiovascular Cardiovascular: Denies chest pain or palpitations Respiratory/Chest Respiratory/Chest: Denies cough or dyspnea Gastrointestinal Gastrointestinal: Denies abdominal pain, diarrhea, nausea or vomiting Musculoskeletal Musculoskeletal: Denies back pain or neck pain Integumentary Denies rash Neurologic Neurologic: Denies headache(s) Allergic/Immunologic Allergic/Immunologic ED: Denies urticaria EXAM Physical Exam Const Vital Signs: 05/03/21 04:06 Temperature 96.2 F L Temperature Source Oral Pulse Rate 91 Respiratory Rate 14 Blood Pressure 140/114 H Blood Pressure Mean 122 Pulse Ox 99 Oxygen Delivery Method Room Air Positive well nourished and well developed General Appearance ED: well developed HEENT Reports moist mucous membranes HEENT Narrative: Epistaxis left nare. Eyes PERRL and EOMs intact bilaterally Neck supple Chest Wall inspection of chest normal and palpation of chest normal Resp normal respiratory effort Cardio regular rate and regular rhythm GI normal to inspection, nondistended, normoactive bowel sounds and non-tender Palpation: soft Extremity normal to inspection Neuro oriented x3 Sensorium / Orientation: alert Psych mental status grossly normal Skin no rashes or lesions noted MDM MDM MDM Narrative Medical decision making narrative: Cottonball soaked in Afrin and Cetacaine placed in the left nare. After approximately 5 minutes this was removed and a 5.5 cm Rhino Rocket placed. Patient is had no further bleeding in the emergency room. He did get up and ambulate in the department without difficulty. Patient will be given Keflex twice daily to help prevent sinus infection. He is refe rred to Dr. Stephon Ramirez, on-call for ENT. Discharge Plan Triage Chief Complaint: Nosebleed ED Provider: Lesly Briscoe Dx/Rx/DC Orders Clinical Impression: Epistaxis Instructions: ED Epistaxis (Adult) Prescriptions: New cephalexin 500 mg capsule 500 mg PO BID 3 Days Qty: 6 RF: 0 No Action cyanocobalamin (vitamin B-12) [Vitamin B-12] 1,000 mcg tablet 1,000 mcg PO DAILY RF: 0 lovastatin 40 MG tablet 40 mg PO QHS RF: 0 omeprazole 20 MG capsule 20 mg PO QHS RF: 0 ferrous sulfate 325 MG tablet 325 mg PO DAILY RF: 0 Primary Care Provider: Pranav Castaneda Referrals: Stephon Ramirez MD [STAFF PHYSICIAN] - 2 Days for wound check Pranav Castaneda DO [Primary Care Provider] - Disposition Disposition: Home, Self Care
--- NOTE | 2021-05-03 05:35 | ED.RN ---
Patient ambulated down [place] and back. Tolerated well with no rebleed of the nose.
[2021-05-03] MEDS: Cephalexin 250 MG Capsule 500 MG PO (05:55)
== END 2021-05-03 06:24 | disposition home or self-care (01) ==
PROVIDERS: Emergency Provider Emergency Medicine; PCP Family Medicine
DX: R04.0 Epistaxis (principal); I10 Essential (primary) hypertension; K21.9 Gastro-esophageal reflux disease without esophagitis; E78.5 Hyperlipidemia, unspecified; Z86.718 Personal history of other venous thrombosis and embolism; Z79.899 Other long term (current) drug therapy
CPT/HCPCS: 30901; 80048; 84484; 85025; 93005; 99282; 99284; J7030; A4216

== ENCOUNTER 2021-05-03 17:54 | Emergency (ER) | payer MEDICARE, SELFPAY ==
[2021-05-03 17:55] VITALS: BP 172/106; PULSE 109; RESP 16; TEMP 36.4; O2SAT 97; BMI 32.0
--- NOTE | 2021-05-03 19:01 | EKG12_ITS ---
Test Reason : HTN Blood Pressure : / mmHG Vent. Rate : 091 BPM Atrial Rate : 091 BPM P-R Int : 174 ms QRS Dur : 114 ms QT Int : 394 ms P-R-T Axes : 002 -28 -03 degrees QTc Int : 484 ms Normal sinus rhythm Prolonged QT Abnormal ECG Confirmed by THAIS STEPHENS, CHRISTINA ([id number]), curator [employer] RACHEL GRAVES ([id number]) on 05/04/2021 1:15:35 PM Referred By: JEYSON/RU Confirmed By:CHRISTINA PLASCENCIA MD
--- NOTE | 2021-05-03 19:01 | EX.ED.DYSGE1 ---
HPI History of Present Illness Chief Complaint: Hypertension Detail of Chief Complaint: High blood pressure since yesterday Informant: patient Narrative Narrative: Patient presents to the emergency department with complaint of elevated blood pressures at home. states that he is not currently medicated for blood pressure. Patient was seen in the emergency department yesterday and then again this morning for nosebleed. Patient had a nasal packing placed the left side of the nose. Patient not anticoagulated currently. He denies any chest pain. He describes a mild shortness of breath. Patient generally feels weak but relates it to his age. He denies fever or recent illness otherwise. Patient has an appointment with his primary care physician in 3 days. states that his blood pressure was elevated during his other visits to the emergency department and she is concerned about his elevated blood pressures at home that have been in the 160s to 180s systolic to the 90s and low 100s diastolic. Prior similar symptoms: No PFSH PFSH Medical History (Updated 05/03/21 @ 22:[address] 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 Melanoma of left upper arm Non-rheumatic tricuspid valve insufficiency Nonrheumatic mitral (valve) insufficiency Obesity Prostate CA Right nephrolithiasis Home Medications lovastatin 40 mg PO QHS 12/30/13 [History Last Taken 09/21/19] omeprazole 20 mg PO QHS 05/28/17 [History Last Taken 09/21/19] ferrous sulfate 325 mg PO DAILY 07/30/17 [History Last Taken 09/21/19] cyanocobalamin (vitamin B-12) 1,000 mcg tablet 1,000 mcg PO DAILY 10/30/19 [History Last Taken Unknown] amlodipine [Norvasc] 5 mg PO DAILY #30 tab 05/03/21 [Rx Last Taken Unknown] cephalexin 500 mg PO BID 3 Days #6 cap 05/03/21 [Rx Last Taken Unknown] Allergy/AdvReac Type Severity Reaction Status Date / Time iodine Allergy Anaphylaxis Verified 05/03/21 18:01 shellfish derived Allergy Anaphylaxis Verified 05/03/21 18:01 Family History Mother CAD (coronary artery disease) Arthritis Father Colon cancer Surgical History H/O left inguinal hernia repair (~07/30/17) H/O lithotripsy (~2013) History of AAA (abdominal aortic aneurysm) repair (~2009) History of melanoma excision Hx of cholecystectomy Social History Smoking Status: Never smoker alcohol intake: never substance use type: does not use additional social history: DOES USE ASPIRIN DOES USE IBUPROFEN ROS ROS ED Constitutional Constitutional ED: Reports systems reviewed and no addt'l complaints, except as documented; Denies body ache(s), change in weight or chills Eyes Eyes: Denies acute decrease in peripheral vision, change in vision, double vision or loss of vision ENT ENT ED: Reports none; Denies ear pain, lip swelling, loss taste/smell, neck pain, otalgia or sore throat Cardiovascular Cardiovascular: Reports none; Denies abdominal pain, chest pain with activity, leg edema, lightheadedness, palpitations, rapid heart rate or syncope Respiratory/Chest Respiratory/Chest: Reports none and dyspnea; Denies change in mental status, dry cough, hemoptysis, shortness of breath at rest or shortness of breath with exertion Gastrointestinal Gastrointestinal: Reports none; Denies abdominal pain, change in stool character, diarrhea, hematemesis, hematochezia, melena, rectal bleeding or vomiting Genitourinary Genitourinary ED: Reports none; Denies abdominal discomfort, anuria, dysuria, genital pain or polyuria Musculoskeletal Musculoskeletal: Reports none; Denies arthralgias, back pain, difficulty walking, extremity pain, muscle weakness or myalgias Integumentary Reports none; Denies abscess or rash Neurologic Neurologic: Reports none; Denies abnormal gait, confusion, focal weakness, frequent falls, headache(s), loss of vision, numbness, paresthesias, radicular pain, vertigo or weakness Psychiatric Psychiatric: Reports systems reviewed and no addt'l complaints, except as documented and none; Denies behavioral changes, confusion, difficulty concentrating, hallucinations, suicidal ideation, tactile hallucinations or visual hallucinations Endocrine Endocrinology: Denies none, cold intolerance, excessive sweating, fatigue or heat intolerance Hematologic/Lymphatic Hematologic/Lymphatic: Reports none; Denies anemia, easy bleeding or easy bruising Allergic/Immunologic Allergic/Immunologic ED: Denies as per HPI, none, lip swelling, mouth swelling, throat swelling, tongue swelling or hives EXAM Physical Exam Const Vital Signs: 05/03/21 17:55 05/03/21 21:00 05/03/21 21:53 Temperature 97.6 F L Temperature Source Temporal Pulse Rate 109 H 90 92 Respiratory Rate 16 14 14 Blood Pressure 172/106 H 198/130 H 178/116 H Blood Pressure Mean 128 152 136 Pulse Ox 97 96 96 Oxygen Delivery Method Room Air Positive well nourished and well developed General Appearance ED: well developed and NAD HEENT Reports TM's clear and moist mucous membranes normocephalic and atraumatic; Negative for trauma or tenderness Tympanic Membrane ED: Yes TM's clear Eyes PERRL and EOMs intact bilaterally General Eye ED: Negative for pale conjunctiva or scleral icterus Neck no lymphadenopathy, supple and no JVD General: Negative for tenderness Chest Wall inspection of chest normal and palpation of chest normal Chest: Negative for tenderness Resp normal respiratory effort and clear to auscultation bilaterally Effort and Inspection: Negative for respiratory distress or pain with movement Auscultation: Negative for rhonchi, wheezes or diminished lung sounds Cardio regular rate, regular rhythm, S1 normal heart sound and S2 normal heart sound Cardio Narrative: 2 out of 6 systolic ejection murmur noted. Peripheral Pulses: pulses 2+ throughout GI normal to inspection, nondistended, normoactive bowel sounds, soft to palpation, non-tender, non-distended and no masses Back/Spine no CVA tenderness and no thoracic nor lumbar tenderness Extremity normal to inspection General Extremety ED: Negative for edema General Extremity: Negative for edema Neuro oriented x3, CN's II-XII intact bilaterally, no sensory deficits noted and gait normal Sensorium / Orientation: awake, alert, oriented to person, oriented to place and oriented to time Motor Exam: strength 5/5 throughout and strength abnormal Psych mental status grossly normal Skin no rashes or lesions noted and no wounds MDM MDM MDM Narrative Medical decision making narrative: Patient had nebulized tablets on arrival and he was placed on a quality assurance monitor chassis. Patient was given hydralazine 5 mg IV and this did improve his diastolic into the 1 teens to low 100s. Initially his diastolic had read as high as the 130s. I discussed case with patient's primary care physician Dr. Pranav Castaneda who would like that I start patient on Norvasc 5 mg daily and he will see him in the office in 3 days. Patient is otherwise asymptomatic and feel he can be safely discharged to home. Lab Data Attestation: I reviewed the patient's lab results. Labs: Laboratory Results - last 24 hr 05/03/21 05/03/21 18:37 18:37 WBC 8.9 RBC 4.21 L Hgb 12.5 L Hct 38.7 L MCV 91.9 MCH 29.7 MCHC 32.3 RDW Std Deviation 46.8 H RDW Coeff of Anthony 13.9 Plt Count 219 MPV 9.9 Immature Gran % (Auto) 0.400 Neut % (Auto) 72.9 H Lymph % (Auto) 16.0 L [place] % (Auto) 8.3 Eos % (Auto) 2.0 Baso % (Auto) 0.4 Absolute Neuts (auto) 6.5 Absolute Lymphs (auto) 1.43 Nucleated RBC % 0 Sodium 142 Potassium 4.1 Chloride 110 H Carbon Dioxide 28.0 Anion Gap 4 L BUN 18 Creatinine 0.91 Estim Creat Clear Calc 72.22 Est GFR (MDRD) Af Amer 103 Est GFR (MDRD) Non-Af 85 BUN/Creatinine Ratio 19.9 Glucose 117 H Calcium 8.9 Troponin I High Sens 12 EKG Initial EKG: Attestation: I personally reviewed and interpreted this EKG as follows: Comments: Sinus rhythm with a ventricular rate of 91 bpm with a prolonged QT with a QTC of 484. Discharge Plan Triage Chief Complaint: Hypertension ED Provider: Candie Pandey Dx/Rx/DC Orders Clinical Impression: Hypertension Instructions: Controlling High Blood Pressure, ED Hypertension New Begin Treatment Prescriptions: New amlodipine [Norvasc] 5 mg tablet 5 mg PO DAILY Qty: 30 RF: 0 No Action cyanocobalamin (vitamin B-12) [Vitamin B-12] 1,000 mcg tablet 1,000 mcg PO DAILY RF: 0 lovastatin 40 MG tablet 40 mg PO QHS RF: 0 omeprazole 20 MG capsule 20 mg PO QHS RF: 0 ferrous sulfate 325 MG tablet 325 mg PO DAILY RF: 0 cephalexin 500 mg capsule 500 mg PO BID 3 Days Qty: 6 RF: 0 Primary Care Provider: Pranav Castaneda Referrals: Pranav Castaneda DO [Primary Care Provider] - 05/06/21 Disposition Disposition: Home, Self Care
[2021-05-03] MEDS: 0.9% Normal Saline 1,000 ML 150 ML IV (19:08)
[2021-05-03 19:17] LABS: Absolute Lymphocyte Count 1.43 X10^3/uL (0.83-4.51); Absolute Neutrophil Count 6.5 X10^3/uL (2.0-7.7); Basophil# 0.04 X10^3/uL; Basophil% 0.4 % (0-1); Eosinophil# 0.18 X10^3/uL; Hematocrit 38.7 % (40-54); Hemoglobin 12.5 g/dL (13.0-16.5); Lymphocyte # 1.43 X10^3/ul (0.83-4.51); Mean Corp Hgb Conc 32.3 g/dL (32-36); Mean Corpuscular Hgb 29.7 pg (27.0-32.0); Mean Corpuscular Volume 91.9 fL (80-94); Mean Platelet Vol. 9.9 fl (6.2-12.0); Monocyte# 0.74 X10^3/uL; Monocyte% 8.3 % (0-10); NRBC Flagged by Analyzer 0 % (0-5); Neutrophil % 72.9 % (47-70); Platelet Count 219 K/mm3 (150-450); RBC Distribution Width CV 13.9 % (11.6-14.6); RBC Distribution Width SD 46.8 fl (35.1-43.9); Red Blood Count 4.21 M/mm3 (4.6-6.2); White Blood Count 8.9 K/mm3 (4.4-11.0)
[2021-05-03 19:29] LABS: Anion Gap 4 (5-15); BUN 18 mg/dL (7-18); BUN/Creat Ratio 19.9 RATIO (10-20); Calcium,Total 8.9 mg/dL (8.5-10.1); Chloride 110 mmol/L (98-107); Creatinine, Serum 0.91 mg/dL (0.70-1.30); EST Glomerular Filtration Rate 85 mL/min (>60); Est Glom Filt Rate - Afr Amer 103 mL/min (>60); Estimated Creatinine Clearance 72.22 ml/min; Glucose 117 mg/dL (74-106); Potassium 4.1 mmol/L (3.5-5.1); Sodium Level 142 mmol/L (136-145); Troponin-I HS 12 pg/mL (3.0-78.0)
[2021-05-03 21:00] VITALS: BP 198/130; PULSE 90; RESP 14; O2SAT 96
[2021-05-03] MEDS: hydrALAZINE 10 MG Tablet 5 MG PO (21:23)
[2021-05-03 21:53] VITALS: BP 178/116; PULSE 92; RESP 14; O2SAT 96
[2021-05-03] MEDS: amLODIPine 5 MG Tablet PO (22:23)
== END 2021-05-03 22:26 | disposition home or self-care (01) ==
PROVIDERS: Emergency Provider Emergency Medicine; PCP Family Medicine
DX: I10 Essential (primary) hypertension (principal)
CPT/HCPCS: 80048; 84484; 85025; 93005; J7030; A4216

== ENCOUNTER 2021-10-27 08:49 | Emergency (ER) | payer MEDICARE, SELFPAY ==
[2021-10-27 08:50] VITALS: BP 129/85; PULSE 83; RESP 14; TEMP 36.2; O2SAT 100; BMI 31.9
--- NOTE | 2021-10-27 09:12 | CT_ITS ---
We are attempting to reach an attending provider to discuss findings. An addendum with communication details will be sent when the communication is complete. STUDY: CT ABDOMEN AND PELVIS WITHOUT CONTRAST REASON FOR EXAM: Male, 85 years old. left flank pain RADIATION DOSAGE (If Supplied By Facility): CTDIvol = ( 22.74 ) mGy, DLP = ( 1272.63 ) mGycm TECHNIQUE: Transaxial images were obtained from the dome of the diaphragm to the symphysis pubis without oral contrast, and without intravenous contrast. Sagittal and coronal images were reconstructed. Individualized dose optimization techniques were used for this CT. COMPARISON: 12/29/2013 FINDINGS: The visualized lung bases are unremarkable. The visualized portions of the heart are within normal limits. Normal liver. There are surgical clips in the gallbladder fossa consistent with a prior cholecystectomy. Normal spleen. Normal pancreas. Normal bilateral adrenal glands. 3 cm cyst in the midsection of right kidney. Multiple nonobstructing stones in the right kidney. 2 mm obstructing stone in the distal left ureter just proximal to the ureterovesical junction with mild ureteral dilatation. Moderate sized hiatal hernia. Normal small intestine. Normal colon. The appendix is visualized and appears normal. Again seen is an abdominal aortic aneurysm treated with a stent graft. However, the aneurysm is increased in size from 6.0 cm in diameter to 12.0 cm in diameter worrisome for endoleak. Normal inferior vena cava. Normal retroperitoneum. Normal urinary bladder. There are prostatic calcifications. Normal abdominal wall. There are diffuse degenerative changes of the visualized lumbar spine. CT/Abdomen/Pelvis without Cont IMPRESSION: 1. 2 mm obstructing stone in the distal left ureter just proximal to the ureterovesical junction with mild ureteral dilatation. 2. Moderate hiatal hernia. 3. Enlarging abdominal aortic aneurysm with a stent graft now measuring 12 cm in diameter worrisome for endoleak. Electronically Signed: Memo Garcia MD at 10:22 EDT ,
--- NOTE | 2021-10-27 09:12 | RAD_ITS ---
STUDY: X-RAY CHEST REASON FOR EXAM: Male, 85 years old. weakness TECHNIQUE: PA and lateral views of the chest. COMPARISON: 08/09/2020 FINDINGS: The lungs are clear and expanded. There is no demonstrated pleural abnormality. Normal size heart. Moderate-sized hiatal hernia. Normal visualized pulmonary arteries. Normal visualized aortic arch and descending thoracic aorta. Normal visualized thoracic spine. Normal visualized ribs, clavicles, and shoulders. There is no demonstrated abnormality of the visualized soft tissue structures of the upper abdomen. RAD/Chest PA and Lateral IMPRESSION: No change from 08/09/2020. Electronically Signed: Memo Garcia MD at 10:04 EDT ,
--- NOTE | 2021-10-27 09:12 | EKG12_ITS ---
Test Reason : FLANK PAIN Blood Pressure : / mmHG Vent. Rate : 071 BPM Atrial Rate : 071 BPM P-R Int : 176 ms QRS Dur : 114 ms QT Int : 414 ms P-R-T Axes : 009 -18 000 degrees QTc Int : 449 ms Sinus rhythm with occasional Premature ventricular complexes Otherwise normal ECG Confirmed by THAIS STEPHENS, CHRISTINA ([id number]), editor producer RACHEL GRAVES ([id number]) on 10/31/2021 1:24:30 PM Referred By: TIMBO Confirmed By:CHRISTINA PLASCENCIA MD
[2021-10-27] MEDS: Morphine 4 MG/ML Syringe IV ×2 (09:21→10:36)
[2021-10-27] MEDS: Ondansetron 4 MG/2 ML Vial IV ×2 (09:21→10:45)
[2021-10-27] MEDS: 0.9% Normal Saline 1,000 ML 125 ML IV (09:22)
--- NOTE | 2021-10-27 09:26 | ED.VIS.GI ---
HPI HPI - GI History of Present Illness Chief Complaint: Flank Pain Informant: patient and family Abdominal Pain/Flank Pain Onset: Today (couple hrs) Context: Sudden Onset Timing: Continuous Location: Left Flank (mostly in back) Current Severity: Moderate Maximum Severity: Severe Worsened by: Nothing Relieved by: Nothing Nausea/Vomiting/Emesis GI Symptom: Positive for Nausea; Negative for Vomiting Diarrhea/Melena/Hematochezia GI Symptom: Negative for Diarrhea, Melena and Hematochezia Associated Symptoms Associated Symptoms: Negative for Dysuria, Frequency, Hematuria and Urgency Narrative Narrative: Patient has been feeling tired last couple days. The daughter states that he has appeared to look out of breath at times, but the patient denies feeling short of breath at all or having any chest discomfort, lightheadedness, or any other symptoms. Today, he started having kidney stone pain on the left side all of a sudden, he has had this multiple times before. The daughter states she is concerned because he had occult GI bleeding once and it caused him to be very anemic and this is how he felt and looked at that time with regards to his fatigue and weakness. [facility] Medical History (Updated 10/27/21 @ 13:[address] Marito العراقي MD) Back problem Bone fracture CVA (cerebral vascular accident) Deep vein thrombosis (DVT) of left lower extremity (~08/13/17) Diabetes Dizziness GERD (gastroesophageal reflux disease) GI bleed Hepatitis Hives Hyperlipidemia Hypertension Kidney stones Melanoma in situ of left upper arm Melanoma of left upper arm Non-rheumatic tricuspid valve insufficiency Nonrheumatic mitral (valve) insufficiency Obesity Prostate CA Right nephrolithiasis Home Medications lovastatin 40 mg PO QHS 12/30/13 [History Last Taken 09/21/19] omeprazole 20 mg PO QHS 05/28/17 [History Last Taken 09/21/19] ferrous sulfate 325 mg PO QHS 07/30/17 [History Last Taken 09/21/19] cyanocobalamin (vitamin B-12) 1,000 mcg tablet 1,000 mcg PO QHS 10/30/19 [History Last Taken Unknown] amlodipine [Norvasc] 5 mg PO QHS 10/27/21 [History Last Taken Unknown] cholecalciferol (vitamin D3) [Vitamin D3] 25 mcg PO QHS 10/27/21 [History Last Taken Unknown] Allergy/AdvReac Type Severity Reaction Status Date / Time iodine Allergy Anaphylaxis Verified 10/27/21 08:52 shellfish derived Allergy Anaphylaxis Verified 10/27/21 08:52 Family History Mother CAD (coronary artery disease) Arthritis Father Colon cancer Surgical History H/O left inguinal hernia repair (~07/30/17) H/O lithotripsy (~2013) History of AAA (abdominal aortic aneurysm) repair (~2009) History of melanoma excision Hx of cholecystectomy Social History Smoking Status: Never smoker alcohol intake: never substance use type: does not use additional social history: DOES USE ASPIRIN DOES USE IBUPROFEN ROS ROS ED Constitutional Constitutional ED: Reports fatigue and weakness; Denies chills or fever(s) Eyes Eyes: Denies change in vision or diplopia ENT ENT ED: Denies rhinorrhea or sore throat Cardiovascular Cardiovascular: Denies chest pain or palpitations Respiratory/Chest Respiratory/Chest: Denies cough or dyspnea Gastrointestinal Gastrointestinal: Reports nausea; Denies abdominal pain, diarrhea or vomiting Genitourinary Genitourinary ED: Reports flank pain; Denies dysuria or hematuria Musculoskeletal Musculoskeletal: Denies back pain or neck pain Integumentary Denies abscess or rash Neurologic Neurologic: Denies headache(s), paresthesias or weakness Psychiatric Psychiatric: Denies anxiety or suicidal thoughts EXAM Physical Exam Const Vital Signs: 10/27/21 08:50 10/27/21 10:57 10/27/21 12:19 Temperature 97.1 F L 98.5 F Temperature Source Temporal Oral Pulse Rate 83 74 95 Respiratory Rate 14 18 18 Blood Pressure 129/85 H 157/100 H 175/109 H Blood Pressure Mean 99 119 131 Pulse Ox 100 97 93 Oxygen Delivery Method Room Air Room Air Room Air Oxygen Flow Rate (L/min) 10/27/21 12:54 Temperature Temperature Source Pulse Rate Respiratory Rate Blood Pressure Blood Pressure Mean Pulse Ox 95 Oxygen Delivery Method Nasal Cannula Oxygen Flow Rate (L/min) 2 Positive well nourished and well developed General Appearance ED: well developed and NAD HEENT Reports moist mucous membranes normocephalic and atraumatic Eyes PERRL and EOMs intact bilaterally Neck full ROM and supple Resp normal respiratory effort and clear to auscultation bilaterally Cardio regular rate and regular rhythm Cardio Narrative: 3/6 decrescendo systolic murmur GI non-tender and non-distended Auscultation: normoactive bowel sounds Palpation: soft Back/Spine no CVA tenderness General Back: other FROM Extremity normal to inspection General Extremety ED: Negative for edema, pulses abnormal or tenderness General Extremity: Negative for edema or pulses abnormal Neuro oriented x3, CN's II-XII intact bilaterally and no sensory deficits noted Sensorium / Orientation: awake and alert Motor Exam: strength 5/5 throughout Skin no rashes or lesions noted and no wounds MDM MDM MDM Narrative Medical decision making narrative: Patient with a history of kidney stones and has required removal of them in the past as well as a history of a AAA, we obtained a CT of the abdomen/pelvis. It shows a 2 mm UVJ stone without hydronephrosis, as well as very distended AAA is largest 12 cm. The radiologist called me about this, and so I sent him back to CT for CT angiography of the aorta in order to characterize what is going on, unfortunately he has an iodine allergy, he does not know the details of the allergy but we pretreated him with Solu-Medrol and Benadryl, which delayed the CT to some degree. The patient remained clinically hemodynamically stable, he did continue to have pain despite multiple doses of morphine, so after he returned from CT we gave him a dose of Dilaudid, as well as multiple doses of antiemetics. He did eventually feel better, and his blood pressure remained stable. CTA results are noted as they were told to me by the radiologist and looked at below, patient does have an endoleak and I suspect this occurred acutely today, and is causing his symptoms. I think his symptoms are less likely caused by the 2 mm stone in the left UVJ that is not causing hydronephrosis. He had his repair at [facility], I called them for transfer, spoke with Dr. Pineda, he and Dr. Weaver accept the patient, and they are [facility] in order to transfer the patient there expeditiously. Lab Data Attestation: I reviewed the patient's lab results. Labs: Laboratory Results - last 24 hr 10/27/21 10/27/21 09:19 09:19 WBC 10.0 RBC 4.04 L Hgb 12.1 L Hct 37.8 L MCV 93.6 MCH 30.0 MCHC 32.0 RDW Std Deviation 48.3 H RDW Coeff of Anthony 14.1 Plt Count 270 MPV 9.7 Immature Gran % (Auto) 0.800 Neut % (Auto) 74.6 H Lymph % (Auto) 16.7 L [place] % (Auto) 6.3 Eos % (Auto) 1.2 Baso % (Auto) 0.4 Absolute Neuts (auto) 7.4 Absolute Lymphs (auto) 1.66 Nucleated RBC % 0 Sodium 141 Potassium 4.1 Chloride 109 H Carbon Dioxide 28.0 Anion Gap 4 L BUN 19 H Creatinine 1.13 Estim Creat Clear Calc 58.16 Est GFR (MDRD) Af Amer 79 Est GFR (MDRD) Non-Af 66 BUN/Creatinine Ratio 16.8 Glucose 111 H Calcium 9.4 Troponin I High Sens 6 Radiography Diagnostic Testing: Clinical Impression(s) from Imaging Studies Abdomen/Pelvis CT 10/27/21 09:12 IMPRESSION: 1. 2 mm obstructing stone in the distal left ureter just proximal to the ureterovesical junction with mild ureteral dilatation. 2. Moderate hiatal hernia. 3. Enlarging abdominal aortic aneurysm with a stent graft now measuring 12 cm in diameter worrisome for endoleak. Electronically Signed: Memo Garcia MD at 10:22 EDT Reading Location ID and State: [phone] / [employer] , Service support , ADDENDUM: 10/27/21 1031 IMPRESSION: 1. 2 mm obstructing stone in the distal left ureter just proximal to the ureterovesical junction with mild ureteral dilatation. 2. Moderate hiatal hernia. 3. Enlarging abdominal aortic aneurysm with a stent graft now measuring 12 cm in diameter worrisome for endoleak. N.B. : The above Results were Read Back by Memo Garcia MD to SILVIA العراقي, and understanding confirmed on 10/27/2021 10:24:48 (ET). Electronically Signed: Memo Garcia MD at 10:22 EDT , Chest X-Ray 10/27/21 09:12 IMPRESSION: No change from 08/09/2020. Electronically Signed: Memo Garcia MD at 10:04 EDT Reading Location ID and State: [phone] / [employer] , Service support , Abdomen CTA 10/27/21 10:24 IMPRESSION: Suspected tight 3 endoleak of aortic stent graft with fracture of the proximal aspect of the graft with an increase in the size of the aneurysm from 6 cm in diameter to 12 cm in diameter with enhancement of a 9 cm round area surrounded by mural thrombus. Electronically Signed: Memo Garcia MD at 12:40 EDT Reading Location ID and State: [phone] / [employer] , Service support , ADDENDUM: 10/27/21 1304 IMPRESSION: Suspected tight 3 endoleak of aortic stent graft with fracture of the proximal aspect of the graft with an increase in the size of the aneurysm from 6 cm in diameter to 12 cm in diameter with enhancement of a 9 cm round area surrounded by mural thrombus. N.B. : The above Results were Read Back by Memo Garcia MD to Marito العراقي MD, and understanding confirmed on 10/27/2021 12:57:36 (ET). Electronically Signed: Memo Garcia MD at 12:40 EDT Reading Location ID and State: [phone] / [employer] , Service support , EKG Initial EKG: Attestation: I personally reviewed and interpreted this EKG as follows: Interpretation: Sinus Rhythm and No Acute Injury Pattern Comments: normal EKG Discharge Plan Triage Chief Complaint: Flank Pain ED Provider: Marito العراقي Dx/Rx/DC Orders Clinical Impression: Type III endoleak of aortic graft, Ureterolithiasis Prescriptions: No Action cyanocobalamin (vitamin B-12) [Vitamin B-12] 1,000 mcg tablet 1,000 mcg PO QHS RF: 0 lovastatin 40 MG tablet 40 mg PO QHS RF: 0 omeprazole 20 MG capsule 20 mg PO QHS RF: 0 ferrous sulfate 325 MG tablet 325 mg PO QHS RF: 0 amlodipine [Norvasc] 5 mg tablet 5 mg PO QHS RF: 0 cholecalciferol (vitamin D3) [Vitamin D3] 25 mcg (1,000 unit) Capsule 25 mcg PO QHS RF: 0 Primary Care Provider: Pranav Castaneda Referrals: Pranav Castaneda DO [Primary Care Provider] - Disposition Disposition: Acute Care Hospital Discharge Location: [facility]
[2021-10-27 09:34] LABS: Absolute Lymphocyte Count 1.66 X10^3/uL (0.83-4.51); Absolute Neutrophil Count 7.4 X10^3/uL (2.0-7.7); Basophil# 0.04 X10^3/uL; Basophil% 0.4 % (0-1); Eosinophil# 0.12 X10^3/uL; Eosinophils% 1.2 % (0-5); Hematocrit 37.8 % (40-54); Hemoglobin 12.1 g/dL (13.0-16.5); Lymphocyte # 1.66 X10^3/ul (0.83-4.51); Lymphocyte % 16.7 % (19-41); Mean Corpuscular Volume 93.6 fL (80-94); Mean Platelet Vol. 9.7 fl (6.2-12.0); Monocyte# 0.63 X10^3/uL; Monocyte% 6.3 % (0-10); NRBC Flagged by Analyzer 0 % (0-5); Neutrophil # 7.42 X10^3/uL (2.7-7.7); Neutrophil % 74.6 % (47-70); Platelet Count 270 K/mm3 (150-450); RBC Distribution Width CV 14.1 % (11.6-14.6); RBC Distribution Width SD 48.3 fl (35.1-43.9); Red Blood Count 4.04 M/mm3 (4.6-6.2)
[2021-10-27 09:48] LABS: Anion Gap 4 (5-15); BUN 19 mg/dL (7-18); BUN/Creat Ratio 16.8 RATIO (10-20); Calcium,Total 9.4 mg/dL (8.5-10.1); Chloride 109 mmol/L (98-107); Creatinine, Serum 1.13 mg/dL (0.70-1.30); EST Glomerular Filtration Rate 66 mL/min (>60); Est Glom Filt Rate - Afr Amer 79 mL/min (>60); Estimated Creatinine Clearance 58.16 ml/min; Glucose 111 mg/dL (74-106); Potassium 4.1 mmol/L (3.5-5.1); Sodium Level 141 mmol/L (136-145); Troponin-I HS 6 pg/mL (3.0-78.0)
--- NOTE | 2021-10-27 10:24 | CT_ITS ---
We are attempting to reach an attending provider to discuss findings. An addendum with communication details will be sent when the communication is complete. STUDY: CTA OF THE ABDOMINAL AORTA AND BILATERAL LOWER EXTREMITIES REASON FOR EXAM: Male, 85 years old. left flank pain, AAA RADIATION DOSAGE (If Supplied By Facility): CTDIvol = ( 36.68 ) mGy, DLP = ( 1005.44 ) mGycm TECHNIQUE: Axial CT angiography multi-detector data acquisition was obtained from the lung bases to the iliac crest following intravenous administration of IV 100mL [id number]-[id number]. Axial images and MIP images were reconstructed from the axial data set. Post-processing of the angiographic images was performed, with multiplanar reformation and 3D reconstruction. Individualized dose optimization techniques were used for this CT. TECHNICAL QUALITY: Good COMPARISON: 12/29/2013 Descriptors of Narrowing: None (0%) Mild (< 50%) Moderate (50-70%) Severe (70-90%) Subtotal/Total Occlusion (90-100%) Non-Evaluable (technically non-diagnostic FINDINGS: Abdominal aorta: There is a fusiform aneurysm of the infrarenal abdominal aorta which has been treated with aortic stent graft within an interval increase in the size of the aneurysm from 6 cm in diameter to 12 cm in diameter. There was a mild kink within the proximal aspect of the stent graft. Currently there is a ring of the proximal aspect of the graft within the abdominal aorta just inferior to the origin of the renal arteries followed by wide separation of the struts of the graft with contrast-enhancement of the 9 cm round area within the aneurysm worrisome for a type III endoleak. There is some surrounding mural thrombus there is contrast enhancement within the distal aspect of the graft with perfusion of the common iliac arteries. Celiac and superior mesenteric arteries: Widely patent celiac axis. Mild (40%) stenosis of the proximal superior mesenteric artery. Inferior mesenteric artery: Excluded Right renal artery(arteries): No demonstrated narrowing. Left renal artery(arteries): No demonstrated narrowing. CT/CTA Abdomen W/WO Contrast IMPRESSION: Suspected tight 3 endoleak of aortic stent graft with fracture of the proximal aspect of the graft with an increase in the size of the aneurysm from 6 cm in diameter to 12 cm in diameter with enhancement of a 9 cm round area surrounded by mural thrombus. Electronically Signed: Memo Garcia MD at 12:40 EDT ,
[2021-10-27] MEDS: DiphenhydrAMINE 50 MG/ML Syringe 25 MG IV (10:36)
[2021-10-27] MEDS: MethylPREDNISolone 125 MG/2 ML Vial IV (10:37)
[2021-10-27 10:57] VITALS: BP 157/100; PULSE 74; RESP 18; TEMP 36.9; O2SAT 97
[2021-10-27] MEDS: Metoclopramide 10 MG/2 ML Vial 5 MG IV (12:15)
[2021-10-27] MEDS: HYDROmorphone 0.5 MG/0.5 ML SYRINGE IV (12:15)
[2021-10-27 12:19] VITALS: BP 175/109; PULSE 95; RESP 18; O2SAT 93
[2021-10-27 12:54] VITALS: O2SAT 88; O2SAT 95
--- NOTE | 2021-10-27 13:20 | NURSING ---
1257 CALLED [facility] ABOUT TRANSFER
[2021-10-27 13:28] VITALS: BP 155/103; PULSE 95; RESP 16; TEMP 36.9; O2SAT 96
--- NOTE | 2021-10-27 13:38 | NURSING ---
[facility] J 31 BED 2 NURSE TO NURSE [phone]
== END 2021-10-27 14:13 | disposition short-term general hospital (02) ==
PROVIDERS: Emergency Provider Emergency Medicine; PCP Family Medicine; Visit Provider Emergency Medicine
DX: T82.330A Leakage of aortic (bifurcation) graft (replacement), initial encounter (principal); N20.1 Calculus of ureter; E78.5 Hyperlipidemia, unspecified; I10 Essential (primary) hypertension; K21.9 Gastro-esophageal reflux disease without esophagitis; Z79.899 Other long term (current) drug therapy; Z86.73 Personal history of transient ischemic attack (TIA), and cerebral infarction without residual deficits; Z86.718 Personal history of other venous thrombosis and embolism
CPT/HCPCS: 71046; 74175; 74176; 80048; 84484; 85025; 93005; 96374; 96375; 96376; 99285; J7030; Q9967; A4216; J2405